=== PATIENT | female | born 1970 | race Caucasian/White ===

== ENCOUNTER 2016-04-07 03:07 | Inpatient (IN) | payer BC ==
[~2016-04-07] VITALS: Ht 167.6 cm; Wt 243.0 kg
[2016-04-07] VITALS (11 sets, daily range): BP systolic 93–113; BP diastolic 44–59; Ht 167.6 cm; Wt 243.0 kg
[~2016-04-07 03:07] MED LIST: ABILIFY10 MG PO; ACETAMINOPHEN325 MG PO; ACTOPLUS MET 151 TA2 PO; ACTOS15 MG PO; ADVAIR HFA [SP]12 GM INH; ASPIRIN81 MG PO; ATIVAN1 MG PO; BAYER CHEWABLE81 MG PO; BUMETANIDE0.5 MG PO; BUMEX 1 MG TAB1 MG PO; BUMEX 1 MG/1 MG/4 ML PO; CARDIZEM CD240 MG PO; CIPRO500 MG PO; CLEOCIN HCL150 MG PO; COLACE100 MG PO; CYCLOBENZAPRINE10 MG PO; DETROL2 MG PO; DILAUDID2 MG PO; DIOVAN320 MG PO; ELIQUIS2.5 MG PO; ESTER-C 500 MG1 TAB; FERROUS SULFAT325 MG PO; GLUCOPHAGE500 MG PO; HYDROCODONE-APA1 TAB PO; K-DUR20 MEQ PO; K-TAB10 MEQ PO; KLOR-CON M2020 MEQ PO; LANTUS INSULIN10 ML SC; LANTUS SOL100 UNIT/1 SC; LASIX40 MG PO; LEVAQUIN750 MG PO; LEVOTHYROXINE100 MCG PO; LEVOTHYROXINE75 MCG PO; LOMOTIL TABLET1 TAB PO; LOPRESSOR25 MG PO; LOZOL1.25 MG PO; MAG-OX 400 MG400 MG PO; MAGNESIUM OXID500 MG PO; MATZIM LA420 MG PO; METAMUCIL FIB1 WAFER PO; METOPROLOL TAR100 M1 PO; MS CONTIN30 MG PO; MUCINEX DM ER1 EAC1 PO; MULTIPLE VITAMI1 TA1 PO; NEURONTIN 300300 MG PO; PHENERGAN25 M1 PO; PREVACID30 MG PO; PROMOD LIQUID P30 M1 PO; PROTONIX20 MG PO; PROTONIX40 MG PO; PROVENTIL HFA6.7 GM INH; PROZAC40 MG PO; RELAFEN500 MG PO; RELAFEN750 MG PO; REVATIO20 MG PO; RIFADIN300 MG PO; SINGULAIR10 MG PO; SUPER B COMPLE150 MG PO; SYNTHROID50 MCG PO; TEKTURNA300 MG PO; TOLTERODINE PO; TOPAMAX100 MG PO; TOPAMAX50 MG PO; TOPROL XL200 MG PO; TUMS500 MG PO; VITAMIN D31000 UNIT PO; VYVANSE50 MG PO; VYVANSE70 MG PO; XOPENEX 1.1.25 MG/3 UPD; ZOFRAN4 MG PO
[2016-04-07 04:33] LABS: APPEARANCE CLOUDY (CLEAR); BILIRUBIN NEGATIVE (NEGATIVE); COLOR DK YELLOW (YELLOW); GLUCOSE NEGATIVE (NEGATIVE); KETONE NEGATIVE (NEGATIVE); LEUKOCYTE ESTERASE 2+ (NEGATIVE); NITRITE POSITIVE (NEGATIVE); PROTEIN TRACE mg/dL (NEGATIVE); SPECIFIC GRAVITY 1.015 (1.005-1.020); UROBILINOGEN NORMAL (NORMAL)
[2016-04-07 04:45] LABS: RED CELLS - URINE 25-50 /hpf (0-5); WHITE CELLS - URINE >50 /hpf (0-5)
[2016-04-07 04:46] LABS: BACTERIA MANY /hpf (NONE SEEN); CALCIUM OXALATE CRYSTALS 25-50 /hpf (NONE SEEN); EPITHELIAL CELLS 0-5 /hpf (0-5); GRANULAR CAST 0-5 /lpf (NONE SEEN); HYALINE CAST 0-5 /lpf (NONE SEEN); MUCUS >1+ /lpf (NONE SEEN)
--- NOTE | 2016-04-07 07:53 | NUR ---
* Is the patient Alert and Oriented? Yes 0 * PCP DR. BIRCH 0 * Pharmacy [facility] PROVIDES MEDICATION 0 * Preadmission Environment [facility] 0 * Facility Name [facility] 0 * ADLs Total Dependent 0 * Equipment None 0 * List name and contact numbers for known caregivers / representatives who currently or will assist patient after discharge: PARENTS: ARELY AND JOSE MARIA RUSSO 0 * Community resources currently utilized None 0 * Additional services required to return to the preadmission environment? No 0 * Can the patient safely return to the preadmission environment? Yes 0 * Has this patient been hospitalized within the prior 30 days at any hospital? 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 I SPOKE WITH HER PARENTS, ARELY AND JOSE MARIA RUSSO. THEY TELL ME THAT PATIENT HAS BEEN IN THE [facility] SINCE OCTOBER 2015. HER PCP IS DR. BIRCH. LUZ MARIA IS BEDFAST AND UNABLE TO CARE FOR HERSELF. THE PLAN IS FOR THE PATIENT TO RETURN TO THE [facility] AT DISCHARGE.
[2016-04-07 10:40] LABS: BASOPHILS 0.2 % (0.0-2.0); EOSINOPHILS 0.8 % (0-7); HEMATOCRIT 30.3 % (36.0-48.0); HEMOGLOBIN 9.6 g/dL (12-16); IMMATURE GRANULOCYTES 0.6 % (0-5); LYMPHOCYTES 5.5 % (15-50); MCH 29.3 pg (26.0-34.0); MCHC 31.7 g/dL (31.0-37.0); MCV 92.4 fL (80.0-100.0); MEAN PLATELET VOLUME 10.5 fL (7.4-10.4); MONOCYTES 5.5 % (2-11); NEUTROPHILS 87.4 % (40-80); PLATELET COUNT 274 10x3/uL (130-400); RBC 3.28 10x6/uL (4.00-5.40); WBC 17.8 10x3/uL (4.8-10.8)
[2016-04-07 10:53] LABS: ALBUMIN 1.8 g/dL (3.4-5.0); ANION GAP 14.2 mmol/L (8-16); BILIRUBIN - TOTAL 2.25 mg/dL (0.2-1.3); CALCIUM 9.2 mg/dL (8.5-10.1); CARBON DIOXIDE 24.8 mmol/L (21.0-32.0); CREATININE - SERUM 1.4 mg/dL (0.6-1.3); PROTEIN - SERUM 6.4 g/dL (6.4-8.2)
--- NOTE | 2016-04-07 11:08 | NUR ---
1100- BATH AND LINENS CHANGED, WEEPING FROM BLISTERS ON R SIDE OF ABD NOTED. CLEANED AND LINENS CHANGED.
--- NOTE | 2016-04-07 11:43 | NUR ---
1143-CRITICAL AMONIA REPORTED TO DR SALAS. REC'D ORDERS.
--- NOTE | 2016-04-07 14:48 | NUR ---
PT TRANSFERED TO [facility] BED. WEAPING EDEMA ON LINENS. PT CLEANED AND LINENS CHANGED.
--- NOTE | 2016-04-07 15:09 | NUR ---
1530- LEVOPHED TITRATED TO OFF, BP 98/60. RT GROIN DSNG CDI. NO HEMATOMA.
--- NOTE | 2016-04-07 19:30 | NUR ---
ASSESSMENT COMPLETE. S1S2. NSR SHOWING ON MONITOR. PT ON TURN BED. WEEPING EDEMA NOTED TO EXTREMITIES. 22GAUGE PIV IN RIGHT CHEST. PT HAS CHRONIC CATH IN PLACE. WEAKNESS AND SWELLING IN ALL EXTREMITIES; OBESE. DIFFICULTY MAKING POSITION CHANGES. PT CONFUSED ORIENTED TO SELF. REDDENED AREA BILATERAL LEGS; REDDENED AREA BUTTOCKS/COCCYX. VSS. SEE FLOW SHEET FOR DETAILS.
--- NOTE | 2016-04-07 21:45 | NUR ---
PT RESTING; EYES CLOSED. NO DISTRESS NOTED. VSS. WILL CONTINUE TO MONITOR.
--- NOTE | 2016-04-07 22:17 | NUR ---
PATIENT RECIEVED FROM ICU ON 2LPM O2 VIA NC. MILD CONFUSION NOTED WITH SOME SLOW TO RESPOND
[2016-04-08] VITALS: BP 121/76
--- NOTE | 2016-04-08 02:07 | NUR ---
PATIENT AWAKE AND ALERT, STATED HE HAD 10/10 PAIN TO THE ABDOMEN WITH NO NAUSEA. HE IS USING HIS DIRECTOR HRIS
[2016-04-08 04:00] VITALS: BP 136/69
[2016-04-08 05:39] LABS: BASOPHILS 0.2 % (0.0-2.0); EOSINOPHILS 2.5 % (0-7); HEMATOCRIT 29.6 % (36.0-48.0); HEMOGLOBIN 9.3 g/dL (12-16); IMMATURE GRANULOCYTES 0.7 % (0-5); MCHC 31.4 g/dL (31.0-37.0); MCV 92.2 fL (80.0-100.0); MEAN PLATELET VOLUME 10.6 fL (7.4-10.4); MONOCYTES 9.6 % (2-11); PLATELET COUNT 288 10x3/uL (130-400); RBC 3.21 10x6/uL (4.00-5.40); RDW 16.1 % (11.5-14.5)
[2016-04-08 05:45] LABS: ANION GAP 16.5 mmol/L (8-16); CALCIUM 9.4 mg/dL (8.5-10.1); CARBON DIOXIDE 22.3 mmol/L (21.0-32.0); CREATININE - SERUM 1.6 mg/dL (0.6-1.3); POTASSIUM - SERUM 4.8 mmol/L (3.5-5.1)
[2016-04-08 05:51] LABS: WBC 12.1 10x3/uL (4.8-10.8)
[2016-04-08 08:19] VITALS: BP 100/60
[2016-04-08 12:42] VITALS: BP 104/47
[2016-04-08 16:03] VITALS: BP 104/66
--- NOTE | 2016-04-08 17:39 | NUR ---
PT HAS HAD SEVERAL VERY LARGE LOOSE STOOLS TODAY. REFUSING CHRONULAC AT THIS TIME STILL. PADS UNDER LEGS AND TRUNK CHANGED SEVERAL TIMES TODAY DUE TO WEEPING. DRESSING CHANGED TO RIGHT HIP AREA TO INCLUDE 2 ABD PADS AND TAPE. NUMEROUSE BLISTERS NOTED TO BODY. WEIGHT AT 483 PER BEDSCALE.
[2016-04-09] VITALS: BP 82/40
[2016-04-09 04:00] VITALS: BP 98/58
--- NOTE | 2016-04-09 07:00 | NUR ---
PT REC'D FROM LAMIN MERCADO. PT RESTING IN BED WITH FAMILY IN ROOM. AAOX4. RATING CURRENT PAIN IN LEGS 09/03. WANTING TO KNOW WHY PAIN MEDICATION IS STILL ON HOLD. TOLD HER I WOULD SPEAK WITH THE DOCTOR. 3L OF O2 VIA NC ON. PT HAS DRY HACKING COUGH. SKIN TIGHT, WARM, AND MOIST. DRESSING TO RT SIDE CLEAN, DRY, AND INTACT. BED LOW, CALL LIGHT IN REACH, WILL CPOC.
[2016-04-09 08:03] LABS: BASOPHILS 0.4 % (0.0-2.0); EOSINOPHILS 2.9 % (0-7); HEMATOCRIT 29.2 % (36.0-48.0); HEMOGLOBIN 9.4 g/dL (12-16); IMMATURE GRANULOCYTES 1.7 % (0-5); LYMPHOCYTES 13.4 % (15-50); MCHC 32.2 g/dL (31.0-37.0); MCV 90.1 fL (80.0-100.0); MEAN PLATELET VOLUME 10.6 fL (7.4-10.4); MONOCYTES 10.5 % (2-11); NEUTROPHILS 71.1 % (40-80); PLATELET COUNT 282 10x3/uL (130-400); RBC 3.24 10x6/uL (4.00-5.40); RDW 15.9 % (11.5-14.5); WBC 13.8 10x3/uL (4.8-10.8)
[2016-04-09 08:20] LABS: ALBUMIN 1.5 g/dL (3.4-5.0); ANION GAP 15.2 mmol/L (8-16); BILIRUBIN - TOTAL 1.87 mg/dL (0.2-1.3); CARBON DIOXIDE 23.9 mmol/L (21.0-32.0); CREATININE - SERUM 1.8 mg/dL (0.6-1.3); POTASSIUM - SERUM 4.1 mmol/L (3.5-5.1)
[2016-04-09 09:06] VITALS: BP 97/52
--- NOTE | 2016-04-09 11:50 | NUR ---
MORNING MEDS PASSED. CH AMMONIA OF 58, DR'S AWARE AND ALREADY ON 45ML'S OF LACTULOSE. DR. BREAUX IN ROOM DISCUSSING POC. STATED HE WANTED TO WAIT TO RESTART PAIN MEDS DUE TO AMS ON ADMIT. DR. BREAUX STATES HE WANTS OF NEW FRANCIS AND NEW UA AND UC DONE. WILL PUT IN ORDERS STATED. BED LOW, CALL LIGHT IN REACH, WILL CPOC.
[2016-04-09 12:26] VITALS: BP 121/62
[2016-04-09 16:13] VITALS: BP 110/55
--- NOTE | 2016-04-09 16:55 | NUR ---
FSBS 236, 4 UNITS OF HUMALOG ADMINISTERED PER SS TO L ARM. BED LOW, CALL LIGHT IN REACH, WILL CPOC.
--- NOTE | 2016-04-09 18:00 | NUR ---
NEW FRANCIS CATHETER INSERTED USING STERILE TECHNIQUE. X4 ASSIST FROM STAFF TO POSITION PT. IMMEDIATE RETURN OF CLEAR YELLOW URINE WITH SOME BLOOD CLOTS IN IT. STAT LOCK APPLIED TO R LEG. BED LOW, CALL LIGHT IN REACH, WILL CPOC.
[2016-04-09 19:00] VITALS: BP 91/50
[2016-04-10] VITALS: BP 100/60
--- NOTE | 2016-04-10 01:10 | NUR ---
PT RESTING IN BED. NO SIGNS OF DISTRESS. NO COMPLAINTS OF PAIN. RECEIVING BREATHING TREATMENT. NO NEEDS AT THIS TIME.
[2016-04-10 04:00] VITALS: BP 95/52
--- NOTE | 2016-04-10 07:00 | NUR ---
PT REC'D FROM LAMIN MERCADO. RESTING IN BED WATCHING TV. AAOX4. NO COMPLAINTS AT THIS TIME. RESP EVEN AND UNLABORED. BED LOW, CALL LIGHT IN REACH, WILL CPOC.
[2016-04-10 07:32] LABS: BASOPHILS 0.4 % (0.0-2.0); EOSINOPHILS 4.4 % (0-7); HEMATOCRIT 29.6 % (36.0-48.0); HEMOGLOBIN 9.3 g/dL (12-16); IMMATURE GRANULOCYTES 4.8 % (0-5); LYMPHOCYTES 11.2 % (15-50); MCH 28.7 pg (26.0-34.0); MCHC 31.4 g/dL (31.0-37.0); MCV 91.4 fL (80.0-100.0); MONOCYTES 10.4 % (2-11); NEUTROPHILS 68.8 % (40-80); PLATELET COUNT 304 10x3/uL (130-400); RBC 3.24 10x6/uL (4.00-5.40); RDW 15.8 % (11.5-14.5)
[2016-04-10 07:48] LABS: ALBUMIN 1.4 g/dL (3.4-5.0); BILIRUBIN - TOTAL 1.7 mg/dL (0.2-1.3); CALCIUM 8.7 mg/dL (8.5-10.1); CARBON DIOXIDE 24.6 mmol/L (21.0-32.0); CREATININE - SERUM 1.7 mg/dL (0.6-1.3); POTASSIUM - SERUM 3.6 mmol/L (3.5-5.1); PROTEIN - SERUM 6.9 g/dL (6.4-8.2)
[2016-04-10 08:22] VITALS: BP 91/51
--- NOTE | 2016-04-10 11:00 | NUR ---
MORNING MEDS PASSED AT THIS TIME. DRESSING TO R ABD CHANGED DUE TO SEROUS, ODOROUS DRAINAGE. FRANCIS CATHETER CLAMPED TO COLLECT IN BLADDER AND OBTAIN URINE SAMPLE. ASSISTED PT ONTO BED WHITEHEAD. WILL CPOC.
--- NOTE | 2016-04-10 11:45 | NUR ---
PT HAD LARGE WATERY BM THAT WAS GREEN. NEW STAT LOCK PLACED ON RT LEG. URINE SAMPLE OBTAINED FROM PORT ON FRANCIS. WILL SEND TO LAB. PT REPOSITIONED IN BED. BED LOW, CALL LIGHT IN REACH, WILL CPOC.
--- NOTE | 2016-04-10 12:10 | NUR ---
CURRENT FSBS 167. PT REFUSING INSULIN AT THIS TIME. WILL CONTINUE TO MONITOR.
[2016-04-10 12:23] VITALS: BP 120/56
[2016-04-10 13:02] LABS: APPEARANCE SLT CLOUDY (CLEAR); BACTERIA MODERATE /hpf (NONE SEEN); BILIRUBIN NEGATIVE (NEGATIVE); CALCIUM OXALATE CRYSTALS RARE /hpf (NONE SEEN); COLOR YELLOW (YELLOW); GLUCOSE NEGATIVE (NEGATIVE); HYALINE CAST 0-5 /lpf (NONE SEEN); KETONE NEGATIVE (NEGATIVE); LEUKOCYTE ESTERASE 1+ (NEGATIVE); MUCUS <1+ /lpf (NONE SEEN); NITRITE NEGATIVE (NEGATIVE); PROTEIN NEGATIVE (NEGATIVE); UROBILINOGEN NORMAL (NORMAL)
[2016-04-10 16:38] VITALS: BP 110/58
--- NOTE | 2016-04-10 17:00 | NUR ---
CURRENT FSBS 221. 4 UNITS OF HUMALOG ADMINISTERED PER SS TO L ARM. BED LOW, CALL LIGHT IN REACH, WILL CPOC.
[2016-04-10 19:00] VITALS: BP 105/52
--- NOTE | 2016-04-10 19:47 | NUR ---
PT REPORT GIVEN TO LAMIN MERCADO.
--- NOTE | 2016-04-10 19:52 | NUR ---
REC;D. IN BED CONTACT ISOLATION REMAINS IN PROGRESS.4+ WEEPING EDEMA ALL EXT. WITH REDNESS.ALSO RT. SIDE AND LOWER ABD. PELVIC AREA. FRANCIS PATENT DRAINING DK. JOSÉ URINE.SPECIALITY BED. WILL CONTINUE TO MONITOR FOR ANY CHGES. AND FOLLOW CURRENT PLAN OF CARE.
--- NOTE | 2016-04-11 02:00 | NUR ---
RESTING WITH EYES CLOSED, RESP WITH EASE, NO DISTRESS NOTED, SAFETY PRECAUTIONS IN PLACE, CL IN REACH
[2016-04-11 04:38] LABS: BASOPHILS 0.5 % (0.0-2.0); EOSINOPHILS 4.4 % (0-7); HEMATOCRIT 29.6 % (36.0-48.0); HEMOGLOBIN 9.5 g/dL (12-16); IMMATURE GRANULOCYTES 7.1 % (0-5); LYMPHOCYTES 11.4 % (15-50); MCH 29.1 pg (26.0-34.0); MCHC 32.1 g/dL (31.0-37.0); MCV 90.8 fL (80.0-100.0); MEAN PLATELET VOLUME 10.5 fL (7.4-10.4); MONOCYTES 9.8 % (2-11); NEUTROPHILS 66.8 % (40-80); PLATELET COUNT 309 10x3/uL (130-400); RBC 3.26 10x6/uL (4.00-5.40); WBC 16.6 10x3/uL (4.8-10.8)
[2016-04-11 04:51] LABS: ANION GAP 15.6 mmol/L (8-16); CALCIUM 9.3 mg/dL (8.5-10.1); CARBON DIOXIDE 22.2 mmol/L (21.0-32.0); CREATININE - SERUM 1.7 mg/dL (0.6-1.3); POTASSIUM - SERUM 3.8 mmol/L (3.5-5.1)
--- NOTE | 2016-04-11 07:15 | NUR ---
SLEEPING QUIETLY AT PRESENT RESP EVEN AND UNLABORED AT PRESENT DSG TO RT ABD CLEAN DRY INTACT AT PRESENT ABD HARD AT PRESENT IV CONT AT 10CC/HR/IVAC.
--- NOTE | 2016-04-11 07:42 | HP ---
PATIENT: JANETTE RUSSO MEDICAL RECORD: [id number] ACCOUNT: [id number] LOCATION:D.[id number] : 70 ADMISSION DATE: 04/07/16 HISTORY AND PHYSICAL EXAMINATION CHIEF COMPLAINT: Altered mental status and confusion. HISTORY OF PRESENT ILLNESS: The patient is a 45-year-old female who is morbidly obese. She had recently been admitted to the [facility]. She has been unable to care for herself. She is morbidly obese and is bedbound. Apparently, over the last couple days, she has had more confusion. She has had a possibly urinary tract infection. This continued to worsen. She presented to the Emergency Room for evaluation. PAST MEDICAL HISTORY: Significant that the patient has had cough. She has had a history of morbid obesity. The patient has also had hypertension, gastroesophageal reflux, and diabetes mellitus. The patient has had pulmonary hypertension, congestive heart failure, history of asthma and hypothyroidism. PAST SURGICAL HISTORY: This patient has had a cholecystectomy and bilateral ankle fracture. She had a left hip replacement. She is a . SOCIAL HISTORY: The patient is single. She is a 4-year college graduate. Former smoker, quit in November 1999. No alcohol consumption. FAMILY HISTORY: History of depression as well as hypertension. Mother and father both are living. ALLERGIES: SHE IS ALLERGIC TO DYAZIDE, HYDROCHLOROTHIAZIDE, SULFA, TRIAMTERENE. MEDICATIONS: Include Valsartan 320 mg once daily, Actos plus metformin 15/500 1 p.o. b.i.d., Metoprolol ER 200 mg 1 p.o. every day, Bumex 0.5 mg once a day, KCl 20 mEq once a day, Detrol 2 mg once a day, nabumetone 750 once a day, Prozac 80 mg once a day, indapamide 1.25 p.r.n., levothyroxine 75 mcg once a day, diltiazem 420 mg once a day, ferrous sulfate 325 once a day, vitamin ____ 100 mg once a day, Flexeril 10 mg p.o. q.8 hours p.r.n., Advair 115/21 one puff b.i.d., Singulair 10 mg once a day, Ativan 1 mg p.r.n., aspirin 81 mg once a day, and [place] 10/325 p.r.n. REVIEW OF SYSTEMS: CONSTITUTIONAL: She denies any headaches, seizures, or syncope. She denies change in visual or auditory acuity. PULMONARY: She has had a cough. She denied congestion. CARDIOVASCULAR: No chest pain, palpitations, PND or orthopnea. GASTROINTESTINAL: No chronic nausea, vomiting, melena or hematochezia. GENITOURINARY: No urgency, frequency, or dysuria. PHYSICAL EXAMINATION: GENERAL: She is a morbidly obese female who is lying supine in the bed. Her weight is over 480 pounds, BMI of 77.5. VITAL SIGNS: Temperature 99, her pulse 76, respirations 20, blood pressure 124/68, O2 sat is 98% on room air. HEENT: Head is normocephalic. No lesions. Ears: TMs clear. Eyes: Pupils equal, round and reactive to light. Extraocular movements intact. Nasal cavity, oral cavity and oropharynx clear. HISTORY AND PHYSICAL [id number] JANETTE RUSSO NECK: Supple. There is no adenopathy. HEART: Has regular rhythm. No murmurs, gallops or rubs. LUNGS: Clear. ABDOMEN: Soft, bowel sounds positive and some suprapubic tenderness is noted. EXTREMITIES: The patient has 2+ dependent edema. She has a moderate amount of erythema. LABORATORY DATA: White count was elevated at 13.9, hemoglobin 9.2, hematocrit was 28.8 and her platelets were 275. She had a good blood sugar of 185, BUN is 42, creatinine 1.5. Sodium was 136, potassium 5, chloride is 103, CO2 is 24. Her urine shows 2+ blood. She has greater than 50 wbc's per high power field between 25 and 50 rbc's per high power field, many bacteria were seen. She had ABGs 7.48 pH, pCO2 was 28.9, her O2 was 109, bicarbonate was 21.5, and O2 sat 98. ASSESSMENT: 1. Pyelonephritis early sepsis. 2. Morbid obesity. 3. Diabetes. 4. Hypothyroidism. 5. History of congestive heart failure. 6. History of chronic renal insufficiency. 7. Diabetes. PLAN: The patient was admitted, placed on Levaquin as well as Zosyn and will obtain blood cultures as well as urine cultures and also start the patient on Humalog sliding scale q.a.c. and q.h.s. and continue to evaluate. TRANSINT:[id number] Voice Confirmation ID: [id number] DOCUMENT ID: [id number] YENNIFER BIRCH MD at 0742 CC: [id number] DICTATION DATE: 04/07/16711 GROUND SYSTEMS ENGINEER: 04/07/16 0837 ADM IN [facility] [address] [id number]
--- NOTE | 2016-04-11 09:00 | NUR ---
MOM AND DAD AT BEDSIDE MEDS GIVEN ALISSA WELL AT PRESENT N/C.
[2016-04-11 10:20] VITALS: BP 103/39
--- NOTE | 2016-04-11 11:00 | NUR ---
DOZING AT SHORT INTERVALS AT PRESENT DENIES ANY OTHER NEEDS AT PRESENT.
--- NOTE | 2016-04-11 13:00 | NUR ---
WATCHING TV QUIETLY AT PRESENT PARENTS AT BEDSIDE.
--- NOTE | 2016-04-11 13:08 | NUR ---
SLEEPING QUIETLY AT PRESENT RESP EVEN AND UNLABORED AT PRESENT DENIES ANY NEEDS AT PRESENT FRANCIS CATH IN PLACE AND DRAINING YELLOW URINE RAMON LOWER EXTERMETIES AT PRESENT.
[2016-04-11 13:50] VITALS: BP 83/44
--- NOTE | 2016-04-11 13:54 | NUR ---
NUTRITION MONITORING & EVAL TOLERATING AHA DIET. 50% INTAKE LUNCH. RD FOLLOWING
--- NOTE | 2016-04-11 15:00 | NUR ---
QUIET IN ROOM N/C VOICED AT PRESENT.
[2016-04-11 16:58] VITALS: BP 115/51
--- NOTE | 2016-04-11 17:00 | NUR ---
AWAKE ALERT AT PRESENT N/C WATCHING YV QUIETLY.
--- NOTE | 2016-04-11 19:30 | NUR ---
PATIENT HAVING PAIN IN HER LEFT LEG AND HIP. PAGED DR. GO WHO SAID IT WAS OK TO GIVE PATIENT TYLENOL FOR PAIN.
[2016-04-11 21:00] VITALS: BP 114/53
[2016-04-12 01:00] VITALS: BP 122/51
--- NOTE | 2016-04-12 03:10 | NUR ---
CHANGED BANDAGE ON PATIENT'S RIGHT SIDE.
[2016-04-12 05:00] VITALS: BP 102/53
[2016-04-12 07:11] LABS: ANION GAP 16.1 mmol/L (8-16); CARBON DIOXIDE 21.6 mmol/L (21.0-32.0); CREATININE - SERUM 1.6 mg/dL (0.6-1.3); PHOSPHOROUS 3.6 mg/dL (2.5-4.9); POTASSIUM - SERUM 3.7 mmol/L (3.5-5.1)
[2016-04-12 07:38] LABS: BASOPHILS 0.6 % (0.0-2.0); HEMATOCRIT 28.4 % (36.0-48.0); HEMOGLOBIN 9.1 g/dL (12-16); IMMATURE GRANULOCYTES 9.7 % (0-5); LYMPHOCYTES 10.9 % (15-50); MCH 29.3 pg (26.0-34.0); MCV 91.3 fL (80.0-100.0); MEAN PLATELET VOLUME 10.5 fL (7.4-10.4); MONOCYTES 7.7 % (2-11); NEUTROPHILS 67.1 % (40-80); PLATELET COUNT 333 10x3/uL (130-400); RBC 3.11 10x6/uL (4.00-5.40); RDW 16.2 % (11.5-14.5)
--- NOTE | 2016-04-12 08:00 | NUR ---
PT ASSESSMENT COMPLETE NO DISTRESS NTOED VOICES ALL NEEDS TO STAFF COMLAINS OF PAIN TO RIGHT HIP SPOKE WITH DR BIRCH NEW ORDER FOR NORCO FOR PAIN WILL GIVE PER ORDER FOR PAIN CONTROL. FRANCIS PATENT TO CLEAR YELLOW URINE CATH CARE PER ORDER. WILL MONITOR.,
[2016-04-12 08:29] VITALS: BP 114/42
--- NOTE | 2016-04-12 10:44 | NUR ---
RESTING QUIETLY IN BED. DENIES NEEDS. NO PAIN AT THIS TIME. ON BIG BOY BED. REPORTS USE OF PO PAIN MEDS EFFECTIVE.
--- NOTE | 2016-04-12 13:17 | NUR ---
SITTING UP IN BED EATING LUNCH MEAL. NO DISTRESS NOTED FAMILY AT SIDE WANTS TO DISCHARGE BACK TO SKILLED NURSING.
[2016-04-12 13:36] VITALS: BP 120/42
[2016-04-12 15:59] VITALS: BP 110/53
[2016-04-12 19:00] VITALS: BP 100/47
[2016-04-13 04:00] VITALS: BP 103/45
[2016-04-13 07:38] LABS: HEMOGLOBIN 9.1 g/dL (12-16); MCH 28.8 pg (26.0-34.0); MCHC 31.4 g/dL (31.0-37.0); MCV 91.8 fL (80.0-100.0); MEAN PLATELET VOLUME 9.9 fL (7.4-10.4); PLATELET COUNT 345 10x3/uL (130-400); RBC 3.16 10x6/uL (4.00-5.40); RDW 16.1 % (11.5-14.5); WBC 20.8 10x3/uL (4.8-10.8)
[2016-04-13 07:40] LABS: ANION GAP 12.3 mmol/L (8-16); CALCIUM 8.8 mg/dL (8.5-10.1); CARBON DIOXIDE 25.1 mmol/L (21.0-32.0); CREATININE - SERUM 1.7 mg/dL (0.6-1.3); POTASSIUM - SERUM 3.4 mmol/L (3.5-5.1)
[2016-04-13 08:15] LABS: EOSINOPHILS 5 % (0-7); LYMPHOCYTES 10 % (15-50); MONOCYTES 4 % (2-11); NEUTROPHILS 73 % (40-80)
[2016-04-13 08:16] LABS: PLATELET ESTIMATE NORMAL
[2016-04-13 08:24] VITALS: BP 104/47
--- NOTE | 2016-04-13 13:00 | NUR ---
PATIENT CHANGED AND BATHED AT THIS TIME. DRESSING TO RIGHT SIDE CHANGED DUE TO DRAINAGE. BOUDREUXS PLACED TO SKIN FOLDS AND GROIN AND BUTTOCKS FOR RASH AND EXCORIATION. CATHETER CARE COMPLETE. IV INTACT. NO COMPLAINTS. CALL LIGHT WITHIN REACH.
[2016-04-13 13:07] VITALS: BP 106/45
[2016-04-13 15:50] VITALS: BP 129/48
--- NOTE | 2016-04-13 18:49 | NUR ---
PATIENT IN BED WITH EYES CLOSED RESTING QUIETLY AT THIS TIME. NO SIGNS OF DISTRESS OR COMPLAINTS. IV INTACT. CALL LIGHT WITHIN REACH.
[2016-04-13 19:00] VITALS: BP 95/42
--- NOTE | 2016-04-13 20:45 | NUR ---
AWAKE,ALERT,ORIENTED X 3. SKIN WARM DRY RESP EVEN AND UNALBOERED. SITTING UP IN BED WATCHING TV. DRSG TO RIGHT ABD.INTACT. NO DRAINAGE NOTED. IV TO RIGHT SHOULDER INTACT WITH NO REDNESS OR EDEMA NOTED. NS INFUSING AT KVO RATE. FRANCIS PATENT AND DRAINING CL YELLOW URINE. CL IN REACH.
[2016-04-14] VITALS: BP 94/38
--- NOTE | 2016-04-14 02:51 | NUR ---
EYES CLOSED RESP EVEN AND UNALBORED.NO DISTRESS NOTED. CL IN REACH.
[2016-04-14 04:00] VITALS: BP 99/39
--- NOTE | 2016-04-14 05:44 | NUR ---
EYES CLOSED RESPIRATIONS WITH EASE AND UNLABORED.
[2016-04-14 06:00] LABS: ANION GAP 15.5 mmol/L (8-16); CARBON DIOXIDE 21.7 mmol/L (21.0-32.0); CREATININE - SERUM 2.1 mg/dL (0.6-1.3)
[2016-04-14 06:03] LABS: POTASSIUM - SERUM 4.2 mmol/L (3.5-5.1)
--- NOTE | 2016-04-14 06:34 | NUR ---
NO CHANGE IN ASSESSMENT. CL IN REACH.
[2016-04-14 06:42] LABS: BASOPHILS 0.6 % (0.0-2.0); EOSINOPHILS 3.7 % (0-7); HEMATOCRIT 29.6 % (36.0-48.0); HEMOGLOBIN 9.4 g/dL (12-16); IMMATURE GRANULOCYTES 11.4 % (0-5); LYMPHOCYTES 8.4 % (15-50); MCH 29.2 pg (26.0-34.0); MCHC 31.8 g/dL (31.0-37.0); MCV 91.9 fL (80.0-100.0); MEAN PLATELET VOLUME 10.5 fL (7.4-10.4); MONOCYTES 6.3 % (2-11); NEUTROPHILS 69.6 % (40-80); PLATELET COUNT 375 10x3/uL (130-400); RBC 3.22 10x6/uL (4.00-5.40); RDW 16.3 % (11.5-14.5); WBC 22.3 10x3/uL (4.8-10.8)
--- NOTE | 2016-04-14 07:00 | NUR ---
REPORT RECIEVED ASSUMED CARE. PATIENT IN BED WITH IV INTACT. NO COMPLAINTS. CALL LIGHT WITHIN REACH.
--- NOTE | 2016-04-14 08:00 | NUR ---
ASSESSMENT COMPLETE, VS STABLE. NO COMPLAINTS AT THIS TIME. IV INTACT. FAMILY AT BEDSIDE. CALL LIGHT WITHIN REACH. DRESSING TO ABDOMEN DRY AND INTACT.
[2016-04-14 08:08] VITALS: BP 99/43
--- NOTE | 2016-04-14 10:00 | NUR ---
URINE AND STOOL SPECIMAN SENT TO LAB ORDERED.
[2016-04-14 12:31] VITALS: BP 109/40
--- NOTE | 2016-04-14 13:00 | NUR ---
PATIENT IN BED WITH EYES CLOSED RESTING QUIETLY. CALL LIGHT WITHIN REACH.
[2016-04-14 16:00] VITALS: BP 93/46
--- NOTE | 2016-04-14 17:00 | NUR ---
PATIENT IV IN RIGHT SHOULDER REMOVED. LEFT ARM WITH NEW IV BY VASCULAR NURSE. PATIENT HAS NO COMPLAINTS AT THIS TIME. SCHEDULED MEDS GIVEN. CALL LIGHT WITHIN REACH.
--- NOTE | 2016-04-14 18:22 | NUR ---
PATIENT REPOSITIONED AT THIS TIME. IV INTACT. NO COMPLAINTS. FRANCIS INTACT. CALL LIGHT WITHIN REACH.
--- NOTE | 2016-04-14 19:48 | NUR ---
PATIENT SLEEPING IN SEMI-FOWLERS POSITION. NO VISIBLE SIGNS OF DISTRESS.
--- NOTE | 2016-04-14 20:00 | NUR ---
AWAKE ,ALERT,NO COMPLAINTS VOICED.IV TO LEFT UPPER ARM INTACT WITH NO REDNESS OR EDEMA NOTED.CL IN REACH
[2016-04-14 22:41] VITALS: BP 115/48
--- NOTE | 2016-04-15 02:27 | NUR ---
WACHING TV.NO COMPLAINTS.CL IN REACH
--- NOTE | 2016-04-15 03:30 | NUR ---
PT RESTING QUIETLY, EYES CLOSED. RESP UNLABORED. NO DISTRESS NOTED. WILL CONTINUE TO MONITOR.
[2016-04-15 05:00] VITALS: BP 93/45
[2016-04-15 05:16] LABS: BASOPHILS 0.5 % (0.0-2.0); EOSINOPHILS 3.1 % (0-7); HEMATOCRIT 30.4 % (36.0-48.0); HEMOGLOBIN 9.5 g/dL (12-16); IMMATURE GRANULOCYTES 7.7 % (0-5); LYMPHOCYTES 9.4 % (15-50); MCH 29.1 pg (26.0-34.0); MCHC 31.3 g/dL (31.0-37.0); MEAN PLATELET VOLUME 10.5 fL (7.4-10.4); NEUTROPHILS 73.3 % (40-80); PLATELET COUNT 366 10x3/uL (130-400); RBC 3.27 10x6/uL (4.00-5.40); RDW 16.7 % (11.5-14.5)
[2016-04-15 05:37] LABS: ANION GAP 18.4 mmol/L (8-16); CALCIUM 9.3 mg/dL (8.5-10.1); CARBON DIOXIDE 20.5 mmol/L (21.0-32.0); MAGNESIUM - SERUM 2.1 mg/dL (1.8-2.4); PHOSPHOROUS 5.5 mg/dL (2.5-4.9)
[2016-04-15 05:45] LABS: CREATININE - SERUM 2.9 mg/dL (0.6-1.3); POTASSIUM - SERUM 4.9 mmol/L (3.5-5.1)
--- NOTE | 2016-04-15 05:51 | NUR ---
NO CHANGE IN ASSESSMENT. CL IN REACH
--- NOTE | 2016-04-15 07:50 | NUR ---
REPORT RECIEVED ASSUMED CARE. PATIENT IN BED WITH IV INTACT. NO COMOPLAINTS. CALL LIGHT WITHIN REACH.
[2016-04-15 08:04] VITALS: BP 102/42
--- NOTE | 2016-04-15 09:20 | NUR ---
PATIENT RECIEVED BED BATH. CHANGED AND CREAM PLACED ALL OVER RASHES AND REDDENED AREA AT THIS TIME. PATIENT HAS NO COMPLAINTS. IV INTACT. FRANCIS INTACT. CALL LIGHT WITHIN REACH.
--- NOTE | 2016-04-15 12:30 | NUR ---
PATIENT IN BED EATING AT THIS TIME WITH NO COMPLAINTS. IV INTACT. CALL LIGHT WITHIN REACH.
[2016-04-15 12:35] VITALS: BP 101/36
[2016-04-15 15:53] VITALS: BP 173/879
--- NOTE | 2016-04-15 16:45 | NUR ---
SPOKE WITH DR. GO'S NURSE ABOUT PATIENT DECREASED URINE. NEW ORDERS RECIEVED AND CARRIED OUT.
--- NOTE | 2016-04-15 18:50 | NUR ---
DR. CHILEL IN VISITING WITH PATIENT AND FAMILY. NO PROBLEMS AT THIS TIME.
[2016-04-15 20:20] VITALS: BP 115/44
[2016-04-16 00:36] VITALS: BP 99/48
[2016-04-16 04:34] VITALS: BP 114/40
[2016-04-16 05:50] LABS: BASOPHILS 0.6 % (0.0-2.0); EOSINOPHILS 2.2 % (0-7); HEMATOCRIT 29.8 % (36.0-48.0); HEMOGLOBIN 9.7 g/dL (12-16); IMMATURE GRANULOCYTES 6.8 % (0-5); LYMPHOCYTES 8.2 % (15-50); MCH 29.8 pg (26.0-34.0); MCHC 32.6 g/dL (31.0-37.0); MCV 91.7 fL (80.0-100.0); MEAN PLATELET VOLUME 10.2 fL (7.4-10.4); MONOCYTES 5.2 % (2-11); PLATELET COUNT 359 10x3/uL (130-400); RBC 3.25 10x6/uL (4.00-5.40); WBC 19.1 10x3/uL (4.8-10.8)
[2016-04-16 06:14] LABS: ANION GAP 17.1 mmol/L (8-16); CALCIUM 8.9 mg/dL (8.5-10.1); CARBON DIOXIDE 20.2 mmol/L (21.0-32.0); CREATININE - SERUM 3.6 mg/dL (0.6-1.3); PHOSPHOROUS 5.6 mg/dL (2.5-4.9); POTASSIUM - SERUM 5.3 mmol/L (3.5-5.1)
--- NOTE | 2016-04-16 08:00 | NUR ---
PT ASSESSMENT COMPLETE PT AWAKE AND ALERT ORINETED X 3 LUNGS CLEAR WITH DIMINISHED SOUNDS TO BILATERAL BASES HAS ABDOMINAL EDEMA WELL EDEMA NOTED TO BILATERAL LEGS AND FEET HAS 4+ EDEMA NOTED TO BILATERAL FEET REDNESS NTOED TO BILAT LOWER EXTREMTIES WEEPING EDEMA NOTED TO ABDOMEN AT RIGHT FLANK. FRANCIS PATENT TO DARK TEA COLORED URINE TO DRAIN BAG HAS ELEVATED CREATNINE AND BUN TODAY WELL INCREASED K+ MD ON UNIT WILL AWAIT ORDERS.
[2016-04-16 09:30] VITALS: BP 124/53
--- NOTE | 2016-04-16 11:47 | NUR ---
PT AWAKE AND ALERT ORIENTED X 3 NO ACUTE DISTRESS NOTED.
--- NOTE | 2016-04-16 12:12 | NUR ---
PT PENICILLIN DOSE THIS AM WAS UNABLE TO BE VERIFIED CORRECTLY POER THIS NURSE CALLED PHARMACY AND SPOKE WITH [facility] TO MIX PENICILLIN DOSE FOR CORRECT DOSING.
--- NOTE | 2016-04-16 12:29 | NUR ---
FAMILY AT BEDSIDE.PT WITHOUT DISTRESS.
[2016-04-16 12:42] VITALS: BP 103/36
[2016-04-16 17:03] VITALS: BP 119/69
--- NOTE | 2016-04-16 18:42 | NUR ---
HAS IV HANGING PER ORDER WITH 1 AMP NAHCO3 TOLERATING WELL WILL CONTINUE TO MONITOR NEW ORDERS FOR MORE URINE COLLECTION WILL CLAMP FRANCIS TO OBTAIN. URINE TO COLLECTION BAG DARK TEA COLORED.
[2016-04-16 20:00] VITALS: BP 115/50
[2016-04-17] VITALS (7 sets, daily range): BP systolic 91–105; BP diastolic 37–62
--- NOTE | 2016-04-17 00:30 | NUR ---
RESTING WITH EYES CLOSED, RESP WITH EASE, NO DISTRESS NOTED, CL IN REACH
[2016-04-17 01:47] LABS: CREATININE - URINE 148.8 mg/dL (30-125); POTASSIUM - URINE 53.7 MMOL/L (12.0-62.0); PRO/CRE RATIO URINE 0.8 mg/g; PROTEIN - URINE 114.4 mg/dL (0.0-11.9)
[2016-04-17 01:48] LABS: APPEARANCE TURBID (CLEAR); BILIRUBIN 1+ (NEGATIVE); COLOR AMBER (YELLOW); GLUCOSE NEGATIVE (NEGATIVE); KETONE NEGATIVE (NEGATIVE); LEUKOCYTE ESTERASE TRACE (NEGATIVE); NITRITE NEGATIVE (NEGATIVE); PROTEIN 1+ mg/dL (NEGATIVE); UROBILINOGEN NORMAL (NORMAL)
[2016-04-17 01:49] LABS: BACTERIA NONE SEEN /hpf (NONE SEEN); EPITHELIAL CELLS NSEEN /hpf (0-5); RED CELLS - URINE >50 /hpf (0-5); WHITE CELLS - URINE 0-5 /hpf (0-5); YEAST <1+ /hpf (NONE SEEN)
[2016-04-17 05:40] LABS: BASOPHILS 0.6 % (0.0-2.0); EOSINOPHILS 2.2 % (0-7); HEMATOCRIT 29.1 % (36.0-48.0); HEMOGLOBIN 9.4 g/dL (12-16); IMMATURE GRANULOCYTES 3.8 % (0-5); LYMPHOCYTES 8.6 % (15-50); MCH 29.3 pg (26.0-34.0); MCHC 32.3 g/dL (31.0-37.0); MCV 90.7 fL (80.0-100.0); MEAN PLATELET VOLUME 10.2 fL (7.4-10.4); MONOCYTES 5.8 % (2-11); PLATELET COUNT 362 10x3/uL (130-400); RBC 3.21 10x6/uL (4.00-5.40); RDW 16.7 % (11.5-14.5); WBC 19.8 10x3/uL (4.8-10.8)
[2016-04-17 06:03] LABS: ANION GAP 15.9 mmol/L (8-16); CALCIUM 8.2 mg/dL (8.5-10.1); CARBON DIOXIDE 20.2 mmol/L (21.0-32.0); CREATININE - SERUM 3.6 mg/dL (0.6-1.3); POTASSIUM - SERUM 5.1 mmol/L (3.5-5.1)
--- NOTE | 2016-04-17 20:00 | NUR ---
PATIENT SLEEPING IN SEMI-FOWLERS POSITION. NO VISIBLE SIGNS OF DISTRESS.
[2016-04-18 04:00] VITALS: BP 117/51
[2016-04-18 05:42] LABS: BASOPHILS 0.5 % (0.0-2.0); EOSINOPHILS 2.3 % (0-7); HEMATOCRIT 28.2 % (36.0-48.0); HEMOGLOBIN 9.1 g/dL (12-16); LYMPHOCYTES 7.4 % (15-50); MCH 29.3 pg (26.0-34.0); MCHC 32.3 g/dL (31.0-37.0); MCV 90.7 fL (80.0-100.0); MONOCYTES 7.3 % (2-11); NEUTROPHILS 78.5 % (40-80); PLATELET COUNT 383 10x3/uL (130-400); RBC 3.11 10x6/uL (4.00-5.40); WBC 19.5 10x3/uL (4.8-10.8)
[2016-04-18 06:25] LABS: ANION GAP 15.8 mmol/L (8-16); CALCIUM 7.9 mg/dL (8.5-10.1); CARBON DIOXIDE 20.1 mmol/L (21.0-32.0); CREATININE - SERUM 3.7 mg/dL (0.6-1.3); POTASSIUM - SERUM 4.9 mmol/L (3.5-5.1)
--- NOTE | 2016-04-18 07:30 | NUR ---
REPORT RCEIVED FROM GAME MASTER NURSE. CALL LIGHT IN REACH.
--- NOTE | 2016-04-18 07:45 | NUR ---
LYING IN BED,WITHOUT DISTRESS.RESP TX IN PROGRESS.FAMILY AT SIDE.CALL LIGHT IN REACH
[2016-04-18 08:47] VITALS: BP 90/40
--- NOTE | 2016-04-18 09:15 | NUR ---
ASSESSMENT COMPLETED. CALL LIGHT IN REACH. WILL CONTINUE WITH PLAN OF CARE.
--- NOTE | 2016-04-18 10:20 | NUR ---
TITO KEEPS COMING APART. WILL HAVE TO CHANGE
[2016-04-18 12:38] VITALS: BP 100/72
--- NOTE | 2016-04-18 12:56 | NUR ---
NYSTATIN POWDER AND S&S PO. FSBS 186. HUMALOG 2 UNITS SUBQ TO RIGHT ARM.
--- NOTE | 2016-04-18 14:10 | NUR ---
NORCO AND OTHER NOON MEDS ADMINISTERED. FRANCIS CATH REMOVED WITH TIP INTACT. NEW 18 FR CATH INSERTED.
[2016-04-18 15:25] LABS: CREATININE - URINE 89.8 mg/dL (30-125); POTASSIUM - URINE 31.7 MMOL/L (12.0-62.0); PRO/CRE RATIO URINE 2.2 mg/g; PROTEIN - URINE 201.5 mg/dL (0.0-11.9)
[2016-04-18 15:29] LABS: APPEARANCE HAZY (CLEAR); BILIRUBIN NEGATIVE (NEGATIVE); COLOR BROWN (YELLOW); GLUCOSE NEGATIVE (NEGATIVE); KETONE NEGATIVE (NEGATIVE); LEUKOCYTE ESTERASE 1+ (NEGATIVE); NITRITE NEGATIVE (NEGATIVE); PROTEIN 1+ mg/dL (NEGATIVE); UROBILINOGEN NORMAL (NORMAL)
[2016-04-18 15:30] LABS: BACTERIA MANY /hpf (NONE SEEN); EPITHELIAL CELLS 0-5 /hpf (0-5); RED CELLS - URINE >50 /hpf (0-5)
--- NOTE | 2016-04-18 16:30 | NUR ---
RESTING WITH EYES CLOSED. RESP EVEN AND UNLABORED. CALL LIGHT IN REACH.
[2016-04-18 16:48] VITALS: BP 116/90
--- NOTE | 2016-04-18 17:57 | NUR ---
FSBS 195. 2 UNITS INSULIN SUBQ TO RIGHT ARM. PROTONIX PO.
--- NOTE | 2016-04-18 17:58 | NUR ---
NORCO AND OTHER NOON MEDS ADMINISTERED. FRANCIS CATH REMOVED WITH TIP INTACT. NEW 18 FR CATH INSERTED.
--- NOTE | 2016-04-18 18:10 | NUR ---
NO CHANGES IN INITIAL ASSESSMENT. CALL LIGHT IN REACH. WILL CONTINUE WITH PLAN OF CARE.
[2016-04-18 19:00] VITALS: BP 103/36
--- NOTE | 2016-04-18 22:06 | NUR ---
PATIENT RESTING IN BED WATCHING TV. NO SIGNS OF DISTRESS NOTED. ALERT AND ORIENTED. DENIES ANY NEEDS AT THIS TIME. IV TO LEFT UPPER ARM NOTED WITHOUT REDNESS OR SWELLING. BED LOW. CALL LIGHT IN REACH.
[2016-04-19] VITALS: BP 113/39
--- NOTE | 2016-04-19 03:30 | NUR ---
PT IN BED GETTING CLEANED UP PER STAFF AT THIS TIME. SIDE RAILS ARE UP X 2. BED IS LOW. CALL LIGHT IS IN REACH.
[2016-04-19 04:00] VITALS: BP 105/43
[2016-04-19 05:51] LABS: BASOPHILS 0.7 % (0.0-2.0); EOSINOPHILS 2.4 % (0-7); HEMATOCRIT 28.2 % (36.0-48.0); HEMOGLOBIN 9.1 g/dL (12-16); IMMATURE GRANULOCYTES 2.7 % (0-5); LYMPHOCYTES 6.8 % (15-50); MCH 29.5 pg (26.0-34.0); MCHC 32.3 g/dL (31.0-37.0); MCV 91.6 fL (80.0-100.0); MEAN PLATELET VOLUME 10.1 fL (7.4-10.4); MONOCYTES 7.6 % (2-11); NEUTROPHILS 79.8 % (40-80); PLATELET COUNT 364 10x3/uL (130-400); RBC 3.08 10x6/uL (4.00-5.40); RDW 17.2 % (11.5-14.5); WBC 17.7 10x3/uL (4.8-10.8)
[2016-04-19 06:06] LABS: ANION GAP 17.7 mmol/L (8-16); CALCIUM 8.6 mg/dL (8.5-10.1); CARBON DIOXIDE 20.5 mmol/L (21.0-32.0); CREATININE - SERUM 3.9 mg/dL (0.6-1.3); POTASSIUM - SERUM 5.2 mmol/L (3.5-5.1)
--- NOTE | 2016-04-19 07:15 | NUR ---
REPORT RECEIVED FROM SURVIVAL SPECIALIST NURSE. CALL LIGHT IN REACH.
--- NOTE | 2016-04-19 08:03 | NUR ---
ASSESSMENT COMPLETED. NORCO PO WITH AM MEDS ADMINISTERED. FATHER IN ROOM. CALL LIGHT IN REACH. WILL CONTINUE WITH PLAN OF CARE.
[2016-04-19 08:08] VITALS: BP 105/26
--- NOTE | 2016-04-19 10:50 | NUR ---
NO NEEDS VOICED AT THIS TIME. FATHER AT BEDSIDE. CALL LIGHT IN REACH.
--- NOTE | 2016-04-19 11:05 | NUR ---
PATIENT RESTING QUIETLY WITH EYES CLOSED. NO SIGNS OF DISTRESS NOTED. FAMILY AT BEDSIDE. BED IN LOWEST POSITION, CALL LIGHT IN REACH. BED RAILS UP X'S 2.
[2016-04-19 11:52] VITALS: BP 110/42
--- NOTE | 2016-04-19 12:55 | NUR ---
NOON MEDS ADMINISTERED. FSBS 215. HUMALOG 2 UNITS SUBQ TO LEFT ARM. CALL LIGHT IN REACH.
--- NOTE | 2016-04-19 13:36 | NUR ---
PCN IVPB PER ORDER. CALL LIGHT IN REACH.
--- NOTE | 2016-04-19 13:46 | NUR ---
NUTRITION MONITORING & EVAL CHART REVIEWED. TOLERATING RENAL ADA DIET. GOOD PO INTAKE. WILL CONTINUE TO PROVIDE CURRENT DIET, MONITOR PT PROGRESS. RD FOLLOWING
--- NOTE | 2016-04-19 15:20 | NUR ---
RESTING WITH EYES CLOSED. RESP EVEN AND UNLABORED. CALL LIGHT IN REACH.
[2016-04-19 15:40] VITALS: BP 99/46
--- NOTE | 2016-04-19 17:37 | NUR ---
4 UNITS INSULIN SUBQ TO RIGHT ARM FOR BS OF 223. NORCO PO WITH MEDS.
--- NOTE | 2016-04-19 18:19 | NUR ---
NO CHANGES IN INITIAL ASSESSMENT. CALL LIGHT IN REACH. WILL CONTINUE WITH PLAN OF CARE.
[2016-04-19 20:00] VITALS: BP 101/47
--- NOTE | 2016-04-19 23:06 | NUR ---
PATIENT RESTING IN BED. BED BATH PROVIDED. NO NEEDS VOICED AT THIS TIME. BED LOW. CALL LIGHT IN REACH.
[2016-04-20] VITALS: BP 105/43
[2016-04-20 04:00] VITALS: BP 103/34
[2016-04-20 06:48] LABS: BASOPHILS 0.6 % (0.0-2.0); EOSINOPHILS 2.7 % (0-7); HEMATOCRIT 28.4 % (36.0-48.0); HEMOGLOBIN 9.1 g/dL (12-16); IMMATURE GRANULOCYTES 2.2 % (0-5); LYMPHOCYTES 8.7 % (15-50); MCH 29.2 pg (26.0-34.0); MEAN PLATELET VOLUME 10.1 fL (7.4-10.4); MONOCYTES 6.6 % (2-11); NEUTROPHILS 79.2 % (40-80); PLATELET COUNT 388 10x3/uL (130-400); RBC 3.12 10x6/uL (4.00-5.40); RDW 17.5 % (11.5-14.5); WBC 15.7 10x3/uL (4.8-10.8)
[2016-04-20 06:59] LABS: ANION GAP 14.9 mmol/L (8-16); CALCIUM 8.7 mg/dL (8.5-10.1); CARBON DIOXIDE 21.9 mmol/L (21.0-32.0); CREATININE - SERUM 3.8 mg/dL (0.6-1.3); POTASSIUM - SERUM 4.8 mmol/L (3.5-5.1)
--- NOTE | 2016-04-20 08:03 | NUR ---
AWAKE ALERT COLOR ADQ SKIN WARM AND DRY RESP EVEN AND UNLABORED AT PRESENT FATHER AT BEDSIDE CONT RAMON EDEMA TO EXTREMETIES NOTED AT PRESENT.
[2016-04-20 08:14] VITALS: BP 102/45
--- NOTE | 2016-04-20 09:13 | CN ---
PATIENT NAME:JANETTE ESCOBAR MEDICAL RECORD: [id number] : 70 LOCATION:D.MS [facility]26 ADMIT DATE: 04/07/16 ACCOUNT: [id number] CONSULTING PHYSICIAN: REMINGTON SALAS MD REFERRING PHYSICIAN: YENNIFER BIRCH MD DATE OF CONSULTATION: 04/07/2016 Pulmonary Consultation CONSULT REQUESTING PHYSICIAN: Yennifer Birch MD REASON FOR CONSULTATION: Sepsis, UTI and acute mental status changes. HISTORY OF PRESENT ILLNESS: Ms. Escobar is a 45-year-old female, very well known to me. She has a history of severe pulmonary hypertension, asthma, morbid obesity, now the patient is a long term resident. She is mainly bedbound. The patient was brought into the ER for evaluation of her mental status changes. She was very lethargic and sleepy. The UA showed possible she has a UTI. The patient does have a chest x-ray yesterday in the long term and it did not show any pneumonia and it showed prominent pulmonary vessels. There are no CBC was done in the hospital. No chemistry was done. REVIEW OF SYSTEMS: Mainly in the history of present illness. PAST MEDICAL HISTORY: 1. Pulmonary hypertension of severe degree, PA pressure of 92/68 with significant response to vasodilator trial and it dropped from 78 to 41. 2. History of asthma. 3. Morbid obesity more than 500 pounds. 4. Restrictive lung disease. 5. Allergic rhinitis. 6. Depression. PAST SURGICAL HISTORY: 1. She has left hip repaired in the past. 2. Ovarian cyst removed. ALLERGIES: SHE IS ALLERGIC TO SULFA AND DYAZIDE. PRESENT MEDICATIONS: The patient could not afford the pulmonary hypertension medication. The insurance is not paying for it. Her other medication on [employer] was reviewed. PERSONAL HISTORY AND SOCIAL HISTORY: The patient is a nonsmoker, nondrinker. FAMILY HISTORY: Noncontributory. PHYSICAL EXAMINATION: GENERAL: The patient is markedly obese. She open eyes by calling. VITAL SIGNS: The blood pressure is 107/55, pulse is 68, respiration is 20, temperature 99, and SPO2 of 93% on 2 liters nasal cannula. HEENT: Conjunctivae are pink. Sclerae are not icteric. NECK: Supple, no JVD. CHEST: The chest excursion is minimal on both sides. There is wheeze on forceful expiration. No crackles. CONSULT REPORT [id number] JANETTE ESCOBAR HEART: Rate and rhythm regular. The heart sounds are distant. ABDOMEN: Soft, bowel sounds present. No hepatosplenomegaly. RECTAL: Deferred. EXTREMITIES: No cyanosis, no clubbing. There are 2+ pedal edema. SKIN: Warm, normal turgor. CENTRAL NERVOUS SYSTEM: There is no obvious cranial nerve abnormality. The patient is responding, but she is confused. LABORATORY DATA: ABG: The pH is 7.48, pCO2 was 28.9, the bicarbonate was 21.5, the saturation 98.7%. This was done on 6 liters on CPAP. The lactic acid level was 1.5. IMPRESSION: 1. Leskp-xg-huuxtrp hypoxic respiratory failure, which is multifactorial. 2. Acute mental status changes, possible metabolic encephalopathy with sepsis. 3. Urinary tract infection. 4. Severe pulmonary hypertension. The patient cannot afford the pulmonary hypertension medications. 5. Morbid obesity. 6. Chronic kidney disease. 7. Diabetes mellitus type 2. 8. Hypothyroidism. 9. Obstructive sleep apnea. The patient is noncompliant, not using the CPAP machine. 10. Asthma without exacerbation. RECOMMENDATION: 1. I will check the blood culture, urine culture. Check the CMP and CBC. Check the chest radiograph, check the ammonia level. Continue Xopenex. Start ipratropium, budesonide and Brovana nebulizer. 2. Continue the Zosyn and Levaquin. Check the blood cultures, urine cultures, and sputum cultures. Discussed in length with the family and the RN. The critical care time is [address] Birch, once again thanks for involving me in the care of Ms. Escobar. TRANSINT:[id number] Voice Confirmation ID: [id number] DOCUMENT ID: [id number] REMINGTON SALAS MD at 0913 CC: YENNIFER BIRCH MD [id number] DICTATION DATE: 04/07/16 1038 ADMINISTRATIVE ASSISTANT DATA ENTRY: 04/07/16 1121 ADM IN [facility] [address] [place] [address]
--- NOTE | 2016-04-20 10:00 | NUR ---
REPOSITIONED FOR COMFORT AT PRESENT DENIES ANY NEEDS AT THIS TIME.FATHER AT BEDSIDE.
[2016-04-20 11:45] VITALS: BP 102/40
--- NOTE | 2016-04-20 12:00 | NUR ---
LUNCH TAKEN 100% AT PRESENT QUIET IN ROOM.
--- NOTE | 2016-04-20 13:22 | NUR ---
QUIET IN ROOM AT PRESENT N/C VOICED,
--- NOTE | 2016-04-20 14:26 | NUR ---
FATHER CONCERNED ABOUT FRANCIS CATH NOT DRAINING IN TUBE AT PRESENT .FRANCIS CHECKED SOME DRAINHAGE NOTED IN TUBING.
--- NOTE | 2016-04-20 15:00 | NUR ---
SLEEPING QUIETLY AT PRESENT DENIES ANY NEEDS AT PRESENT.
[2016-04-20 16:23] VITALS: BP 99/41
--- NOTE | 2016-04-20 17:21 | NUR ---
STATUS REMAINS UNCHG AT PRESENT.
--- NOTE | 2016-04-20 19:20 | NUR ---
PATIENT RESTING IN BED WITH EYES CLOSED. NO SIGNS OF DISTRESS NOTED. RESPIRATIONS EVEN UNLABORED. SCHEDULED MEDICATIONS GIVEN. MIDLINE IV DRESSING CHANGED. NO NEED VOICED AT THIS TIME. BED LOW. CALL LIGHT IN REACH.
[2016-04-20 20:00] VITALS: BP 116/57
[2016-04-21] VITALS: BP 118/47
[2016-04-21 04:00] VITALS: BP 122/53
--- NOTE | 2016-04-21 04:21 | NUR ---
PT IS ASLEEP ON AN AIR MATTRESS WITH EASY RESPIRATIONS AND NO DISTRESS NOTED. O2 IN PLACE AND TV ON. THE BED IS LOW, RAILS UP X'S 2 WITH THE CALL LIGHT AT HAND.
[2016-04-21 05:20] LABS: BASOPHILS 0.7 % (0.0-2.0); EOSINOPHILS 2.4 % (0-7); HEMATOCRIT 27.6 % (36.0-48.0); HEMOGLOBIN 8.8 g/dL (12-16); IMMATURE GRANULOCYTES 2.4 % (0-5); LYMPHOCYTES 8.3 % (15-50); MCH 28.9 pg (26.0-34.0); MCHC 31.9 g/dL (31.0-37.0); MCV 90.5 fL (80.0-100.0); MEAN PLATELET VOLUME 10.1 fL (7.4-10.4); MONOCYTES 8.2 % (2-11); PLATELET COUNT 394 10x3/uL (130-400); RBC 3.05 10x6/uL (4.00-5.40); RDW 17.6 % (11.5-14.5); WBC 14.3 10x3/uL (4.8-10.8)
[2016-04-21 05:36] LABS: ANION GAP 16.4 mmol/L (8-16); CALCIUM 8.9 mg/dL (8.5-10.1); CARBON DIOXIDE 21.5 mmol/L (21.0-32.0); CREATININE - SERUM 3.8 mg/dL (0.6-1.3); POTASSIUM - SERUM 4.9 mmol/L (3.5-5.1)
[2016-04-21 08:20] VITALS: BP 112/37
--- NOTE | 2016-04-21 08:37 | NUR ---
AWAKE AND ALERT. ORIENTED X3. C/O ITCHING AND PAIN TO YEASTY AREAS. LUNGS ARE CLEAR BILATERALLY, NO COUGH NOTED. SKIN IS INTACT WITH YEASTY PATCHES AND EDEMA NOTED. LEGS ARE 2-3 PLUS AND SOME WEEPING NOTED. MIDLINE TO LEFT UPPER ARM IS PATENT WITHOUT REDNESS AT INSERTION SITE. SITTING UP IN BED EATING BREAKFAST. FRANCIS PATENT WTIH CLEAR YELLOW URINE. DENIES NEEDS FOR NOW.
--- NOTE | 2016-04-21 09:30 | NUR ---
TOOK AM MEDS WITHOUT DIFFICULTY. DENIES NEEDS.
[2016-04-21 11:51] VITALS: BP 97/46
--- NOTE | 2016-04-21 14:30 | NUR ---
HAD LARGE SOFT SEMI FORMED DARK BROWN STOOL. SKIN CARE PER STAFF. REPOSITIONED IN BED FOR COMFORT.
[2016-04-21 16:26] VITALS: BP 112/41
--- NOTE | 2016-04-21 17:00 | NUR ---
FSBS 229. GIVEN 4 UNITS SUBQ PER SS. SUPPER SERVED IN ROOM. FEEDS SELF WITH SET UP.
[2016-04-21 20:00] VITALS: BP 104/46
[2016-04-22 01:02] LABS: APPEARANCE HAZY (CLEAR); BILIRUBIN NEGATIVE (NEGATIVE); COLOR YELLOW (YELLOW); GLUCOSE NEGATIVE (NEGATIVE); KETONE NEGATIVE (NEGATIVE); LEUKOCYTE ESTERASE TRACE (NEGATIVE); NITRITE NEGATIVE (NEGATIVE); PROTEIN TRACE mg/dL (NEGATIVE); UROBILINOGEN NORMAL (NORMAL)
[2016-04-22 01:06] LABS: CREATININE - URINE 144.4 mg/dL (30-125); PRO/CRE RATIO URINE 0.3 mg/g; PROTEIN - URINE 47.8 mg/dL (0.0-11.9)
[2016-04-22 01:11] LABS: BACTERIA MODERATE /hpf (NONE SEEN); EPITHELIAL CELLS 0-5 /hpf (0-5); HYALINE CAST OCC /lpf (NONE SEEN); YEAST >1+ WITH HYPHAE /hpf (NONE SEEN)
[2016-04-22 02:00] VITALS: BP 106/46
--- NOTE | 2016-04-22 03:44 | NUR ---
BARIATRIC PT SOILED. PT CLEANED AND CHANGED WITH 4 PERSON ASSIST. NO OTHER NEEDS. WILL CONTINUE TO MONITOR.
[2016-04-22 04:00] VITALS: BP 114/51
[2016-04-22 06:05] LABS: BASOPHILS 0.9 % (0.0-2.0); EOSINOPHILS 2.4 % (0-7); HEMATOCRIT 28.3 % (36.0-48.0); HEMOGLOBIN 9.2 g/dL (12-16); LYMPHOCYTES 9.1 % (15-50); MCH 29.3 pg (26.0-34.0); MCHC 32.5 g/dL (31.0-37.0); MCV 90.1 fL (80.0-100.0); MEAN PLATELET VOLUME 10.3 fL (7.4-10.4); MONOCYTES 7.7 % (2-11); NEUTROPHILS 76.9 % (40-80); PLATELET COUNT 429 10x3/uL (130-400); RBC 3.14 10x6/uL (4.00-5.40); RDW 17.7 % (11.5-14.5); WBC 16.1 10x3/uL (4.8-10.8)
[2016-04-22 06:06] LABS: CARBON DIOXIDE 19.8 mmol/L (21.0-32.0); CREATININE - SERUM 3.8 mg/dL (0.6-1.3); POTASSIUM - SERUM 4.8 mmol/L (3.5-5.1)
[2016-04-22 07:50] VITALS: BP 113/49
--- NOTE | 2016-04-22 11:26 | NUR ---
BEDPAN PLACED PER STAFF. HAD LARGE SEMIFORMED STOOL. SKIN CARE PER STAFF. REPOSITIONED FOR COMFORT.
--- NOTE | 2016-04-22 12:11 | NUR ---
FSBS 262. GIVEN 6 UNITS HUMULOG SUB Q PER SS. ALSO REQUESTED AND GIVEN ONE HYDROCODONE PO FOR C/O HEADACHE AND HIP PAIN LEVEL 5. WILL MONITOR.
[2016-04-22 12:38] VITALS: BP 110/48
--- NOTE | 2016-04-22 12:54 | NUR ---
Nutrition Follow Up: Chart reviewed. Pt eating 100% x 9 meals on Renal ADA diet. Noted diet has a 1500 kcal restriction which is inadequate to meet pt's est nutritional needs. +BM 04/20/16. No new wt. I>O. Labs noted. Meds: Lactulose, Bumex, Humalog. Will change diet to Renal ADA (remove kcal restriction). RD following.
[2016-04-22 15:59] VITALS: BP 103/48
--- NOTE | 2016-04-22 16:00 | NUR ---
GIVEN BED BATH PER STAFF.
--- NOTE | 2016-04-22 18:32 | NUR ---
FSBS 219. GIVEN 4 UNITS HUMALOG SUBQ PER SS. SUPPER SERVED IN ROOM DENIES NEEDS. NO CHANGES NOTED.
--- NOTE | 2016-04-22 19:30 | NUR ---
PT IS RESTING IN BED WITH EYES CLOSED. AWOKE EASILY TO VERBAL STIMULI. PT IS ALERT AND ORIENTED X 3. PT STATES SHE IS DEPRESSED THAT SHE DID NOT GET TO GO HOME TODAY DUE TO A ELEVATED WHITE BLOOD COUNT. LEFT ARM MIDLINE IV NOTED. FRANCIS CATH PATENT AND DRAINING TO A GRAVITY BAG. DRESSING TO RIGHT HIP CHANGED DUE TO DRAINAGE. NYSTATIN POWDER APPLIED TO ABD FOLDS. SR'S ARE UP X 3 IN BED. CALL LIGHT AND BEDSIDE TABLE ARE WITHIN EASY REACH.
[2016-04-22 20:00] VITALS: BP 103/47
--- NOTE | 2016-04-22 21:23 | NUR ---
PT IS RESTING QUIETLY IN BED WITH EYES CLOSED. RESPS ARE EVEN AND UNLABORED. NO ACUTE DISTRESS NOTED.
[2016-04-23] VITALS: BP 96/52
--- NOTE | 2016-04-23 00:03 | NUR ---
PT IS RESTING IN BED WITH EYES CLOSED. NO ACUTE DISTRESS NOTED.
--- NOTE | 2016-04-23 03:46 | NUR ---
RESTING IN BED WITH EYES CLOSED.
[2016-04-23 04:00] VITALS: BP 96/42
--- NOTE | 2016-04-23 05:49 | NUR ---
EYES CLOSED RESPIRATIONS WITH EASE AND UNLABORED.
[2016-04-23 06:44] LABS: BASOPHILS 0.9 % (0.0-2.0); EOSINOPHILS 3.1 % (0-7); HEMATOCRIT 28.2 % (36.0-48.0); HEMOGLOBIN 9.2 g/dL (12-16); LYMPHOCYTES 8.1 % (15-50); MCH 29.6 pg (26.0-34.0); MCHC 32.6 g/dL (31.0-37.0); MCV 90.7 fL (80.0-100.0); MEAN PLATELET VOLUME 9.8 fL (7.4-10.4); MONOCYTES 7.8 % (2-11); NEUTROPHILS 77.1 % (40-80); PLATELET COUNT 446 10x3/uL (130-400); RBC 3.11 10x6/uL (4.00-5.40); RDW 18.2 % (11.5-14.5); WBC 16.9 10x3/uL (4.8-10.8)
[2016-04-23 06:58] LABS: ANION GAP 16.6 mmol/L (8-16); CALCIUM 8.7 mg/dL (8.5-10.1); CARBON DIOXIDE 19.3 mmol/L (21.0-32.0); CREATININE - SERUM 3.5 mg/dL (0.6-1.3); POTASSIUM - SERUM 4.9 mmol/L (3.5-5.1)
--- NOTE | 2016-04-23 07:15 | NUR ---
REPORT RCEIVED FROM STRAIGHTENER NURSE. CALL LIGHT IN REACH.
[2016-04-23 08:33] VITALS: BP 116/47
--- NOTE | 2016-04-23 09:59 | NUR ---
ASSESSMENT COMPLETED. NORCO PO WITH AM MEDS ADMINISTERED. FATHER AT BEDSIDE. CALL LIGHT IN REACH.
--- NOTE | 2016-04-23 10:35 | NUR ---
FATHER STATES THAT PATIENT IS DISORIENTED BUT SHE IS ALERT AND ORIENTED. SHE TOOK 20-30 SECONDS TO RESPOND TO HIS QUESTION SO IT CONCERNED HIM.
--- NOTE | 2016-04-23 12:53 | NUR ---
NOON MEDS ADMINISTERED. FSBS 194 SO HUMALOG 2 UNITS SUBQ TO LEFT ARM. SALINE NASAL SPRAY PER ORDER. FATHER INSIST ON PATIENT BEING DISORIENTED BUT SHE IS NOT AT THIS TIME.
[2016-04-23 13:05] VITALS: BP 114/46
--- NOTE | 2016-04-23 14:20 | NUR ---
RESTING WITH EYES CLOSED. RESP EVEN AND UNLABORED. CALL LIGHT IN REACH.
[2016-04-23 15:47] VITALS: BP 119/40
--- NOTE | 2016-04-23 16:16 | NUR ---
EVENING MEDS ADMINISTERED. FSBS 200. HUMALOG 2 UNITS SUBQ TO RIGHT ARM. NORCO PO. WINDOW UNIT AIR CONDITIONING MECHANIC IN ROOM GIVING BED BATH.
--- NOTE | 2016-04-23 16:20 | NUR ---
FATHER AT DESK TALKING TO NURSE STATES PT SEEMS MORE CONFUSED THIS EVEING STATES SHE,S REPEATING SELF LIKE WHEN SHE WAS ADMITTED.
--- NOTE | 2016-04-23 16:36 | NUR ---
SPOKE WITH DR. GO ABOUT PATIENT'S CONFUSION. NEW ORDERS RECEIVED FRO A CT OF THE CHEST AND AN AMMONIA LEVEL.
--- NOTE | 2016-04-23 17:35 | NUR ---
TO CT VIA BED.
--- NOTE | 2016-04-23 18:19 | NUR ---
BACK IN THE ROOM. EXPLAINED TO FATHER AND PATIENT THAT SHE NEEDS TO START BACK TAKING HER LACTULOSE BECAUSE OF HER HIGH AMMONIA. NO OTHER CHANGES IN INITIAL ASSESSMENT. CALL LIGHT IN REACH. WILL CONTINUE WITH PLAN OF CARE.
--- NOTE | 2016-04-23 20:34 | NUR ---
PT RESTING IN BED WATCHING TV. HS MEDS TAKEN. PRN NORCO REQ AND REC'D FOR HEADACHE 09/03. PT DENIES FURTHUR NEEDS AT THIS TIME. BED LOW. CL IN REACH.
--- NOTE | 2016-04-23 21:00 | NUR ---
PT BEGAN VOMITTING RIGHT AFTER TAKING MEDS. PT STATED AFTER THAT SHE FELT BETTER AND DENIED NEEDS. WCTM. BED LOW. CL INR EACH.
[2016-04-23 22:11] VITALS: BP 119/44
--- NOTE | 2016-04-23 23:40 | NUR ---
PT HAD INCONTINENT BM. PT BED LINENS CHANGED AND BUTT PASTE APPLIED AFTER CLEANSING. NYSTATIN ALSO APPLIED AT THIS TIME. PT DENIES NEEDS. WCTM. BED LOW. CL INR EACH.
--- NOTE | 2016-04-24 01:58 | NUR ---
PT FINISHED RESP TX. PT DENIES NEEDS AT THIS TIME. BED LOW. C ADA REACH
--- NOTE | 2016-04-24 04:28 | NUR ---
PT REFUSED CHRONULAC. REMINDED PT THAT HER DOCTOR INSISTED THAT SHE TAKE THIS MEDICATION. PT STATED "I JUST CAN'T DO IT. I'M NOT GOING TO DRINK IT."
[2016-04-24 06:15] LABS: BASOPHILS 0.8 % (0.0-2.0); EOSINOPHILS 1.4 % (0-7); HEMATOCRIT 29.7 % (36.0-48.0); HEMOGLOBIN 9.5 g/dL (12-16); IMMATURE GRANULOCYTES 2.9 % (0-5); LYMPHOCYTES 6.6 % (15-50); MCH 29.5 pg (26.0-34.0); MCV 92.2 fL (80.0-100.0); MEAN PLATELET VOLUME 10.4 fL (7.4-10.4); NEUTROPHILS 81.3 % (40-80); PLATELET COUNT 440 10x3/uL (130-400); RBC 3.22 10x6/uL (4.00-5.40); RDW 18.9 % (11.5-14.5); WBC 19.8 10x3/uL (4.8-10.8)
--- NOTE | 2016-04-24 06:45 | NUR ---
PT TOOK AM MEDS WITH EXCEPTION OF NYSTATIN ORAL WHICH SHE REFUSED. PT FAMILY AT BEDSIDE, DENIES NEEDS AT THIS TIME.
[2016-04-24 06:48] LABS: CARBON DIOXIDE 17.8 mmol/L (21.0-32.0); CREATININE - SERUM 3.5 mg/dL (0.6-1.3); POTASSIUM - SERUM 4.8 mmol/L (3.5-5.1)
[2016-04-24 06:49] LABS: ALBUMIN 1.7 g/dL (3.4-5.0); BILIRUBIN - TOTAL 0.9 mg/dL (0.2-1.3); CALCIUM 8.8 mg/dL (8.5-10.1)
--- NOTE | 2016-04-24 07:40 | NUR ---
REPORT RECEIVED. CALL LIGHT IN REACH.
--- NOTE | 2016-04-24 07:53 | NUR ---
PATIENT IN BED WITH NO COMPLAINTS AT THIS TIME. IV INTACT. FAMILY AT BEDSIDE. CALL LIGHT WITHIN REACH.
[2016-04-24 08:42] VITALS: BP 105/45
--- NOTE | 2016-04-24 09:33 | NUR ---
ASSESSMENT COMPLETED. FATHER IN ROOM. CALL LIGHT IN REACH. WILL CONTINUE WITH PLAN OF CARE. EYAD ACOSTA
--- NOTE | 2016-04-24 09:50 | NUR ---
ASSESSMENT COMPLETED. FATHER IN ROOM. CALL LIGHT IN REACH. WILL CONTINUE WITH PLAN OF CARE.
--- NOTE | 2016-04-24 11:48 | NUR ---
AM MEDS ADMINISTERED PER SHAKA MONACO. CALL LIGHT IN REACH.
[2016-04-24 11:58] VITALS: BP 131/69
--- NOTE | 2016-04-24 13:38 | NUR ---
URINE SAMPLE COLLECTED FROM FRANCIS CATH USING ASEPTIC TECHNIQUE. SENT TO LAB.
[2016-04-24 15:11] VITALS: BP 89/38
--- NOTE | 2016-04-24 15:59 | NUR ---
FSBS 295. HUMALOG 6 IUNITS SUBQ TO LEFT ARM. NORCO PO WITH OTHER AFTERNOON AND EVENING MEDS. CALL LIGHT IN REACH.
--- NOTE | 2016-04-24 17:20 | NUR ---
EATING SUPPER AT THIS TIME. NO NEEDS VOICED AT THIS TIME. CALL LIGHT IN REACH.
--- NOTE | 2016-04-24 18:22 | NUR ---
NO CHANGES IN INITIAL ASSESSMENT. CALL LIGHT IN REACH. WILL CONTINUE WITH PLAN OF CARE.
[2016-04-24 19:00] VITALS: BP 107/47
--- NOTE | 2016-04-24 19:45 | NUR ---
PT. IN BED WITH HOB UP FOR COMFORT WITH EYES CLOSED AND RESP. EVEN. PT. EASILY AWAKENS WHEN I GO TO WAKE HER UP. ASSESSMENT COMPLETED. PT. REPEATS MOST ANSWERS 3 AND 4 TIMES WITHOUT BEING ASKED TO REPEAT THE ANSWERS. PT. IS ALERT BUT THERE IS A COGNITIVE DEFICITE OF SOME TYPE. PT. THOUGHT IT WAS 2006, BUT KNEW WHO THE SENIOR HEALTH PHYSICS TECHNICIAN WAS. PT. THOUGHT SHE WAS AT THE SENIOR LIVING WHERE SHE RESIDES AND I REORIENTED HER TO [facility]. PT. COULDN'T ANSWER QUESTION TO WHY SHE WAS IN THE HOSPITAL AND DIDN'T EVEN TRY TO ANSWER. WILL CONTINUE TO MONITOR. CALL LIGHT WITHIN REACH.
--- NOTE | 2016-04-24 23:28 | NUR ---
PT. IN BED WITH HOB UP FOR COMFORT WITH EYES CLOSED AND RESP. EVEN. CALL LIGHT WITHIN REACH. TITO TO BSD WITHOUT ANY PROBLEMS.
[2016-04-25 04:00] VITALS: BP 102/39
[2016-04-25 04:57] LABS: HEMATOCRIT 28.2 % (36.0-48.0); HEMOGLOBIN 9.4 g/dL (12-16); LYMPHOCYTES 7.6 % (15-50); MCH 30.9 pg (26.0-34.0); MCHC 33.3 g/dL (31.0-37.0); MCV 92.8 fL (80.0-100.0); MEAN PLATELET VOLUME 9.6 fL (7.4-10.4); NEUTROPHILS 80.4 % (40-80); PLATELET COUNT 459 10x3/uL (130-400); RBC 3.04 10x6/uL (4.00-5.40); RDW 20.4 % (11.5-14.5); WBC 19.3 10x3/uL (4.8-10.8)
[2016-04-25 05:24] LABS: ALBUMIN 1.7 g/dL (3.4-5.0); ANION GAP 16.2 mmol/L (8-16); BILIRUBIN - TOTAL 0.73 mg/dL (0.2-1.3); CALCIUM 8.4 mg/dL (8.5-10.1); CARBON DIOXIDE 20.7 mmol/L (21.0-32.0); CREATININE - SERUM 3.5 mg/dL (0.6-1.3); MAGNESIUM - SERUM 2.4 mg/dL (1.8-2.4); PHOSPHOROUS 5.8 mg/dL (2.5-4.9); POTASSIUM - SERUM 4.9 mmol/L (3.5-5.1)
--- NOTE | 2016-04-25 07:30 | NUR ---
AWAKE AND ALERT. ORIENTED X3. NO C/O AT THIS TIME. LUNGS ARE CLEAR BILATERALLY, OCCASSIONAL DRY COUGH NOTED. SKIN HAS MULTIPLE AREAS OF REDNESS WEEPING AND OPEN WOUNDS. PATIENT IS ON BIG BOY BED. LEFT UPPER ARM MIDLINE IS PATENT WITHOUT REDNESS AT INSERTION SITE. FRANCIS IS PATENT WITH CLEAR YELLOW URINE. FATHER AT BEDSIDE. DENIES NEEDS.
[2016-04-25 07:31] LABS: T4 THYROXIN - FREE 1.06 ng/dL (0.76-1.46); THYROID STIMULATING HORMONE 12.25 uIU/mL (0.36-3.74)
[2016-04-25 08:16] VITALS: BP 108/46
--- NOTE | 2016-04-25 09:00 | NUR ---
ATE ALL OF BREAKFAST. HAS SLIGHT NOSE BLEED AT THIS TIME. WILL MONITOR.
[2016-04-25 12:09] VITALS: BP 96/42
--- NOTE | 2016-04-25 14:45 | NUR ---
GIVEN BED BATH AND LINENS CHANGED. DRESSING TO RIGHT THIGH CHANGED WELL. TOLERATED WITHOUT C/O PAIN OR DISCOMFORT.
[2016-04-25 15:37] VITALS: BP 102/44
--- NOTE | 2016-04-25 17:00 | NUR ---
FSBS 333. GIVEN 8 UNITS HUMALOG SUBQ PER SS. SUPPER TRAY SERVED IN ROOM.
--- NOTE | 2016-04-25 18:36 | NUR ---
ATE MOST OF SUPPER. NO C/O AT THIS TIME. DENIES NEEDS.NO CHANGES NOTED.
[2016-04-25 19:35] LABS: CREATININE - URINE 162.7 mg/dL (30-125); PROTEIN - URINE 60.4 mg/dL (0.0-11.9)
[2016-04-25 20:14] LABS: APPEARANCE CLOUDY (CLEAR); COLOR YELLOW (YELLOW); SPECIFIC GRAVITY 1.015 (1.005-1.020)
[2016-04-25 20:15] LABS: BILIRUBIN NEGATIVE (NEGATIVE); GLUCOSE NEGATIVE (NEGATIVE); KETONE NEGATIVE (NEGATIVE); LEUKOCYTE ESTERASE 1+ (NEGATIVE); NITRITE NEGATIVE (NEGATIVE); PROTEIN NEGATIVE (NEGATIVE); UROBILINOGEN NORMAL (NORMAL)
[2016-04-25 20:16] LABS: BACTERIA MANY /hpf (NONE SEEN); WHITE CELLS - URINE >50 /hpf (0-5); YEAST >1+ WITH HYPHAE /hpf (NONE SEEN)
[2016-04-25 23:50] VITALS: BP 149/56
[2016-04-26 00:23] VITALS: BP 94/38
[2016-04-26 05:12] LABS: BASOPHILS 0.7 % (0.0-2.0); EOSINOPHILS 4.3 % (0-7); HEMATOCRIT 29.9 % (36.0-48.0); HEMOGLOBIN 9.5 g/dL (12-16); IMMATURE GRANULOCYTES 3.2 % (0-5); LYMPHOCYTES 9.2 % (15-50); MCHC 31.8 g/dL (31.0-37.0); MCV 91.2 fL (80.0-100.0); MEAN PLATELET VOLUME 10.1 fL (7.4-10.4); MONOCYTES 8.8 % (2-11); NEUTROPHILS 73.8 % (40-80); PLATELET COUNT 428 10x3/uL (130-400); RBC 3.28 10x6/uL (4.00-5.40); RDW 18.6 % (11.5-14.5); WBC 18.9 10x3/uL (4.8-10.8)
[2016-04-26 05:41] LABS: ALBUMIN 1.6 g/dL (3.4-5.0); ANION GAP 16.7 mmol/L (8-16); BILIRUBIN - TOTAL 0.8 mg/dL (0.2-1.3); CALCIUM 8.5 mg/dL (8.5-10.1); CARBON DIOXIDE 20.1 mmol/L (21.0-32.0); CREATININE - SERUM 3.6 mg/dL (0.6-1.3); MAGNESIUM - SERUM 2.6 mg/dL (1.8-2.4); POTASSIUM - SERUM 4.8 mmol/L (3.5-5.1); PROTEIN - SERUM 6.8 g/dL (6.4-8.2)
--- NOTE | 2016-04-26 07:30 | NUR ---
AWAKE AND ALERT. ORIENTED X3. NO C/O AT THIS TIME. LUNGS ARE CLEAR BILATERALLLY, OCCASSIONAL DRY COUGH NOTED. SKIN HAS MULTIPLE AREAS OF CONCERN, SOME OPEN STAGE 2 TO BUTTOCKS AND BEHIND KNEES, WHICH ARE ALL SUPERFICIAL. WHAT APPEARS TO BE YEAST IN DEBRA AREA AND ON BUTTOCKS. FRANCIS PATENT WITH CLEAR YELLOW URINE. MIDLINE TO LEFT UPPER ARM PATENT WITHOUT REDNESS AT INSERTION SITE. DENIES NEEDS. FAMILY AT BEDSIDE.
[2016-04-26 08:09] VITALS: BP 102/59
--- NOTE | 2016-04-26 10:00 | NUR ---
TOOK ALL OF AM MEDS WITHOUT DIFFICULTY. DENIES NEEDS.
[2016-04-26 11:44] VITALS: BP 93/40
--- NOTE | 2016-04-26 12:00 | NUR ---
FSBS 286. GIVEN 8 UNITS HUMALOG SUB Q PER SS.
--- NOTE | 2016-04-26 12:00 | NUR ---
FSBS 286. GIVEN 8 UNITS HUMALOG SUBQ PER SS.
--- NOTE | 2016-04-26 13:50 | NUR ---
NUTRITION MONITORING & EVAL CHART REVIEWED. PT TOLERATING RENAL ADA DIET. GOOD PO INTAKE MOST MEALS. RD FOLLOWING
[2016-04-26 15:55] VITALS: BP 101/58
--- NOTE | 2016-04-26 19:50 | NUR ---
PATIENT RESTING IN SEMI-FOWLERS POSITION. PATIENT REQUESTED A PAIN PILL. PATIENT'S BED IN LOWEST POSITION AND CALL LIGHT WITHIN REACH.
[2016-04-26 21:14] VITALS: BP 110/43
[2016-04-27 05:26] LABS: BASOPHILS 0.4 % (0.0-2.0); EOSINOPHILS 0.6 % (0-7); HEMATOCRIT 28.7 % (36.0-48.0); HEMOGLOBIN 9.4 g/dL (12-16); IMMATURE GRANULOCYTES 2.9 % (0-5); LYMPHOCYTES 5.8 % (15-50); MCH 29.8 pg (26.0-34.0); MCHC 32.8 g/dL (31.0-37.0); MCV 91.1 fL (80.0-100.0); MEAN PLATELET VOLUME 9.6 fL (7.4-10.4); MONOCYTES 3.5 % (2-11); NEUTROPHILS 86.8 % (40-80); PLATELET COUNT 370 10x3/uL (130-400); RBC 3.15 10x6/uL (4.00-5.40); WBC 16.1 10x3/uL (4.8-10.8)
[2016-04-27 05:38] LABS: ANION GAP 15.6 mmol/L (8-16); CALCIUM 8.3 mg/dL (8.5-10.1); CARBON DIOXIDE 20.7 mmol/L (21.0-32.0); CREATININE - SERUM 3.6 mg/dL (0.6-1.3); POTASSIUM - SERUM 5.3 mmol/L (3.5-5.1)
--- NOTE | 2016-04-27 07:00 | NUR ---
REPORT RECIEVED ASSUMED CARE. PATIENT IN BED WITH IV INTACT. NO OCMPLAINTS AT THIS TIME. CALL LIGHT WITHIN REACH.
[2016-04-27 07:33] LABS: INR 1.36 (0.85-1.17); PROTIME 16.7 SECONDS (11.6-15.0)
[2016-04-27 07:34] LABS: APTT 38.8 SECONDS (22.8-39.4)
[2016-04-27 08:36] VITALS: BP 108/47
--- NOTE | 2016-04-27 10:45 | NUR ---
PATIENT CHANGED AND CLEANED AT THIS TIME. DRESSING TO ABDOMEN CHANGED. BOUDREUXS PLACED ON SORES AND SKIN TEARS WELL GROIN AND BUTTOCKS. IV INTACT. NO COMPLAINTS. FRANCIS INTACT. CALL LIGHT WITHIN REACH.
--- NOTE | 2016-04-27 12:30 | NUR ---
PATIENT SITTING UP IN BED EATING AT THIS TIME. NO COMPLAINTS AT THIS TIME. CALL LIGHT WITHIN REACH.
[2016-04-27 13:48] VITALS: BP 110/50
[2016-04-27 16:01] VITALS: BP 92/42
--- NOTE | 2016-04-27 18:43 | NUR ---
PATIENT IN BED WITH NO COMPLAINTS AT THIS TIME. IV INTACT. CHANGED AND CLEANED AT THIS TIME. BOUDREUXS PLACED TO BUTTOCKS AND BACK OF LEGS. FAMILY AT BEDSIDE. 24 HOUR URINE COMPLETE. CALL LIGHT WITHIN REACH.
[2016-04-27 19:43] LABS: CREATININE - URINE 110.4 mg/dL (30-125)
[2016-04-27 19:44] LABS: CREATININE - URINE 109.2 mg/dL (30-125)
[2016-04-27 19:50] LABS: CREATININE - SERUM 3.6 mg/dL (0.6-1.3)
[2016-04-27 20:00] VITALS: BP 113/50
--- NOTE | 2016-04-27 21:50 | NUR ---
PT REQUESTED PAIN MED AND WHEN WENT TO ADMIN PAIN MED ORDERED PT SLEEPING AND NORCO WASTED IN SHARPS CONTANIER NO PAIN MEDS ADMIN
[2016-04-28] VITALS: BP 116/51
--- NOTE | 2016-04-28 00:48 | NUR ---
PT FIRST PRESS OPERATOR LIGHT AND REQUESTING PAIN MEDS PULLED PAIN MED AND ADMIN ORDERED CALL LIGHT IN REACH SRX2 BED LOW AND LOCKED RESPERATIONS EVEN AND UNLABORED
[2016-04-28 04:00] VITALS: BP 113/49
--- NOTE | 2016-04-28 05:17 | NUR ---
PT LAYING IN BED NO DISTRESS OBSERVED CALL LIGHT INR EACHS RX2 BED LOW AN DLOCKED IVP INFUSING FLUIDS ORDERED AND PT AAOX4 ICE CHIPS PROVIDED TO PT PER PT REQUEST. RESPERATIONS EVEN AND UNLABORED ON ROOM AIR NO NEEDS VOICED OR OBSERVED BY PT AT THIS TIME WILL MONITOR
[2016-04-28 05:34] LABS: BASOPHILS 0.1 % (0.0-2.0); EOSINOPHILS 0.3 % (0-7); HEMATOCRIT 29.1 % (36.0-48.0); HEMOGLOBIN 9.3 g/dL (12-16); IMMATURE GRANULOCYTES 2.2 % (0-5); LYMPHOCYTES 7.4 % (15-50); MCH 28.9 pg (26.0-34.0); MCV 90.4 fL (80.0-100.0); MEAN PLATELET VOLUME 9.8 fL (7.4-10.4); MONOCYTES 5.3 % (2-11); NEUTROPHILS 84.7 % (40-80); PLATELET COUNT 362 10x3/uL (130-400); RBC 3.22 10x6/uL (4.00-5.40); RDW 19.2 % (11.5-14.5); WBC 13.8 10x3/uL (4.8-10.8)
[2016-04-28 05:52] LABS: INR 1.35 (0.85-1.17); PROTIME 16.6 SECONDS (11.6-15.0)
[2016-04-28 06:14] LABS: ANION GAP 17.2 mmol/L (8-16); CALCIUM 8.5 mg/dL (8.5-10.1); CARBON DIOXIDE 21.9 mmol/L (21.0-32.0); CREATININE - SERUM 3.5 mg/dL (0.6-1.3); POTASSIUM - SERUM 5.1 mmol/L (3.5-5.1)
--- NOTE | 2016-04-28 07:00 | NUR ---
REPORT RECIEVED ASSUMED CARE. PATIENT IN BED WITH IV INTACT. NO COMPLAINTS. CALL LIGHT WITHIN REACH.
[2016-04-28 07:51] VITALS: BP 115/42
[2016-04-28 12:19] VITALS: BP 121/52
--- NOTE | 2016-04-28 12:40 | NUR ---
PATIENT TRANSFERRED TO NEW BED AND CLEANED UP AT THIS TIME. DRESSING TO ABDOMEN CHANGED. BOUDREUXS PUT ON REDDEND AREAS AND SORES. NYSTATIN POWDER AND CREAM APPLIED TO GROIN AND BUTTOCKS. NO COMPLAINTS. FRANCIS INTACT. CALL LIGHT WITHIN REACH.
--- NOTE | 2016-04-28 13:21 | NUR ---
CM REASSESSMENT NOTE: CM SPOKE WITH FAMILY AND PATIENT REGARDING A REFERRAL TO [facility] AND THEY AGREED FOR REFERRAL. [place] WITH [facility] CAME TO HOSPITAL AND SPOKE WITH FAMILY REGARDING [facility] PLACEMENT. [facility] HAS PAPERWORK AND WILL LET CM KNOW BARRY IF PATIENT WILL BE ACCEPTED. DR. TORRE HAD TALKED WITH PATIENT YESTERDAY REGARDING DIALYSIS AND SHE HAS DECIDED TO HAVE DIALYSIS. DR. TORRE IS TALKING WITH PATIENT LATER TODAY REGARDING DIALYSIS. FAMILY WAS WORRIED ABOUT INSURANCE AND A CALL WAS PLACED TO [employer] [employer]) AND SHE STATED DIALYSIS IS COVERED AND NOT TO WORRY ABOUT MEDICAID OR MEDICARE AT THIS TIME. [facility] STATED SHE OR [facility] WOULD BE IN TOUCH WITH FAMILY. CM SPOKE WITH FAMILY AND FATHER STATED HE HAD THERE NUMBERS AND WOULD CALL THEM IF NEEDED. CM WILL CONTINUE TO FOLLOW PATIENT WITH D/C NEEDS AND PLANS
[2016-04-28 15:44] VITALS: BP 120/60
--- NOTE | 2016-04-28 19:30 | NUR ---
PT SITTING UP IN BED WATCHING TV, BREATHING EVEN AND UNLABORED ON 2L NC. AAOX4, BED IN LOWEST POSITION, CALL LIGHT IN REACH, DENIES ANY NEEDS, ASSESSMENT PER FLOWSHEET.
[2016-04-28 21:00] VITALS: BP 123/46
[2016-04-29 00:30] VITALS: BP 130/52
--- NOTE | 2016-04-29 00:55 | NUR ---
PT IS ASLEEP WITH THE TV ON AND THE LIGHTS DIM. NO DISTRESS NOTED, RESPIRATIONS EVEN AND UNLABORED WITH O2 IN PLACE. THE BED IS LOW, RAILS UP X'S 2 WITH THE CALL LIGHT AT HAND.
--- NOTE | 2016-04-29 04:03 | NUR ---
TURNING PT TO CLEAN AFTER BM. PT CRYING AND C/O PAIN. REPOSITIONED PT FOR COMFORT, BUT PT DENIES RELIEF. OFFERED PT PAIN MEDS, BUT PT REFUSED.
[2016-04-29 05:00] VITALS: BP 125/67
[2016-04-29 05:17] LABS: BASOPHILS 0.1 % (0.0-2.0); EOSINOPHILS 0.4 % (0-7); HEMATOCRIT 31.3 % (36.0-48.0); HEMOGLOBIN 10.1 g/dL (12-16); IMMATURE GRANULOCYTES 1.8 % (0-5); LYMPHOCYTES 8.9 % (15-50); MCH 29.4 pg (26.0-34.0); MCHC 32.3 g/dL (31.0-37.0); MCV 91.3 fL (80.0-100.0); MONOCYTES 7.1 % (2-11); NEUTROPHILS 81.7 % (40-80); PLATELET COUNT 357 10x3/uL (130-400); RBC 3.43 10x6/uL (4.00-5.40); WBC 14.3 10x3/uL (4.8-10.8)
[2016-04-29 05:44] LABS: ANION GAP 18.1 mmol/L (8-16); CALCIUM 8.2 mg/dL (8.5-10.1); CARBON DIOXIDE 23.1 mmol/L (21.0-32.0); CREATININE - SERUM 3.3 mg/dL (0.6-1.3); POTASSIUM - SERUM 5.2 mmol/L (3.5-5.1)
--- NOTE | 2016-04-29 07:00 | NUR ---
REPORT RECIEVED ASSUMED CARE. PATIENT IN BED WITH IV INTACT. NO COMPLAINTS OR SIGNS OF DISTRESS. CALL LIGHT WITHIN REACH.
[2016-04-29 07:51] VITALS: BP 135/52
--- NOTE | 2016-04-29 09:50 | NUR ---
PATIENT CHANGED AND CLEANED AT THIS TIME. DRESSING TO ABDOMEN CHANGED. BOUDREUXS, NYSTATIN CREAM, AND POWDER APPLIED ORDERED TO OPEN AREAS AND WOUNDS. BOUDREUXS AND CREAM APPLIED TO SKIN FOLDS WELL. PATIENT HAS NO COMPLAINTS. CALL LIGHT WITHIN REACH.
--- NOTE | 2016-04-29 12:28 | NUR ---
NUTRITION MONITORING & EVAL CHART REVIEWED. FAMILY AT BEDSIDE. PT TOLERATING RENAL DIET. 100% INTAKE MOST MEALS. RD FOLLOWING
[2016-04-29 12:29] VITALS: BP 136/62
--- NOTE | 2016-04-29 13:45 | NUR ---
PATIENT IN BED EYES CLOSED WITH NO COMPLAINTS OR SIGNS OF DISTRESS. CALL LIGHT WITHIN REACH.
[2016-04-29 16:37] VITALS: BP 121/55
--- NOTE | 2016-04-29 18:45 | NUR ---
PATIENT IN BED WITH EYES CLOSED RESTING QUIETLY AT THIS TIME. IV INTACT. NO COMPLAINTS. CALL LIGHT WITHIN REACH.
[2016-04-29 19:00] VITALS: BP 115/52
--- NOTE | 2016-04-30 03:51 | NUR ---
ASSESSED AT THE BEGINNING OF THE SHIFT. PT IS ALERT AND ORIENTED, ABLE TO VERBALIZE NEEDS. SHE IS ON A SPECIAL BED AND HAS A FRANCIS CATH IN PLACE FOR KEEPING HER DRYER. THERE IS WEEPING EDEMA ALL OVER AND SHE NEEDS FREQUENT CLEANING UP. SHE IS WEARING O2 AT 2 LITERS AND IS GETTING HER BLOOD SUGARS CHECKED AC AND HS. THE BED IS LOW, RAILS UP X'S 2 WITH THE CALL LIGHT AT AHND.
[2016-04-30 04:00] VITALS: BP 102/52
--- NOTE | 2016-04-30 07:00 | NUR ---
PT REC'D FROM SHAKA DAVISON. RESTING IN BED WITH FAMILY IN ROOM. AAOX4. NO CURRENT COMPLAINTS OF PAIN. DRESSING TO R SIDE SATURATED WITH SEROUS FLUID. FRANCIS CATHETER DRAINING CLEAR YELLOW URINE TO GRAVITY. DISCUSSED WITH PT POSSIBLE CHANGE OF FRANCIS TODAY. PT STATES SHE IS FINE WITH THAT LONG I AM THE ONE WHO DOES IT. REDDNESS AND SWELLING NOTED TO MARQUISE LE. NON PITTING. BED LOW, CALL LIGHT IN REACH, DENIES NEEDS.
[2016-04-30 08:54] LABS: BASOPHILS 0.1 % (0.0-2.0); EOSINOPHILS 0.3 % (0-7); HEMATOCRIT 32.8 % (36.0-48.0); HEMOGLOBIN 10.5 g/dL (12-16); IMMATURE GRANULOCYTES 2.1 % (0-5); LYMPHOCYTES 11.1 % (15-50); MCH 28.8 pg (26.0-34.0); MCV 90.1 fL (80.0-100.0); MEAN PLATELET VOLUME 10.4 fL (7.4-10.4); MONOCYTES 8.6 % (2-11); NEUTROPHILS 77.8 % (40-80); PLATELET COUNT 338 10x3/uL (130-400); RBC 3.64 10x6/uL (4.00-5.40); RDW 18.8 % (11.5-14.5)
[2016-04-30 08:55] VITALS: BP 108/63
[2016-04-30 09:11] LABS: ANION GAP 19.3 mmol/L (8-16); BILIRUBIN - TOTAL 0.65 mg/dL (0.2-1.3); CALCIUM 8.3 mg/dL (8.5-10.1); CARBON DIOXIDE 22.8 mmol/L (21.0-32.0); POTASSIUM - SERUM 5.1 mmol/L (3.5-5.1); PROTEIN - SERUM 6.8 g/dL (6.4-8.2)
--- NOTE | 2016-04-30 11:01 | NUR ---
ASSISTED PT OFF OF BED WHITEHEAD. WHEN TURNED PT HAD CUTS AROUND WHERE BED WHITEHEAD HAD BEEN. PT HAS STAGE 2 TO R HIP, COCCYX, AND TO L HIP. CUTS WERE UNDER BUTTOCK NEAR DEBRA AREA. DEBRA AND FRANCIS CARE PROVIDED. PT HAD LARGE WATERY BM. REPOSITIONED TO BACK. BED LOW, CALL LIGHT IN REACH, WILL CPOC.
[2016-04-30 13:04] VITALS: BP 123/56
--- NOTE | 2016-04-30 15:16 | NUR ---
FAMILY AT BEDSIDE.PT WITHOUT DISTRESS.CALL LIGHT IN REACH
[2016-04-30 16:03] VITALS: BP 119/61
--- NOTE | 2016-04-30 16:56 | NUR ---
FRANCIS CATHETER CHANGED PER DR. STONE REQUEST. 18 FR FRANCIS CATHETER REMOVED WITH TIP INTACT. 10CC OF FLUID DRAINED FROM BULB. DEBRA CARE PROVIDED. 16 FR FRANCIS INSERTED USING STERILE TECHNIQUE. IMMEDIATE RETURN OF YELLOW URINE WITH SOME BLOOD CLOTS NOTED. PT TOLERATED WELL. X4 ASSIST FROM STAFF. PT REPOSITIONED TO SITTING UP IN BED. BED LOW, CALL LIGHT IN REACH, WILL CPOC.
--- NOTE | 2016-04-30 18:29 | NUR ---
DR. PATEL PAGED REGARDING FSBS OF 498. 20 UNITS OF HUMALOG GIVEN PER SS.
--- NOTE | 2016-04-30 18:49 | NUR ---
DR. PATEL CALLED BACK AND STATED, "CHANGE TO HIGH RESISTANCE SLIDING SCALE AND RECHECK HER AT 2100."
[2016-04-30 20:38] VITALS: BP 130/55
[2016-05-01] VITALS: BP 117/44
[2016-05-01 04:00] VITALS: BP 100/49
[2016-05-01 06:09] LABS: ALBUMIN 1.9 g/dL (3.4-5.0); BILIRUBIN - TOTAL 0.7 mg/dL (0.2-1.3); CALCIUM 8.5 mg/dL (8.5-10.1); CREATININE - SERUM 2.6 mg/dL (0.6-1.3); PROTEIN - SERUM 7.3 g/dL (6.4-8.2)
[2016-05-01 06:10] LABS: BASOPHILS 0.1 % (0.0-2.0); EOSINOPHILS 0.4 % (0-7); HEMATOCRIT 31.6 % (36.0-48.0); HEMOGLOBIN 10.1 g/dL (12-16); IMMATURE GRANULOCYTES 1.9 % (0-5); LYMPHOCYTES 10.8 % (15-50); MCH 29.2 pg (26.0-34.0); MCV 91.3 fL (80.0-100.0); MONOCYTES 10.1 % (2-11); NEUTROPHILS 76.7 % (40-80); PLATELET COUNT 293 10x3/uL (130-400); RBC 3.46 10x6/uL (4.00-5.40); RDW 18.8 % (11.5-14.5); WBC 13.9 10x3/uL (4.8-10.8)
[2016-05-01 06:33] LABS: APPEARANCE CLOUDY (CLEAR); BILIRUBIN NEGATIVE (NEGATIVE); COLOR YELLOW (YELLOW); GLUCOSE NEGATIVE (NEGATIVE); KETONE NEGATIVE (NEGATIVE); LEUKOCYTE ESTERASE 1+ (NEGATIVE); NITRITE NEGATIVE (NEGATIVE); PROTEIN TRACE mg/dL (NEGATIVE); SPECIFIC GRAVITY 1.015 (1.005-1.020); UROBILINOGEN NORMAL (NORMAL)
[2016-05-01 06:34] LABS: BACTERIA MODERATE /hpf (NONE SEEN); EPITHELIAL CELLS 0-5 /hpf (0-5); MUCUS >1+ /lpf (NONE SEEN); RED CELLS - URINE 0-5 /hpf (0-5)
--- NOTE | 2016-05-01 07:00 | NUR ---
PT REC'D FROM SHAKA DAVISON. RESTING IN BED WITH EYES CLOSED. AAOX4. RATING CURRENT PAIN IN LEGS 09/03. DRESSING TO L UPPER ARM MIDLINE CDI. PARTIAL BED BATH AND LINEN CHANGED DONE DUE TO WEEPING FROM WOUNDS TO R ABD AND BUTTOCK. BARRIER CREAM APPLIED BETWEEN LEGS AND TO BUTTOCK. BED LOW, CALL LIGHT IN REACH, WILL CPOC.
--- NOTE | 2016-05-01 07:44 | NUR ---
PATIENT IN HIGH MOREJON POSITION RESTING WITH EYES CLOSED. RESPIRATIONS EVEN AND UNLABORED. SIDE RAILS UP X3. BED IN LOW POSITION. CALL LIGHT IN REACH.
[2016-05-01 09:00] VITALS: BP 117/52
--- NOTE | 2016-05-01 10:00 | NUR ---
MORNING MEDS PASSED AT THIS TIME. PT WAS ASLEEP AND WHEN WOKEN UP BECAME VERY ANXIOUS. PT BECAME INCREASINGLY SOB AND TACHYPNIC. RT PAGED. SPO2 100%ON 4L. DR. PATEL PAGED AT THIS TIME.
--- NOTE | 2016-05-01 11:20 | NUR ---
ORDER OBTAINED FOR ONE TIME DOSE OF HYDROXYZINE. PT IS NOW BREATHING WITHOUT DIFFICULTY. WILL REASSESS ANXIETY.
--- NOTE | 2016-05-01 11:30 | NUR ---
FSBS 282. 16 UNITS OF INSULIN ADMINISTERED TO R SIDE OF ABD PER SS.
--- NOTE | 2016-05-01 12:30 | NUR ---
PT HAD LARGE WATERY BM. PARTIAL BED BATH AND LINEN CHANGE DONE. BARRIER CREAM APPLIED TO BUTTOCK AND ABD FOLDS. BED LOW, CALL LIGHT IN REACH, WILL CPOC.
[2016-05-01 12:45] VITALS: BP 120/55
--- NOTE | 2016-05-01 13:00 | NUR ---
PT STATED THAT MEDICATION DID HELP AND SHE "FEELS BETTER."
--- NOTE | 2016-05-01 15:45 | NUR ---
PRN NORCO ADMINISTERED PER PT COMPLAINTS OF 6/10 LEG PAIN. WILL REASSESS.
[2016-05-01 16:28] VITALS: BP 113/50
--- NOTE | 2016-05-01 16:30 | NUR ---
FSBS 262. 16 UNITS OF INSULIN ADMINISTERED PER SS TO L SIDE OF ABD.
--- NOTE | 2016-05-01 18:00 | NUR ---
PT SITTING UP IN BED WITH DINNER TRAY IN ROOM.
[2016-05-01 19:00] VITALS: BP 117/58
--- NOTE | 2016-05-01 19:20 | NUR ---
PT. ON BARRIACTRIC MATTRESS AND ALSO HAS A TRAPEZ ON THE BEDFRAME. HOB UP FOR COMFORT AND PATIENT WATCHING TV. FRANCIS TO BSD WITHOUT ANY PROBLEMS. PT. ON CONTACT ISOLATION FOR GRAM + URINE AND PT. UNDERSTANDS THIS. ASSESSMENT COMPLETED. NO VOICED NEEDS AT THIS TIME AND HER CALL LIGHT IS WITHIN REACH.
--- NOTE | 2016-05-01 22:20 | NUR ---
PT. HAD BEEN PLACED ON BEDPAN EARLIER AND NOW HER LEGS ARE HURTING. NORCO GIVEN FOR PAIN CONTROL.
--- NOTE | 2016-05-01 23:00 | NUR ---
BLOOD SUGAR RECHECK WAS 372 FROM EARLIER BLOOD SUGAR OF 420. REPORTED THIS TO CHARGE NURSE SAHKA SANCHEZ AND NO FURTHER ACTION NEEDED AT THIS TIME SINCE BLOOD SUGAR LEVEL IS COMING DOWN.
--- NOTE | 2016-05-01 23:40 | NUR ---
PT. IN BED WITH HOB UP FOR COMFORT AND IS WATCHING TV. NO VOICED NEEDS AT THIS TIME AND HER CALL LIGHT IS WITHIN REACH. FRANCIS TO BSD WITHOUT PROBLEMS.
[2016-05-02] VITALS: BP 108/48
[2016-05-02 04:00] VITALS: BP 99/50
--- NOTE | 2016-05-02 05:30 | NUR ---
PT. IN BED WITH HOB UP FOR COMFORT WITH EYES CLOSED AND RESP. EVEN. FRANCIS TO BSD WITHOUT PROBLEMS. CALL LIGHT WITHIN REACH.
[2016-05-02 05:52] LABS: BASOPHILS 0.1 % (0.0-2.0); EOSINOPHILS 0.3 % (0-7); HEMATOCRIT 31.3 % (36.0-48.0); HEMOGLOBIN 10.2 g/dL (12-16); IMMATURE GRANULOCYTES 1.8 % (0-5); LYMPHOCYTES 9.4 % (15-50); MCH 29.4 pg (26.0-34.0); MCHC 32.6 g/dL (31.0-37.0); MCV 90.2 fL (80.0-100.0); MEAN PLATELET VOLUME 10.1 fL (7.4-10.4); MONOCYTES 8.5 % (2-11); NEUTROPHILS 79.9 % (40-80); PLATELET COUNT 292 10x3/uL (130-400); RBC 3.47 10x6/uL (4.00-5.40); RDW 18.7 % (11.5-14.5); WBC 13.5 10x3/uL (4.8-10.8)
[2016-05-02 06:22] LABS: ALBUMIN 1.9 g/dL (3.4-5.0); ANION GAP 16.3 mmol/L (8-16); BILIRUBIN - TOTAL 0.7 mg/dL (0.2-1.3); CALCIUM 8.4 mg/dL (8.5-10.1); CARBON DIOXIDE 22.4 mmol/L (21.0-32.0); CREATININE - SERUM 2.6 mg/dL (0.6-1.3); POTASSIUM - SERUM 3.7 mmol/L (3.5-5.1); PROTEIN - SERUM 7.2 g/dL (6.4-8.2)
[2016-05-02 08:59] VITALS: BP 133/55
--- NOTE | 2016-05-02 09:00 | NUR ---
PATIENT IN BED WITH NO COMPLAINTS AT THIS TIME. IV INTACT. FAMILY AT BEDSIDE. CALL LIGHT WITHIN REACH. REPORT RECIEVED FROM SHUBHAM MATT.
[2016-05-02 12:32] VITALS: BP 127/84
--- NOTE | 2016-05-02 12:45 | NUR ---
PATIENT IN BED WITH IV INTACT. CHANGED AND CLEANED UP BY ZINC PLATER'S AND NURSE WIRE COINER. DRESSING TO RIGHT SIDE CHANGED WELL. NO COMPLAINTS AT THIS TIME. IV INTACT. FAMILY AT BEDSIDE. CALL LIGHT WITHIN REACH.
[2016-05-02 16:08] VITALS: BP 113/57
--- NOTE | 2016-05-02 16:30 | NUR ---
PATIENT IN BED WITH IV NTACT. NO COMPLAINTS AT THIS TIME. IV INTACT. FAMILY AT BEDSIDE. CALL LIGHT WITHIN REACH.
--- NOTE | 2016-05-02 18:45 | NUR ---
PATIENT IN BED WITH IV INTACT. NO COMPLAINTS AT THIS TIME. CALL LIGHT WITHIN REACH.
[2016-05-02 19:00] VITALS: BP 103/49
--- NOTE | 2016-05-03 03:46 | NUR ---
PT IN BED WITH NO DISTRESS NOTED. SIDE RAILS ARE UP X 2. BED IS IN LOWEST POSITION. CALL LIGHT IS WITHIN REACH.
[2016-05-03 04:00] VITALS: BP 95/49
[2016-05-03 06:02] LABS: BASOPHILS 0 % (0.0-2.0); EOSINOPHILS 0.3 % (0-7); HEMATOCRIT 30.5 % (36.0-48.0); HEMOGLOBIN 9.9 g/dL (12-16); IMMATURE GRANULOCYTES 1.5 % (0-5); MCH 29.3 pg (26.0-34.0); MCHC 32.5 g/dL (31.0-37.0); MCV 90.2 fL (80.0-100.0); MEAN PLATELET VOLUME 9.8 fL (7.4-10.4); NEUTROPHILS 81.2 % (40-80); PLATELET COUNT 282 10x3/uL (130-400); RBC 3.38 10x6/uL (4.00-5.40); RDW 18.6 % (11.5-14.5)
[2016-05-03 06:12] LABS: ANION GAP 13.6 mmol/L (8-16); CALCIUM 8.6 mg/dL (8.5-10.1); CREATININE - SERUM 2.1 mg/dL (0.6-1.3); MAGNESIUM - SERUM 2.4 mg/dL (1.8-2.4); POTASSIUM - SERUM 3.6 mmol/L (3.5-5.1)
--- NOTE | 2016-05-03 07:00 | NUR ---
REPORT RECIEVED ASSUMED CARE. PATIENT IN BED WITH IV INTACT. NO COMPLAINTS AT THIS TIME. CALL LIGHT WITHIN REACH.
[2016-05-03 09:23] VITALS: BP 129/46
--- NOTE | 2016-05-03 11:20 | NUR ---
PATIENT IN BED WITH IV INTACT. NO COMPLAINTS. CALL LIGHT WITHIN REACH.
[2016-05-03 11:47] VITALS: BP 112/49
--- NOTE | 2016-05-03 14:45 | NUR ---
PATIENT ON BEDPAN AT THIS TIME. CALL LIGHT WITHIN REACH.
--- NOTE | 2016-05-03 15:00 | NUR ---
PATIENT REPOSITIONED AND CLEANED AT THIS TIME. DRESSING TO ABDOMEN CHANGED. SKIN IMPROVING. BOUDREUXS, NYSTATIN AND POWDER APPLIED TO SKIN. IV INTACT. FAMILY AT BEDSIDE. CALL LIGHT WITHIN REACH.
[2016-05-03 16:05] VITALS: BP 107/44
--- NOTE | 2016-05-03 18:45 | NUR ---
PATIENT IN BED WITH IV INTACT. NO COMPLAINTS AT THIS TIME. CALL LIGHT WITHIN REACH.
[2016-05-03 19:00] VITALS: BP 119/50
--- NOTE | 2016-05-03 20:35 | NUR ---
PATIENT RESTING IN BED WATCHING TV. NO SIGNS OF DISTRESS NOTED. SCHEDULED MEDICATIONS GIVEN ORDERED. SHIFT ASSESSMENT COMPLETED. DENIES ANY NEEDS AT THIS TIME. BED LOW. CALL LIGHT IN REACH.
[2016-05-03 23:59] VITALS: BP 108/51
[2016-05-04 05:03] VITALS: BP 116/59
[2016-05-04 05:09] LABS: BASOPHILS 0.1 % (0.0-2.0); EOSINOPHILS 0.1 % (0-7); HEMATOCRIT 31.9 % (36.0-48.0); HEMOGLOBIN 10.2 g/dL (12-16); IMMATURE GRANULOCYTES 1.7 % (0-5); LYMPHOCYTES 10.2 % (15-50); MCH 29.1 pg (26.0-34.0); MCV 90.9 fL (80.0-100.0); MEAN PLATELET VOLUME 10.2 fL (7.4-10.4); MONOCYTES 7.3 % (2-11); NEUTROPHILS 80.6 % (40-80); PLATELET COUNT 295 10x3/uL (130-400); RBC 3.51 10x6/uL (4.00-5.40); RDW 19.2 % (11.5-14.5); WBC 14.6 10x3/uL (4.8-10.8)
[2016-05-04 05:34] LABS: ANION GAP 13.4 mmol/L (8-16); CALCIUM 8.8 mg/dL (8.5-10.1); MAGNESIUM - SERUM 2.3 mg/dL (1.8-2.4); POTASSIUM - SERUM 3.4 mmol/L (3.5-5.1)
--- NOTE | 2016-05-04 07:30 | NUR ---
AWAKE AND ALERT. ORIENTED X3. NO C/O AT THIS TIME. LUNGS ARE CLEAR BILATERALLY, NO COUGH NOTED. SKIN IS INTACT BUT MULTIPLE AREAS OF WEEPING NOTED. REDNESS IS IMPROVED OVER THE LAST FEW DAYS. FRANCIS PATENT WITH CLEAR YELLOW URINE. LEFT UPPER ARM MIDLINE PATENT WITHOUT REDNESS AT INSERTION SITE. DENIES NEEDS. FAMILY AT BEDSIDE.
[2016-05-04 08:32] VITALS: BP 116/52
[2016-05-04 11:30] VITALS: BP 106/52
--- NOTE | 2016-05-04 12:00 | NUR ---
FSBS 228. GIVEN 12 UNITS HUMALOG SUBQ PER SS. LUNCH TRAY SERVED IN ROOM.
--- NOTE | 2016-05-04 13:16 | EC ---
PATIENT:JANETTE RUSSO DATE OF SERVICE: 04/07/16 SEX: F MEDICAL RECORD: [id number] DATE OF : 70 LOCATION:[id number] AGE OF PATIENT: 45 ADMISSION DATE: 04/07/16 REFERRING PHYSICIAN: INTERPRETING PHYSICIAN: HARI GANDARA M.D. ECHOCARDIOGRAM REPORT ECHO CHARGES 4 ECHO COMPLETE CLINICAL DIAGNOSIS: CHF ECHOCARDIOGRAPHIC MEASUREMENTS (adult normal given) AC root (d.<3.7cm) 2.9 LV Septum d (<1.2 cm> 1.4 Valve Excursion 1.5 LV Septum (systole) 2.1 Left Atria (s.<4.0cm> 3.7 LVPW d(<1.2cm) 1.3 RV (d.<2.3cm) 2.7 LVPW (sytole) 2.0 LV diastole(<5.6CM) 4.8 MV E-F(>70mm/sec) LV systole 3.0 LVOT Diameter 1.8 MV exc.(>10mm) Est.ejection fraction (50-75%) Pericardial Effusion N DOPPLER: LVIT A 104 E 178 LA RVSP 25.0 LVOT 133 AOP1/2T Asc. Ao 219 RVOT 80.0 RA PA 123 AV Gradient Peak 19.2 AV Mean 9.3 AV Area 1.5 MV Gradient Peak 15.0 MV Mean 4.1 MV Area COMMENTS: Lamp Shade Sewer: Kiersten VALLESOE Cotton Grader:Ashok Gandara TAPE# PACS DATE OF SERVICE: 04/27/2016 INDICATION: Congestive heart failure. REFERRING PHYSICIAN: Pj Delgado MD. DESCRIPTION: Left ventricle demonstrates left ventricular hypertrophy. No wall motion abnormalities are noted. Estimated ejection fraction is 55%. Mitral valve is structurally normal. There is no regurgitation or prolapse seen. Diastolic filling appears normal. The aortic valve is trileaflet. I do not see ECHOCARDIOGRAM REPORT [id number] JANETTE RUSSO any stenosis or regurgitation. Right ventricle is mildly dilated. Tricuspid valve is structurally normal. There is no regurgitation noted. Right atrium is mildly dilated. There is no pericardial effusion seen. IMPRESSION: 1. Left ventricular hypertrophy with preserved ejection fraction of 55%. 2. No valvular abnormalities are noted. TRANSINT:[id number] Voice Confirmation ID: [id number] DOCUMENT ID: [id number] HARI GANDARA M.D. at 1316 CC: [id number] DICTATION DATE: 04/27/16 1518 LEARNING STRATEGIST: 04/27/16 1653 ADM IN [facility] [address] [id number]
--- NOTE | 2016-05-04 13:40 | NUR ---
Nutrition follow-up: Diet: Renal consistent CHO PO intake 100% of most meals labs reviewed Glucose high due to continued steroid use. +BM No weight to assess. RDN following.
--- NOTE | 2016-05-04 15:00 | NUR ---
RESTING QUIETLY IN BED WITH EYES CLOSED. DENIES NEEDS.
[2016-05-04 16:45] VITALS: BP 125/48
--- NOTE | 2016-05-04 17:00 | NUR ---
FSBS 122. NO COVERAGE REQUIRED. SUPPER SERVED IN ROOM. NO CHANGES NOTED. DENIES NEEDS.
[2016-05-04 20:50] VITALS: BP 115/46
[2016-05-04 23:00] VITALS: BP 109/55
--- NOTE | 2016-05-04 23:39 | NUR ---
RN NOTE: PT LYING IN SEMI MOREJON'S POSITION WATCHING TV. HAVING SLIGHT NOSEBLEED AT THIS TIME AFTER BLOWING NOSE. CONTACT ISOLATION IN PLACE. WILL CONTINUE TO MONITOR FOR NEEDS.
[2016-05-05 05:00] VITALS: BP 115/58
[2016-05-05 05:32] LABS: BASOPHILS 0.1 % (0.0-2.0); EOSINOPHILS 0.3 % (0-7); HEMATOCRIT 31.2 % (36.0-48.0); HEMOGLOBIN 9.9 g/dL (12-16); IMMATURE GRANULOCYTES 1.4 % (0-5); LYMPHOCYTES 9.4 % (15-50); MCH 29.3 pg (26.0-34.0); MCHC 31.7 g/dL (31.0-37.0); MCV 92.3 fL (80.0-100.0); MEAN PLATELET VOLUME 10.1 fL (7.4-10.4); MONOCYTES 9.3 % (2-11); NEUTROPHILS 79.5 % (40-80); PLATELET COUNT 288 10x3/uL (130-400); RBC 3.38 10x6/uL (4.00-5.40); RDW 19.1 % (11.5-14.5); WBC 13.7 10x3/uL (4.8-10.8)
[2016-05-05 05:49] LABS: CALCIUM 8.7 mg/dL (8.5-10.1); CARBON DIOXIDE 27.5 mmol/L (21.0-32.0); POTASSIUM - SERUM 3.5 mmol/L (3.5-5.1)
--- NOTE | 2016-05-05 08:00 | NUR ---
REQUESTED AND GIVEN ONE HYDROCODONE PO FOR C/O GENERALIZED PAIN LEVEL 5. WILL MONITOR. LUNGS ARE CLEAR BILATERALLY, NO COUGH NOTED. SKIN HAS MULTIPLE AREAS OF CONCERN.THERE IS 2 PLUS EDEMA GENERALIZED. SOME WEEPING NOTED TO AREAS. LEFT UPPER ARM MIDLINE IS PATENT WITHOUT REDNESS AT INSERTION SITE. FRANCIS PATENT WITH CLEAR YELLOW URINE. SITTING UP IN BED EATING BREAKFAST. FAMILY AT BEDSIDE.
[2016-05-05 08:38] VITALS: BP 121/62
--- NOTE | 2016-05-05 11:00 | NUR ---
GIVEN COMPLETE BED BATH AND LINENS CHANGED PER STAFF. DRESSING TO RIGHT HIP CHANGED WELL.
[2016-05-05] MEDS ORDERED: PREDNISONE20 MG PO (11:55)
[2016-05-05] MEDS ORDERED: LANTUS SOL100 UNIT/1 SC (11:56)
[2016-05-05] MEDS ORDERED: HUMALOG 30100 UNITS/ SC (11:56)
--- NOTE | 2016-05-05 12:00 | NUR ---
FSBS 193. GIVEN 8 UNITS HUMALOG SUBQ PER SS.
[2016-05-05] MEDS ORDERED: CHRONULAC30 ML PO (12:03)
--- NOTE | 2016-05-05 13:09 | NUR ---
SPOKE WITH PATIENT'S PARENTS THEY SAID THE PATIENT HAS TO HAVE A LARGER AMBULANCE UNIT COME GET HER. CALLED [facility], TOLD THEM THE PATIENT'S WEIGHT, THE [place] I SPOKE WITH SAID "OKAY SO WE WILL NEED TO SEND THE BARIATRIC UNIT. DUE TO EMERGENCIES IT WILL PROBABLY BE AN HOUR OR LONGER UNTIL WE CAN GET THAT SPECIFIC UNIT OUT THERE."
--- NOTE | 2016-05-05 13:38 | NUR ---
CM REASSESSMENT NOTE: PATIENT IS DISCHARGING TO THE [facility] FOR PERMANENT RESIDENCE BY AMBULANCE. FAMILY AT BEDSIDE. [facility] CALLED FOR THE SPECIAL AMBULANCE FOR TRANSPORT.
--- NOTE | 2016-05-05 13:49 | NUR ---
MIDLINE D/C WITH TIP INTACT WITHOUT DIFFICULTY. APPROXIMATLY 17CM IN LENGTH. PATIENT TOLERATED WITHOUT DIFFICULTY.
--- NOTE | 2016-05-05 15:00 | NUR ---
REPORT CALLED TO RANDALL VARGHESE LPN AT THE [facility] ALL QUESTIONS ANSWERED. PATIENT DISCHARGED VIA AMBULANCE TO [facility]. FAMILY HERE WITH PATIENT.
--- NOTE | 2016-06-14 07:06 | DS ---
PATIENT:JANETTE RUSSO :70 MEDICAL RECORD: [id number] DISCHARGE SUMMARY ADMISSION DATE: 04/07/16 DISCHARGE DATE: 05/05/16 DATE OF ADMISSION: 04/07/2016. DATE OF DISCHARGE: 05/05/2016. CONDITION ON DISCHARGE: Improved. ADMITTING DIAGNOSES: Pyelonephritis, early sepsis, morbid obesity, pulmonary hypertension, hypothyroidism, congestive heart failure, chronic renal insufficiency, and diabetes mellitus. DISCHARGE DIAGNOSES: Sepsis, oaull-ma-umtdlel respiratory failure, pneumonia, metabolic encephalopathy, acute tubular necrosis causing acute kidney failure, morbid obesity, urinary tract infection, anemia, metabolic acidosis ____ diabetes mellitus, candidiasis, hepatomegaly. HOSPITAL COURSE: This patient is a 45-year-old female with longstanding history of morbid obesity. She had recently been admitted to the [facility]. Unable to care for her health. She had been residing with her mother and father for several months. The patient is morbidly obese and bedbound. Over the last couple of days, she become more confused, possibly urinary tract infection. PHYSICAL EXAMINATION: GENERAL: The patient was morbidly obese female, weight is over 480 pounds. VITAL SIGNS: Temperature was 99, her pulse 76, respirations 20, her blood pressure was 124/68, and O2 sat was 98%. HEENT: Unremarkable. NECK: Supple. There is no adenopathy. HEART: Had a regular rhythm. No murmurs, gallops or rubs. LUNGS: Clear. ABDOMEN: Soft, bowel sounds are positive. The patient had a very large pannus. She had 2+ pretibial edema. LABORATORY DATA: She had a white count elevated at 13.9, hemoglobin 9.2, hematocrit was 28.8 and her platelets were 275. Sodium 136, potassium 5, chloride was 103 and CO2 was 24. Her BUN was 42, creatinine 1.5. She had 2+ blood in her urine, rbc's was seen, many bacteria. The patient was admitted. Blood cultures were obtained. She was started on Levaquin as well as Zosyn. Over the coming days, the patient had consultation from Dr. King, a safety and occupational health manager as well as Dr. Berman, the infectious disease physician, also, cardiology consultation was obtained. Nephrology consultation was also obtained. The patient had acute mental status changes secondary to elevated ammonia level. She was started on lactulose. She continued to have leukocytosis. She was given O2 supplementation along with updraft therapy. She was also on CPAP. The patient's acute tubular necrosis was secondary to her morbid obesity ____ as well as her sepsis. She had a generalized anasarca. She was given IV fluids, attempt to bring her blood pressure up: The patient progressed very slowly. She developed candidiasis in the groin area as well as suprapubic region. She also developed hyponatremia during her hospitalization. She was given 3% saline in an attempt to correct. On the May 05, the patient's pulse was 100, respirations 20, her blood pressure 115/58, her O2 sat was 97% on room air. She was resting comfortably. Family was at bedside. DISCHARGE SUMMARY REPORT [id number] KARANJANETTE MCGEE Family was made aware of the patient's poor prognosis, but felt that she had reached her maximum benefit from being hospitalized. Her IV medications were switched to p.o. medications. She was discharged back to the intermediate. DISCHARGE INSTRUCTIONS: She was to be on Protonix 40 mg once a day, Ativan 0.5 q.12 hours p.r.n. anxiety, Singulair 10 mg once a day, Advair HFA 115 mcg/21 two puffs b.i.d., Topamax 100 mg b.i.d., nabumetone 750 mg p.o. b.i.d., Prozac 40 mg once a day, iron sulfate 325 mg p.o. b.i.d., [place] 10/325 one every 4 hours p.r.n. severe pain, vitamin A 70 mg once a day, Flexeril 10 mg p.o. q.8 hours p.r.n. muscle spasm, vitamin D3 of 2000 international units once a day, aspirin 81 mg once a day, Mucinex 600 mg 2 tabs p.o. b.i.d., vitamin B, vitamin C complex, Xopenex 1.25 q.4 hours p.r.n. shortness of breath, metoprolol tartrate 12.5 b.i.d., sildenafil 20 mg p.o. t.i.d., Glucophage 500 mg p.o. b.i.d., Lasix 40 mg once a day, levothyroxine 100 mcg once a day, magnesium oxide 400 mg b.i.d., Neurontin 300 b.i.d., Tums 500 mg p.o. p.r.n. heartburn and indigestion, Bumex 2 mg p.o. q.8 hours, prednisone 20 mg daily, Lantus 40 mg p.o. q.h.s. Also, the patient was on Humalog sliding scale, lactulose 45 mg t.i.d. The patient was to follow up with the nephrology in 1 week. She would also follow up with me. DIET: 2200-calorie ADA diet. ACTIVITIES: Ad albino. TRANSINT:[id number] Voice Confirmation ID: [id number] DOCUMENT ID: [id number] YENNIFER BIRCH MD at 0706 CC: [id number] DICTATION DATE: 06/12/16 1323 INSPECTOR MECHANICAL: 06/13/16 0939 DIS IN 05/05/16 [address] [id number] [place] [address]
== END 2016-05-05 15:00 | DRG 871 ==
LOC: D.ER 03:07 → D.ICU 05:51 → D.MS 05:51
PROVIDERS: Emergency Medicine; Family Medicine; General Practice; Internal Medicine; Internal Medicine Nephrology; Internal Medicine Pulmonary Disease; Student in an Organized Health Care Education/Training Program; ADMIT Family Medicine
PROC: 05HC33Z Insertion of Infusion Device into Left Basilic Vein, Percutaneous Approach (ICD-10-PCS; principal; 2016-04-14)
PROC: B54NZZA Ultrasonography of Left Upper Extremity Veins, Guidance (ICD-10-PCS; 2016-04-14)
DX: A41.9 Sepsis, unspecified organism (principal); J96.21 Acute and chronic respiratory failure with hypoxia; J18.9 Pneumonia, unspecified organism; G93.41 Metabolic encephalopathy; N17.0 Acute kidney failure with tubular necrosis; N12 Tubulo-interstitial nephritis, not specified as acute or chronic; E66.2 Morbid (severe) obesity with alveolar hypoventilation; Z68.45 Body mass index [BMI] 70 or greater, adult; N39.0 Urinary tract infection, site not specified; D62 Acute posthemorrhagic anemia; E87.1 Hypo-osmolality and hyponatremia; E87.2 Acidosis; R65.20 Severe sepsis without septic shock; I27.2 Other secondary pulmonary hypertension; Z91.120 Patient's intentional underdosing of medication regimen due to financial hardship; J45.909 Unspecified asthma, uncomplicated; I95.9 Hypotension, unspecified; B95.1 Streptococcus, group B, as the cause of diseases classified elsewhere; E11.9 Type 2 diabetes mellitus without complications; B95.7 Other staphylococcus as the cause of diseases classified elsewhere; I83.10 Varicose veins of unspecified lower extremity with inflammation; B37.2 Candidiasis of skin and nail; B37.3 Candidiasis of vulva and vagina; G89.29 Other chronic pain; R34 Anuria and oliguria; Z91.19 Patient's noncompliance with other medical treatment and regimen; N32.89 Other specified disorders of bladder; E87.6 Hypokalemia; R16.0 Hepatomegaly, not elsewhere classified

== ENCOUNTER 2016-08-20 22:37 | Emergency (ER) | payer MEDICAID ==
[2016-04-07 12:37] VITALS: BMI 77.8
[~2016-08-20 22:37] MED LIST changes: +CHRONULAC30 ML PO; +HUMALOG 30100 UNITS/ SC; +PREDNISONE20 MG PO
[2016-08-20 23:34] LABS: BASOPHILS 0.6 % (0-2); EOSINOPHILS 5.4 % (0-7); HEMATOCRIT 27.4 % (36.0-48.0); HEMOGLOBIN 8.6 g/dL (12-16); IMMATURE GRANULOCYTES 1.8 % (0-5); LYMPHOCYTES 10.7 % (15-50); MCH 28.9 pg (26.0-34.0); MCHC 31.4 g/dL (31.0-37.0); MCV 91.9 fL (80.0-100.0); MEAN PLATELET VOLUME 9.8 fL (7.4-10.4); MONOCYTES 12.4 % (2-11); NEUTROPHILS 69.1 % (40-80); PLATELET COUNT 395 10x3/uL (130-400); RBC 2.98 10x6/uL (4.00-5.40); WBC 14.2 10x3/uL (4.8-10.8)
[2016-08-20 23:47] LABS: ALBUMIN 1.6 g/dL (3.4-5.0); ANION GAP 12.8 mmol/L (8-16); BILIRUBIN - TOTAL 1.15 mg/dL (0.2-1.3); CALCIUM 8.8 mg/dL (8.5-10.1); CARBON DIOXIDE 24.8 mmol/L (21.0-32.0); CREATININE - SERUM 2.1 mg/dL (0.6-1.3); POTASSIUM - SERUM 5.6 mmol/L (3.5-5.1); PROTEIN - SERUM 7.6 g/dL (6.4-8.2)
== END 2016-08-21 00:22 | disposition home or self-care (01) ==
LOC: D.ER 22:37
PROVIDERS: Family Medicine
DX: E11.9 Type 2 diabetes mellitus without complications (principal); E87.5 Hyperkalemia; N28.9 Disorder of kidney and ureter, unspecified; I50.9 Heart failure, unspecified; K21.9 Gastro-esophageal reflux disease without esophagitis; I27.2 Other secondary pulmonary hypertension

== ENCOUNTER 2016-09-04 16:05 | Inpatient (IN) | payer MEDICARE ==
[~2016-09-04] VITALS: Ht 167.6 cm; Wt 193.2 kg
[2016-09-04 17:45] LABS: APPEARANCE CLOUDY (CLEAR); BILIRUBIN NEGATIVE (NEGATIVE); COLOR YELLOW (YELLOW); GLUCOSE NEGATIVE (NEGATIVE); KETONE NEGATIVE (NEGATIVE); LEUKOCYTE ESTERASE 2+ (NEGATIVE); NITRITE NEGATIVE (NEGATIVE); PROTEIN 1+ mg/dL (NEGATIVE); SPECIFIC GRAVITY 1.015 (1.005-1.020); UROBILINOGEN NORMAL (NORMAL)
[2016-09-04 17:47] LABS: BACTERIA MANY /hpf (NONE SEEN); EPITHELIAL CELLS 0-5 /hpf (0-5)
[2016-09-04 17:54] LABS: BASOPHILS 0.9 % (0-2); EOSINOPHILS 3.6 % (0-7); HEMATOCRIT 27.5 % (36.0-48.0); HEMOGLOBIN 8.8 g/dL (12-16); IMMATURE GRANULOCYTES 1.5 % (0-5); LYMPHOCYTES 9.7 % (15-50); MCH 28.8 pg (26.0-34.0); MCV 89.9 fL (80.0-100.0); MEAN PLATELET VOLUME 9.2 fL (7.4-10.4); MONOCYTES 9.6 % (2-11); NEUTROPHILS 74.7 % (40-80); RBC 3.06 10x6/uL (4.00-5.40); RDW 18.3 % (11.5-14.5); WBC 19.5 10x3/uL (4.8-10.8)
[2016-09-04 17:55] LABS: PLATELET COUNT 476 10x3/uL (130-400)
[2016-09-04 18:01] LABS: INR 1.42 (0.85-1.17); PROTIME 17.2 SECONDS (11.6-15.0)
[2016-09-04 18:02] LABS: APTT 44.9 SECONDS (22.8-39.4)
[2016-09-04 18:06] LABS: ALBUMIN 1.1 g/dL (3.4-5.0); ANION GAP 14.9 mmol/L (8-16); BILIRUBIN - TOTAL 1.4 mg/dL (0.2-1.3); CALCIUM 8.4 mg/dL (8.5-10.1); CARBON DIOXIDE 21.7 mmol/L (21.0-32.0); CREATININE - SERUM 2.1 mg/dL (0.6-1.3); MAGNESIUM - SERUM 2.5 mg/dL (1.8-2.4); POTASSIUM - SERUM 5.6 mmol/L (3.5-5.1)
--- NOTE | 2016-09-04 20:20 | NUR ---
RECEIVED PT TO ROOM 2130 ALERT O X3. FAMILY WITH PT. TRANSFERRED TO [facility] BED WITH TOTAL ASSIST.
[2016-09-04 22:04] VITALS: BMI 87.0
--- NOTE | 2016-09-05 03:42 | NUR ---
SUPERVISOR SOAKERS AT BEDSIDE FOR VS. NEEDS ADDRESSED AT THIS TIME. CALL LIGHT IN REACH. WILL CONT TO MONITOR.
[2016-09-05 04:00] VITALS: BP 125/54
[2016-09-05 05:03] LABS: BASOPHILS 0.5 % (0-2); HEMATOCRIT 27.4 % (36.0-48.0); HEMOGLOBIN 8.7 g/dL (12-16); IMMATURE GRANULOCYTES 1.6 % (0-5); LYMPHOCYTES 8.7 % (15-50); MCH 28.6 pg (26.0-34.0); MCHC 31.8 g/dL (31.0-37.0); MCV 90.1 fL (80.0-100.0); MEAN PLATELET VOLUME 9.3 fL (7.4-10.4); MONOCYTES 11.2 % (2-11); PLATELET COUNT 464 10x3/uL (130-400); RBC 3.04 10x6/uL (4.00-5.40); RDW 18.1 % (11.5-14.5); WBC 19.5 10x3/uL (4.8-10.8)
[2016-09-05 05:28] LABS: ALBUMIN 1.1 g/dL (3.4-5.0); ANION GAP 16.2 mmol/L (8-16); BILIRUBIN - TOTAL 1.26 mg/dL (0.2-1.3); CALCIUM 8.4 mg/dL (8.5-10.1); CARBON DIOXIDE 21.7 mmol/L (21.0-32.0); CREATININE - SERUM 2.1 mg/dL (0.6-1.3); POTASSIUM - SERUM 5.9 mmol/L (3.5-5.1); PROTEIN - SERUM 6.3 g/dL (6.4-8.2)
--- NOTE | 2016-09-05 07:44 | NUR ---
0705-AM ROUNDING DONE WITH PATIENT'S FATHER AT BEDSIDE. LEFT THIGH IS SEEN WRAPPED IN JUAN. ON ROOM AIR. LEFT HAND WITH NS INFUSING AT 125 CC/HR WITHOUT PROBLEMS. PATIENT HAS A CHRONIC FRANCIS CATH, LYMPHADEMA SEEN ON TRRUNK AND LEGS. THERE IS A FOUL ODOR IN ROOM IF A WOUND IS DRAINING.
[2016-09-05 07:52] VITALS: BP 121/51
[2016-09-05 11:56] VITALS: BP 124/59
[2016-09-05 12:29] VITALS: Ht 167.6 cm; Wt 193.2 kg
--- NOTE | 2016-09-05 14:14 | NUR ---
PT FROM ME - NOTED A VERY FOUL ODOR WHEN ENTERING ROOM. NOTED THE ODOR TO BE FROM A WOUND ON LEFT INNER THIGH. THE OUTSIDE OF WOUND IS BLACK WITH A OPEN SPOT APPROX SIZE OF PENCIL ERASER. BLACK COFFEE GROUND LOOKING DRAINAGE SEEPS OUT WHEN THE LEG IS MOVED OR TOUCHED. MEASUREMENTS ARE APPROX 3CM X 5CM X 3CM X 5CM FROM 12 TO 12 OCLOCK. CLEANSED WOUND WITH NORMAL SALINE AND LOOSELY PACKED WITH 4X4 SATURATED WITH NS. RECOMMEND CULTURES BE OBTAINED AND TO DO WET TO DRY DRESSINGS WITH DAKINS SOLUTION. MAY EVEN NEED SURGICAL CONSULT? ABDOMEN, HIPS UPPER THIGHS HAVE ROUGH SKIN WITH LARGE BUMPS. WOUND CARE WILL MONITOR.
--- NOTE | 2016-09-05 15:37 | NUR ---
CALLED DR MCFALRAND OFFICE REGARDING CORE MEASURES ON DVT. NEW ORDERS RECEIVED.
[2016-09-05 16:14] VITALS: BP 107/52
--- NOTE | 2016-09-05 17:40 | NUR ---
NO CHANGES IN INTIAL ASSESSMENT EXCEPT NEW FRANCIS CATH THAT WAS RE-PLACED TODAY. LEFT THIGH DRESSING SEEN, INTACT AT PRESENT TIME. WILL CONTINUE TO MONITOR.
--- NOTE | 2016-09-05 19:59 | NUR ---
FAN TAKEN TO ROOM AT PTS REQUEST.
[2016-09-05 20:00] VITALS: BP 125/54
--- NOTE | 2016-09-05 23:00 | NUR ---
ADMIN SCHED MEDS, NORCO 10 PO AND FLEXERIL PO PER REQUEST FOR C/O ABD PAIN FROM SORES. DESCRIBED BURNING AND STINGING, PAIN LEVEL 6 ON 0-10 NUMBER SCALE. REQUESTED A DIET SODA AND BROTH.
--- NOTE | 2016-09-06 01:07 | NUR ---
ASSIST PT WITH USE OF BED WHITEHEAD.
--- NOTE | 2016-09-06 01:14 | NUR ---
ANSWERED CL, REMOVED BED WHITEHEAD OUT FROM UNDER PT, PT HAD VERY LARGE LOOSE BM. BATH AND LINEN CHANGE DONE.
[2016-09-06 04:00] VITALS: BP 87/47
--- NOTE | 2016-09-06 04:50 | NUR ---
PT INCONTINENT OF BOWEL, ASSISTED VALVE INSERTER AT BED SIDE WITH CLEANING PT AND LINEN CHANGE.
[2016-09-06 05:33] LABS: HEMATOCRIT 26.1 % (36.0-48.0); HEMOGLOBIN 8.1 g/dL (12-16); MCV 90.3 fL (80.0-100.0); MEAN PLATELET VOLUME 9.4 fL (7.4-10.4); PLATELET COUNT 412 10x3/uL (130-400); RBC 2.89 10x6/uL (4.00-5.40); RDW 18.3 % (11.5-14.5); WBC 20.1 10x3/uL (4.8-10.8)
[2016-09-06 06:21] LABS: ALBUMIN 1.3 g/dL (3.4-5.0); ANION GAP 17.2 mmol/L (8-16); BILIRUBIN - TOTAL 1.6 mg/dL (0.2-1.3); CALCIUM 8.3 mg/dL (8.5-10.1); CARBON DIOXIDE 18.6 mmol/L (21.0-32.0); CREATININE - SERUM 1.8 mg/dL (0.6-1.3); MAGNESIUM - SERUM 2.3 mg/dL (1.8-2.4); PROTEIN - SERUM 6.7 g/dL (6.4-8.2)
[2016-09-06 06:22] LABS: POTASSIUM - SERUM 4.8 mmol/L (3.5-5.1)
--- NOTE | 2016-09-06 06:27 | NUR ---
ASSIST PT WITH USE OF BED WHITEHEAD
[2016-09-06 06:35] LABS: EOSINOPHILS 1 % (0-7); LYMPHOCYTES 9 % (15-50); MONOCYTES 5 % (2-11); NEUTROPHILS 81 % (40-80); PLATELET ESTIMATE INCREASED
--- NOTE | 2016-09-06 06:58 | HP ---
PATIENT: JANETTE RUSSO MEDICAL RECORD: [id number] ACCOUNT: [id number] LOCATION:[address] : 70 ADMISSION DATE: 09/04/16 HISTORY AND PHYSICAL EXAMINATION DATE OF ADMISSION: 09/04/2016 CHIEF COMPLAINT: Altered mental status. HISTORY OF PRESENT ILLNESS: The patient is a 46-year-old morbidly obese white female who resides at a local halfway. Apparently, the patient had been in the Emergency Room approximately 2 weeks ago and was sent back to the halfway. Apparently, the patient was found to have elevated ammonia level as well as elevated potassium in her halfway, presented for further evaluation. In the Emergency Room, the patient was found to have elevated white blood cell count and also acute renal failure. It is felt the patient should be admitted. PAST MEDICAL HISTORY: Significant that she has had a cholecystectomy, bilateral ankle fracture. She has had left hip replaced. She suffered from depression, diabetes, morbid obesity, ____, pulmonary hypertension, hyperlipidemia, hypertension, hypothyroidism. FAMILY HISTORY: Apparently history of cancer, type unknown. Also, high blood pressure, obesity. SOCIAL HISTORY: The patient is single, 4-year graduate of [employer]. 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 Stopped smoking in 1999. She denies any ethanol use. The patient is totally bedbound. ALLERGIES: THE PATIENT IS ALLERGIC TO DYAZIDE, HYDROCHLOROTHIAZIDE, SULFA, TRIAMTERENE. MEDICATIONS: According to exam in the Emergency Room, which is not well documented by the staff in the Emergency Room: Claritin 10 mg 1 p.o. q. day, Protonix 40 mg 1 p.o. q. day, calcium carbonate 500 mg 1 tablet p.r.n., Xopenex 1.25 q.4 hours p.r.n. shortness of breath, vitamin C 500 mg 2 tablets once a day, vitamin D 1000 international units once a day, nabumetone 750 mg p.o. b.i.d., metoprolol tartrate 25 mg half tablet b.i.d., mag oxide 400 mg b.i.d., [place] 10/325 one in 4 hours p.r.n. severe pain, gabapentin 300 mg 1 p.o. q. day, Prozac of 80 mg once a day, Tylenol 325 mg p.r.n. pain or elevated temperature over 100.5, ferrous sulfate 325 p.o. b.i.d., Tylenol 325, Flexeril 10 mg q.8 hours p.r.n. muscle spasm, aspirin 81 mg once a day, levothyroxine 0.1. mg q. day, Humalog sliding scale, Lasix 40 mg daily, Lantus 40 units subcutaneous at bedtime, Advair 115/21 two puffs daily. REVIEW OF SYSTEMS: CONSTITUTIONAL: She denies any headaches, seizure or syncope. She denies change in visual or auditory acuity. PULMONARY: She has reported shortness of breath, no cough, no congestion. CARDIOVASCULAR: No chest pain, palpitations, PND or current orthopnea. GASTROINTESTINAL: No chronic nausea, vomiting, melena or hematochezia. GENITOURINARY: No urgency, frequency, or dysuria. PHYSICAL EXAMINATION: GENERAL: She is a morbidly obese white female whose weight is approximately at HISTORY AND PHYSICAL [id number] DERMOTT,JANETTE 538 pounds, BMI is 86.6. VITAL SIGNS: Temperature is 96.9, pulse 70, respirations 18, blood pressure 120/68, O2 sat is 96% on room air. She is alert. She is oriented times 3. HEENT: Head is normocephalic. No lesions. Ears: TMs clear. Eyes: Pupils equal, round and reactive to light. Extraocular movements intact. Nasal cavity, oral cavity and oropharynx clear. NECK: Supple. There is no adenopathy. HEART: Slight tachycardic. LUNGS: Clear. ABDOMEN: Soft, bowel sounds are positive. She has edema in the abdominal wall with serosanguineous fluid oozing. EXTREMITIES: Lower extremities, the patient has 3+ pretibial edema. LABORATORY DATA: The patient had a urinalysis. The urinalysis showed 10-25 wbc's per high power field, many bacteria were noted. She had a white count of 19.5, hemoglobin 8.8, hematocrit 27.5, platelets 476. Sodium was 134, potassium was 5.9, chloride was 21, creatinine was 2.1, BUN is 47, glucose 145. Magnesium was not done. Alkaline phosphatase was elevated. Ammonia was initially 86, on the morning of the 12th it was down and 62. Albumin is 1.1. ASSESSMENT: 1. Morbid obesity. 2. Leukocytosis. 3. Anasarca. 4. Hypothyroidism. 5. Hypertension. 6. Pulmonary hypertension. 7. Urinary tract infection. 8. Peripheral neuropathy. 9. Chronic pain. 10. Asthma. PLAN: The patient is admitted, placed on Rocephin as well as Levaquin. Urine culture will be obtained. We will change the Small catheter and hydrate the patient. Place her on Kayexalate as well as lactulose. Continue to evaluate. TRANSINT:[id number] Voice Confirmation ID: [id number] DOCUMENT ID: [id number] YENNIFER BIRCH MD at 0658 CC: [id number] DICTATION DATE: 09/05/16711 WIRE FRAME DIPPER: 09/05/16 1308 ADM IN [place] [id number] [place] [id number]
--- NOTE | 2016-09-06 07:32 | NUR ---
0705-AM ROUNDING DONE WITH DR MCFARLAND IN ROOM WITH PATIENT AND PATIENT'S FATHER. NS SEEN INFUSING TO LEFT HAND AT 125 CC/HR WITHOUT PROBLEMS. ON ROOM AIR. ON BIG BOY BED ([facility]). PATIENT REPORTS TO DR MCFARLAND THAT HER PAIN MEDICATION IS NOT HOLDING HER, I INFORMED HIM THAT SHE RECEIVED HER LAST PAIN PILL AT 2203. WILL MEDICATE THIS AM. FRANCIS CATH SEEN WITH CLEAR YELLOW URINE. SLIGHT ODOR TO ROOM FROM LEFT THIGH SEEN WITH DRY INTACT DRESSING. BILATERAL LEGS SEEN WITH LYMPHADEMA ALONG WITH MORBID OBESE ABDOMEN WITH LYMPHADEMA. BILATERAL FEET ARE 3-4+ EDEMA. WILL MONITOR.
--- NOTE | 2016-09-06 07:48 | NUR ---
COMPLAINTS OF LEG PAIN 09/03, NORCO GIVEN ORDERED.
[2016-09-06 08:00] VITALS: BP 87/39
--- NOTE | 2016-09-06 10:38 | NUR ---
WOUND CARE: RE: OPEN WOUND LEFT THIGH REMOVED DRESSING. NOTED FOUL ODOR AND BLACKISH COFFEE GROUND DRAINAGE. CLEANSED WELL AND DRIED. WOUND CULTURES OBTAINED. PACKED WOUND WITH ONE 4X4 SATURATED IN NORMAL SALINE. COVERED WITH DRY 4X4S AND SECURED WTIH WHITE BORDERED GAUZE. CULTURES SENT TO LAB. WOUND CARE WILL MONITOR.
[2016-09-06 12:00] VITALS: BP 110/46
[2016-09-06 16:00] VITALS: BP 104/57
--- NOTE | 2016-09-06 16:02 | NUR ---
Patient Name: JANETTE RUSSO Admission Status: ER Accout number: [id number] Admission Date: 09-04-2016 : 1970 Admission Diagnosis: Attending: KIM Current LOS: 2 Anticipated DC Date: Planned Disposition: Nursing Facility [facility] Primary Insurance: [place]ICAID [place] Discharge Planning Comments: CM MET WITH PATIENT TO DISCUSS DISCHARGE PLANNING/NEEDS. PATIENT STATED THAT SHE HAS BEEEN A RESIDENT AT THE [facility] SINCE OCTOBER OF 2015 AND PLANS TO RETURN TO THE FACILITY. SHE STATED SHE IS HAPPY WITH THE CARE SHE RECEIVES THERE AND FEELS VERY SAFE. SHE SAID THE FACILITY MAY COME AND GET HER AT DISCHARGE, BUT SHE MADE NEED THE AMBULANCE TO TAKE HER HOME. MEDICATION AND DME NEEDS CURRENTLY BEING SUPPLIED BY THE FACILITY. CM WILL CONTINUE TO FOLLOW AND ASSIST NEEDED. Robotics Technician: Alayna Hewitt Is the patient Alert and Oriented? Yes * How many steps to enter\exit or inside your home? 0 * PCP DR. YENNIFER CARY * Pharmacy [facility] * [facility] * Facility Name [facility] * ADLs Total Dependent * Equipment Bedside Commode CPAP Hospital Bed Kathia Lift Nebulizer Oxygen Shower Chair Wheelchair Wound Supplies * List name and contact numbers for known caregivers / representatives who currently or will assist patient after discharge: JOSE MARIA RUSSO, FATHER, * Community resources currently utilized None * Additional services required to return to the preadmission environment? No * Can the patient safely return to the preadmission environment? Yes * Has this patient been hospitalized within the prior 30 days at any hospital? No
--- NOTE | 2016-09-06 16:21 | NUR ---
IV TO LEFT HAND SEEN OUT OF SITE, LEAKING ON PATIENT. CATH TIP INTACT. MAC BANKS RN TO RE-SITE IV WITH 22 G TO LEFT HAND X 1 STICK.
[2016-09-06 19:00] VITALS: BP 109/51
--- NOTE | 2016-09-06 20:58 | NUR ---
PT AWAKE, ALERT, TALKING ON TELEPHONE. CONTINUE TO MONITOR.
[2016-09-07] VITALS: BP 130/61
--- NOTE | 2016-09-07 01:34 | NUR ---
PT HAS REDNESS UNDER SKIN FOLDS AND BREASTS. WILL ASK FOR NYSTATIN POWDER.
--- NOTE | 2016-09-07 02:25 | NUR ---
WOUND CARE COMPLETE ON LT ANTERIOR THIGH, BED BATH COMPLETE, LINEN AND GOWN CHANGED, PT RESTING COMFORTABLY, CONTINUE TO MONITOR CLOSELY.
[2016-09-07 04:00] VITALS: BP 109/53
[2016-09-07 05:42] LABS: BASOPHILS 0.6 % (0-2); EOSINOPHILS 4.7 % (0-7); HEMATOCRIT 26.8 % (36.0-48.0); HEMOGLOBIN 8.4 g/dL (12-16); IMMATURE GRANULOCYTES 2.5 % (0-5); LYMPHOCYTES 9.1 % (15-50); MCH 28.9 pg (26.0-34.0); MCHC 31.3 g/dL (31.0-37.0); MCV 92.1 fL (80.0-100.0); MEAN PLATELET VOLUME 9.7 fL (7.4-10.4); MONOCYTES 9.1 % (2-11); PLATELET COUNT 409 10x3/uL (130-400); RBC 2.91 10x6/uL (4.00-5.40); WBC 21.9 10x3/uL (4.8-10.8)
[2016-09-07 05:48] LABS: ANION GAP 15.5 mmol/L (8-16); CALCIUM 8.6 mg/dL (8.5-10.1); CARBON DIOXIDE 20.5 mmol/L (21.0-32.0)
[2016-09-07 07:00] VITALS: BP 118/59
[2016-09-07 12:00] VITALS: BP 100/48
--- NOTE | 2016-09-07 13:10 | NUR ---
Nutrition follow-up: Diet: ADA consistent CHO PO intake 100% of meals at this time labs reviewed Wt: 506# RDN following.
--- NOTE | 2016-09-07 14:03 | NUR ---
BARB LANG, COORDINATOR FOR [facility] CALLED REQUESTING A FAXED UPDATE ON THE PATIENT. UPDATE FAXED TO [phone].
[2016-09-07 16:00] VITALS: BP 107/45
[2016-09-07 19:00] VITALS: BP 121/56
--- NOTE | 2016-09-07 21:10 | NUR ---
PT AWAKE, ALERT, ORIENTED, DENIES ANY CURRENT NEEDS. CONTINUE TO MONITOR CLOSELY.
--- NOTE | 2016-09-07 21:25 | NUR ---
PT STATES SHE TAKES MUCINEX BID REGULARLY AND WOULD LIKE TO BE RESTARTED ON IT TO KEEP HER FROM GETTING CONGESTED R/T HER IMMOBILITY. WILL DISCUSS WITH PHYSICIAN ABOUT REQUEST. CONTINUE TO MONITOR.
[2016-09-08] VITALS: BP 111/49
--- NOTE | 2016-09-08 02:42 | NUR ---
PT RECEIVED BED BATH, LINEN CHANGE, GOWN CHANGE, DRESSING CHANGE TO LT ANTERIOR THIGH, DID NOT TOLERATE WELL. PT C/O GREAT PAIN WHEN BEING TURNED. WEEPING EDEMA CAUSES CONSTANT MOISTURE UNDER AND AROUND PT CONSTANTLY. CONTINUE TO MONITOR CLOSELY.
[2016-09-08 04:00] VITALS: BP 109/58
[2016-09-08 05:15] LABS: BASOPHILS 0.8 % (0-2); EOSINOPHILS 5.4 % (0-7); HEMATOCRIT 27.5 % (36.0-48.0); HEMOGLOBIN 8.7 g/dL (12-16); IMMATURE GRANULOCYTES 3.9 % (0-5); LYMPHOCYTES 9.2 % (15-50); MCH 29.1 pg (26.0-34.0); MCHC 31.6 g/dL (31.0-37.0); MEAN PLATELET VOLUME 9.7 fL (7.4-10.4); NEUTROPHILS 72.7 % (40-80); PLATELET COUNT 434 10x3/uL (130-400); RBC 2.99 10x6/uL (4.00-5.40); RDW 19.2 % (11.5-14.5); WBC 23.8 10x3/uL (4.8-10.8)
[2016-09-08 05:18] LABS: ANION GAP 15.5 mmol/L (8-16); CALCIUM 8.6 mg/dL (8.5-10.1); CARBON DIOXIDE 19.1 mmol/L (21.0-32.0); CREATININE - SERUM 2.3 mg/dL (0.6-1.3); POTASSIUM - SERUM 4.6 mmol/L (3.5-5.1)
--- NOTE | 2016-09-08 08:00 | NUR ---
PT SITTING UP IN BED DENIES ANY NEEDS WILL CONT TO MONITOR.
[2016-09-08 08:57] VITALS: BP 134/46
[2016-09-08 12:13] VITALS: BP 120/49
--- NOTE | 2016-09-08 13:29 | NUR ---
PT SITTING UP IN BED FATHER AT BEDSIDE. DENIES ANY NEEDS WILL CONT TO MONITOR
[2016-09-08 15:59] VITALS: BP 108/52
--- NOTE | 2016-09-08 18:45 | NUR ---
FRANCIS CATH HAS BEEN LEAKING. REMOVED WITH 10 CC FLUID INTACT. AND RESINSERTED. 6 PEOPLE AND 3 TRIES. FRANCIS CATH IS IN URETHRA WITH NO URINE RETURN. STERILE TECHNIQUE TO BEST OF OUR ABILITY. 10 CC OF STERILE FLUID INSERTED.
[2016-09-08 19:00] VITALS: BP 101/51
--- NOTE | 2016-09-08 21:04 | NUR ---
PT AWAKE, ALERT, ORIENTED, LYING IN BED, HOB 45 DEGREES. PT IS TEARFUL, STATES SHE HAS HAD A DIFFICULT DAY TODAY R/T HER CHRONIC INDWELLING FRANCIS CATHETER. DAY SHIFT RN, CURT[facility], STATED THEY HAD A DIFFICULT TIME REPLACING CATH TODAY PT'S OUTPUT WAS GREATLY DECREASED AND FELT THE CATHETER WAS NOT PLACED CORRECTLY. UPON VISUALIZATION TONIGHT, THE FRANCIS CATHETER HAS URINE SITTING IN THE DRAIN TUBE, NONE IN THE COLLECTION BAG. MYSELF, THREE OTHER NURSES AND A SUPPORT REPRESENTATIVE WENT IN TO REPOSITION PATIENT TO ASSIST WITH THE GRAVITATIONAL PULL. THERE IS A LARGE AMOUNT OF SEDIMENT IN THE FRANCIS TUBE, SO I FLUSHED IT, RELEASING A MINIMAL AMOUNT OF URINE. FRANCIS IS CURRENTLY DRAINING VERY SMALL AMOUNTS OF URINE AT THIS TIME. WILL CONTINUE TO MONITOR CLOSELY.
--- NOTE | 2016-09-09 01:28 | NUR ---
PT IS DEMONSTRATING INCREASED SOB, USE OF ACCESSORY MUSCLES, LABORED BREATHING, AND GREAT GENERALIZED DISCOMFORT. I HAVE IRRIGATED PT'S FRANCIS WITH 100ML OF STERILE H2O TO AID IN DRAINAGE, HOWEVER, PT'S OUTPUT IS STILL MINIMAL AT 200CC AT THIS TIME. URINE IS CONCENTRATED WITH LARGE AMOUNTS OF SEDIMENT. WILL CONTINUE TO MONITOR CLOSELY AND FREQUENTLY.
--- NOTE | 2016-09-09 03:31 | NUR ---
BED BATH GIVEN, GOWN CHANGE, LINEN CHANGE, DRESSING TO LT THIGH CHANGED.
[2016-09-09 04:00] VITALS: BP 150/84
[2016-09-09 05:11] LABS: BASOPHILS 0.8 % (0-2); HEMATOCRIT 27.9 % (36.0-48.0); HEMOGLOBIN 8.5 g/dL (12-16); IMMATURE GRANULOCYTES 4.9 % (0-5); LYMPHOCYTES 9.7 % (15-50); MCH 28.3 pg (26.0-34.0); MCHC 30.5 g/dL (31.0-37.0); MEAN PLATELET VOLUME 9.7 fL (7.4-10.4); NEUTROPHILS 71.6 % (40-80); PLATELET COUNT 416 10x3/uL (130-400); RDW 19.3 % (11.5-14.5); WBC 22.8 10x3/uL (4.8-10.8)
[2016-09-09 05:23] LABS: ANION GAP 17.6 mmol/L (8-16); CALCIUM 8.8 mg/dL (8.5-10.1); CARBON DIOXIDE 18.7 mmol/L (21.0-32.0); POTASSIUM - SERUM 4.3 mmol/L (3.5-5.1)
[2016-09-09 05:24] LABS: CREATININE - SERUM 3.1 mg/dL (0.6-1.3)
--- NOTE | 2016-09-09 07:27 | NUR ---
PT SITTING UP IN BED DENIES ANY NEEDS. FATHER IS AT BEDSIDE. DEMANDING RENAL OR UROLOGIST CONSULT. WILL ASK DR MCFARLAND WHEN HE ROUNDS. PT STILL WITH NO URINE OUTPUT.
--- NOTE | 2016-09-09 08:15 | NUR ---
UPON ENTERING THE ROOM TO DO AM MED PASS, PT FATHER IS SETTING UP HER BREAKFAST TRAY FOR HER. PT IS POINTING TO HER BISCUIT AND SAYING "NO, MORE BUTTER OVER THERE ON THAT SIDE". HER FATHER CONTINUES TO PUT MORE BUTTER AND JELLY ON BISCUIT. GIVEN PT BREAKFAST TRAY TO EAT. THEN PT REPLIES WITH "DADDY MOVE MY LEG TO THE LEFT ABOUT AN INCH!" FATHER DID SO.
--- NOTE | 2016-09-09 08:43 | NUR ---
PT PIV HAS INFILTRATED. DC WITH CATH TIP INTACT. I HAVE CALLED [facility] ACCESS NURSE 3 TIMES WITH NO ANSWER. WILL KEEP TRYING
[2016-09-09 08:58] VITALS: BP 109/71
--- NOTE | 2016-09-09 10:30 | NUR ---
CALLED TO PT ROOM CLAIMS NEED TO GET ON BEDPAN. TOOK COVERS OFF OF PT AND SHE HAS BLEED NOTED TO R ABDOMINAL FOLD FROM EDEMA. BLEEDING SCANT AMOUNT SLOWLY BLEEDING. CLEANED PT UP AND PLACED PT ON THE BED WHITEHEAD. TALKED WITH [facility] NURSE. SHE WILL BE BY TO START IV SOON
--- NOTE | 2016-09-09 11:00 | NUR ---
PT BLEEDING ON R ABDOMINAL FOLD HAS STOPPED COMPLETELY. IN TOTAL ABOUT 10 CC BLOOD LOST.
[2016-09-09 12:00] VITALS: BP 91/38
--- NOTE | 2016-09-09 12:15 | NUR ---
PT BP IS SLIGHTLY LOW. 91/58, PT HAS BEEN LAYING FLAT TO HELP URINE DRAIN TO FRANCIS BAG, AND PT IS UNSYMPTOMATIC AT THIS TIME WILL CONT TO MONITOR
--- NOTE | 2016-09-09 13:56 | NUR ---
HAVE TRIED TO CALL [facility] RN SEVERAL TIMES WITH NO ANSWER.
--- NOTE | 2016-09-09 14:25 | NUR ---
REYES CALZADA SAID THAT [facility] IS STARTING A PICC LINE. AND WILL HEAD THIS WAY FOR SEVERAL PTS SOON. WILL CONT TO WAIT.
--- NOTE | 2016-09-09 14:45 | NUR ---
CALLED DR FERRER OFFICE. SPOKE WITH HIS NURSE MARLEY, SHE IS GOING TO TALK WITH DR PATEL ABOUT DC FLUIDS AND CONSULTING RENAL SINCE DR WALTON GAVE OK THAT FRANCIS IS PATENT, URINE OUTPUT IS JUST LOW. WAITING ON PHONE CALL BACK..
--- NOTE | 2016-09-09 15:05 | NUR ---
PT SITTING UP IN BED SLEEPING NO S/S DISTRESS. FATHER AT BEDSIDE WILL CONT TO MONITOR.
--- NOTE | 2016-09-09 15:28 | NUR ---
[facility] NURSE SITED PT TO R HAND 22G X1 STICK. DRESSING ADHERED TO THE SKIN SWAB CAPS IN USE. SIGNED AND DATED.
[2016-09-09 17:13] VITALS: BP 95/42
[2016-09-09 19:00] VITALS: BP 101/43
--- NOTE | 2016-09-09 23:46 | NUR ---
PT RESTING WELL WITHOUT C/O OR DISTRESS NOTED. NO CHANGES NOTED IN ASSESSMENT. CALL LIGHT WITHIN REACH. WILL CONT TO MONITOR.
--- NOTE | 2016-09-10 00:32 | NUR ---
AT BED SIDE WITH 2 CNAS AND OTHER FLOOR NURSE, BATH AND LINEN CHANGE COMPLETE.
--- NOTE | 2016-09-10 01:58 | NUR ---
REPOSITIONED IN BED FOR COMFORT.
[2016-09-10 04:00] VITALS: BP 102/44
[2016-09-10 05:25] LABS: BASOPHILS 0.6 % (0-2); HEMATOCRIT 26.8 % (36.0-48.0); HEMOGLOBIN 8.3 g/dL (12-16); IMMATURE GRANULOCYTES 5.3 % (0-5); LYMPHOCYTES 9.8 % (15-50); MCH 28.3 pg (26.0-34.0); MCV 91.5 fL (80.0-100.0); MEAN PLATELET VOLUME 9.4 fL (7.4-10.4); MONOCYTES 9.7 % (2-11); NEUTROPHILS 69.6 % (40-80); PLATELET COUNT 407 10x3/uL (130-400); RBC 2.93 10x6/uL (4.00-5.40); RDW 19.3 % (11.5-14.5)
[2016-09-10 05:35] LABS: ANION GAP 19.4 mmol/L (8-16); CALCIUM 8.9 mg/dL (8.5-10.1); CARBON DIOXIDE 17.5 mmol/L (21.0-32.0); CREATININE - SERUM 3.8 mg/dL (0.6-1.3); PHOSPHOROUS 5.4 mg/dL (2.5-4.9); POTASSIUM - SERUM 4.9 mmol/L (3.5-5.1); VANCOMYCIN - RANDOM 18.3 ug/mL (10.0-20.0)
[2016-09-10 08:35] VITALS: BP 121/50
--- NOTE | 2016-09-10 10:08 | NUR ---
PT IN BED. MOD AMOUT OF LOOSE STOOL VIA BEDPAN. SMALL AMOUT OF DARK YELLOW CONCENTRATED URINE IN FOLLEY TUBE. BED CHANGED AND REST OF AM MEDS GIVEN NO S/S OF DISTRESS FAMILY AT BEDSIDE WILL CONTINUE TO MONITOR
[2016-09-10 11:07] VITALS: BP 88/43
--- NOTE | 2016-09-10 14:37 | NUR ---
HAVE BEEN CALLING [facility] SINCE 12:15 FOR MEDICATIONS VANCOMYCIN 500MG AND SODIUM BICARB DRIP. THEY HAVE STILL NOT BROUGHT UP. CALLED [facility] AGAIN AND SPOKE WITH BRIDGER. TOLD HIM THAT MEDICATIONS ARE NOT IN THE [facility], [facility], OR [facility] STILL. HE SAID THAT THEY HAVE BEEN DISPENSED ETC. CHECKED AGAIN JUST TO SAY THEY WERENT THERE. TOLD HIM THEY WERE STILL NOT THERE. BRIDGER HUNG UP. CALLED JAKE AND TOLD HIM WHAT WAS GOING ON, HE SAID HE WOULD TAKE CARE OF IT.
--- NOTE | 2016-09-10 14:57 | NUR ---
PT LETHARGIC, RESPONDS TO VERBAL STIMULI. NO S/S OF DISTRESS. FAMILY IN ROOM WILL CONTINUE TO MONITOR
[2016-09-10 16:00] VITALS: BP 88/42
--- NOTE | 2016-09-10 18:20 | NUR ---
PT LOC HAS DECREASED SHE IS CONFUSED AND LETHARGIC. ORDERS PUT IN FOR BLOODWORK TO DRAW AMONIA. NO S/S OF DISTRESS FAMILY AT BEDSIDE AND CALLLIGHT IN REACH WILL CONTINUE TO MONITOR
[2016-09-10 18:54] LABS: ANION GAP 18.9 mmol/L (8-16); CALCIUM 8.8 mg/dL (8.5-10.1); CARBON DIOXIDE 15.8 mmol/L (21.0-32.0); CREATININE - SERUM 4.2 mg/dL (0.6-1.3); PHOSPHOROUS 5.5 mg/dL (2.5-4.9); POTASSIUM - SERUM 4.7 mmol/L (3.5-5.1)
--- NOTE | 2016-09-10 19:22 | NUR ---
YANET DE OLIVEIRA APN R/T YAMIL OUT PUT OF 25CC WAITING CALL BACK
--- NOTE | 2016-09-10 19:24 | NUR ---
PT HAS BEEN CLEANED AND DOMENICA APPLIED.STILL HAS TREMORS IN HANDS. STILL LETHARGIC. NO S/S OF DISTRESS FAMILY IN ROOM
--- NOTE | 2016-09-10 19:26 | NUR ---
TALKED WITH RONEL ABOUT PT INCREASING CONFUSION DECREASED URINE OUTPUT OF ONLY 25 CC, HIGH AMMONIA AND INCREASING RENAL LABS. SAID TO INCREASE FLUIDS TO 100 CC/HR AND SEE WHAT AM LABS ARE, DONE. COMPLETE BED CHANGE GIVEN. FAMILY NOTIFIED. NIGHT NURSE, CHARGE NURSE, AND HOUSE SUP AWARE OF PT CURRENT CONDITION.
--- NOTE | 2016-09-10 20:00 | NUR ---
PT IN BED WITH HOB UP FOR COMFORT. EYES CLOSED. CHEST RISNING AND FALLING. WEEPING EDEMA. LEFT THIGH DRESSING C/D/I. FSBS ACHS. TELEMETRY. TREMORS. 02 @1.5L VIA N/C. FRANCIS CATH. BED IN LOWEST POSITION AND CALL LIGHT WITHIN REACH.
[2016-09-10 22:50] VITALS: BP 110/45
--- NOTE | 2016-09-10 23:00 | NUR ---
ASSISTED GLUING MACHINE FEEDER'S WITH GIVING PT A BED BATH.
--- NOTE | 2016-09-11 03:41 | NUR ---
PT LYING IN BED RESTING QUIETLY. BED IN LOWEST POSITION AND CALL LIGHT WITHIN REACH.
[2016-09-11 04:00] VITALS: BP 130/50
[2016-09-11 06:50] LABS: HEMATOCRIT 26.4 % (36.0-48.0); HEMOGLOBIN 8.3 g/dL (12-16); IMMATURE GRANULOCYTES 6.3 % (0-5); LYMPHOCYTES 11.2 % (15-50); MCH 28.9 pg (26.0-34.0); MCHC 31.4 g/dL (31.0-37.0); MEAN PLATELET VOLUME 10.2 fL (7.4-10.4); MONOCYTES 8.8 % (2-11); NEUTROPHILS 66.7 % (40-80); PLATELET COUNT 342 10x3/uL (130-400); RBC 2.87 10x6/uL (4.00-5.40); RDW 19.6 % (11.5-14.5); WBC 22.9 10x3/uL (4.8-10.8)
[2016-09-11 07:45] LABS: % SATURATION 42 % (15-55); IRON 45 ug/dl (35-150); TOTAL IRON BIND CAPACITY 105 ug/dl (260-445); UNSAT IRON BIND CAPACITY 60 ug/dl (150-375)
[2016-09-11 07:58] LABS: ANION GAP 18.8 mmol/L (8-16); CARBON DIOXIDE 17.9 mmol/L (21.0-32.0); CREATININE - SERUM 4.4 mg/dL (0.6-1.3); PHOSPHOROUS 5.8 mg/dL (2.5-4.9); POTASSIUM - SERUM 4.7 mmol/L (3.5-5.1); VANCOMYCIN - RANDOM 20.4 ug/mL (10.0-20.0)
--- NOTE | 2016-09-11 08:00 | NUR ---
AM ROUNDS - PT IS AWAKE IN THE BED WITH SIDE RAILS UP X2. BED AT LOWEST POSITION. CALL HAZEL IN USE/REACH. AT BEDSIDE. IV IN RIGHT HAND WITH D5W@100CC/HR. FRANCIS WITH NO DRAINAGE SEEN. LAB CALLED WITH CRITICAL ELEVATED AMMONIA AT 70, COME DOWN FROM YESTERDAY AMMONIA. MONITOR SHOWING SR, HR 59. NO FUTHER NEEDS AT THIS TIME. WILL CONTINUE TO MONITOR.
[2016-09-11 11:52] VITALS: BP 107/52
--- NOTE | 2016-09-11 14:53 | NUR ---
DRESSING CHANGE TO LEFT LEG. LOOSLY PACKS WITH NS 4X4, COVERED WITH DRY 4X4 AND BOARDER5 GAUZE. FATHER IN THE ROOM BEING VERY HATEFUL AND RUDE. WILL CONTINUE TO MONITOR
[2016-09-11 16:00] VITALS: BP 109/49
--- NOTE | 2016-09-11 18:13 | NUR ---
2OCC OF URINE IN FRANCIS FOR THE SHIFT. KWAME PAGED. WAITING HARVEST WORKER BACK
--- NOTE | 2016-09-11 18:21 | NUR ---
TOPHER DE OLIVEIRA APN CALLED BACK AND INFORMED OF URINARY OUTPUT. NEW ORDERS RECEIVED.
[2016-09-11 18:58] LABS: ANION GAP 20.5 mmol/L (8-16); CALCIUM 8.8 mg/dL (8.5-10.1); CARBON DIOXIDE 16.1 mmol/L (21.0-32.0); CREATININE - SERUM 4.7 mg/dL (0.6-1.3); POTASSIUM - SERUM 4.6 mmol/L (3.5-5.1)
[2016-09-11 21:30] VITALS: BP 113/62
[2016-09-12 01:07] VITALS: BP 124/47
[2016-09-12 05:26] VITALS: BP 108/59
[2016-09-12 07:20] LABS: BASOPHILS 0.8 % (0-2); EOSINOPHILS 6.7 % (0-7); HEMATOCRIT 25.7 % (36.0-48.0); HEMOGLOBIN 8.2 g/dL (12-16); IMMATURE GRANULOCYTES 6.7 % (0-5); LYMPHOCYTES 11.3 % (15-50); MCH 28.8 pg (26.0-34.0); MCHC 31.9 g/dL (31.0-37.0); MCV 90.2 fL (80.0-100.0); MEAN PLATELET VOLUME 9.7 fL (7.4-10.4); MONOCYTES 8.5 % (2-11); PLATELET COUNT 350 10x3/uL (130-400); RBC 2.85 10x6/uL (4.00-5.40); RDW 19.7 % (11.5-14.5); WBC 19.9 10x3/uL (4.8-10.8)
[2016-09-12 07:39] LABS: ALBUMIN 1.9 g/dL (3.4-5.0); BILIRUBIN - TOTAL 1.2 mg/dL (0.2-1.3); CALCIUM 8.6 mg/dL (8.5-10.1); CARBON DIOXIDE 18.7 mmol/L (21.0-32.0); CREATININE - SERUM 5.1 mg/dL (0.6-1.3); MAGNESIUM - SERUM 2.1 mg/dL (1.8-2.4); PHOSPHOROUS 6.5 mg/dL (2.5-4.9); POTASSIUM - SERUM 4.7 mmol/L (3.5-5.1); PROTEIN - SERUM 6.8 g/dL (6.4-8.2); VANCOMYCIN - RANDOM 18.9 ug/mL (10.0-20.0)
[2016-09-12 08:00] VITALS: BP 101/44
--- NOTE | 2016-09-12 11:58 | NUR ---
WOUND VAC DRESSING CHANGE WOUND TYPE: OPEN WOUND WOUND LOCATION: LEFT THIGH WOUND AGE IN MONTHS: UNKNOWN DEBRIDEMENT ATTEMPTED IN LAST 10 DAYS? DATE/TYPE: SERIAL DEBRIDEMENTS REQUIRED? MEASUREMENT DATE: 09/12/16 2CM X 4.5CM X 3CM X 5CM 12 TO 12 OCLOCK FULL THICKNESS? YES MUSCLE, TENDON OR BONE EXPOSED? NO UNDERMINING? YES SEE ABOVE TUNNELING/SINUS? NO APPEARANCE OF WOUND BED : FERRARI EXUDATE (AMOUNT, COLOR, ODOR): LARGE, EFRRARI, FOUL ODOR FOAM TYPE: BLACK # OF PIECES USED: 2 PIECES -125MMHG LOW CONTINUOUS EDUCATION: PURPOSE OF WOUND VAC - FATHER VOICED UNDERSTANDING WOUND CARE WILL CONTINUE MONITORING
[2016-09-12 12:00] VITALS: BP 95/42
--- NOTE | 2016-09-12 12:04 | NUR ---
LETHARGIC. AROUSES TO STIMULI. CONSENTS FOR TRIALYSIS CATHETER PLACEMENT SIGNED BY FATHER POA. STERILE GLOVES, US MACHINE, TRIALYSIS TRAYS, AND LIDOCAINE AT BEDSIDE FOR DR. VELASCO. FATHER ASSIST WITH ADLs. DENIES ANY NEEDS. CONTINUE PLAN OF CARE AND SAFETY PRECAUTIONS.
--- NOTE | 2016-09-12 13:40 | NUR ---
ALERT AND ORIENTED X4. PLACED TRIALYSIS CATHETER LT IJ. STAT CHEST XRAY ORDERED PER PROTOCOL. CONTINUE PLAN OF CARE AND SAFETY PRECAUTIONS.
[2016-09-12 16:00] VITALS: BP 99/48
[2016-09-12 19:00] VITALS: BP 113/48
--- NOTE | 2016-09-12 19:45 | NUR ---
PT ASSESSMENT COMPLETE LYING IN BED FOWLERS HOB AT 25 DEGREES PT WITH EYES CLOSED BUT MOANS INTERMITTENLY. WEEPING EDEMA NOTED TO ABDOMEN AND BLE. FRANCIS PATENT TO DARK CONCENTRATED URINE JOSÉ IN COLOR SCANT URINE NOTED TO FRANCIS COLLECTION BAG. PER GRAVITY DRAIN. WOUND VAC NOTED TO LEFT THIGH.
--- NOTE | 2016-09-12 23:29 | OP ---
PATIENT NAME: JANETTE RUSSO MEDICAL RECORD: [id number] :70 LOCATION:D. D.2140 ADMISSION DATE:09/04/16 SURGEON: YENNIFER VELASCO MD DATE OF OPERATION: 09/12/2016 SURGEON: Yennifer Velasco MD. PREOPERATIVE DIAGNOSES: 1. Elevated ammonia. 2. End-stage renal disease. 3. Hyperkalemia. POSTOPERATIVE DIAGNOSES: 1. Elevated ammonia. 2. End-stage renal disease. 3. Hyperkalemia. PROCEDURE PERFORMED: Ultrasound-guided left internal jugular Trialysis catheter placement. ANESTHESIA: Local. COMPLICATIONS: None. SPECIMENS: None. Case was clean. ESTIMATED BLOOD LOSS: 5 cc. OPERATIVE COURSE: After consent was obtained, the patient was placed in the supine position on her hospital bed. The left neck and chest were prepped and draped in the typical sterile fashion. A timeout was taken to confirm the correct patient and procedure. Local anesthetic was injected into the left neck. The ultrasound probe was used to identify the left internal jugular vein. With the ultrasound probe in place, the left internal jugular vein was cannulated under ultrasound guidance. Blood was aspirated. A wire was placed and the needle was removed. The skin was incised with an 11-blade scalpel. The dilator was passed over the wire in a standard Seldinger fashion. The Trialysis catheter was then passed over the wire in standard Seldinger fashion. The wire was removed. All 3 ports were aspirated and flushed. Catheter was secured to the skin with a 2-0 nylon suture and a sterile Tegaderm dressing. At the end of procedure, all needle and instrument counts were correct. No complications occurred. Immediate postoperative chest x-ray was performed. TRANSINT:[id number] Voice Confirmation ID: [id number] DOCUMENT ID: [id number] OPERATIVE REPORT [id number] JANETTE RUSSO YENNIFER VELASCO MD at 0289 CC: [id number] DICTATION DATE: 09/12/16 1350 VBA DEVELOPER: 09/12/162131 ADM IN [facility] [address] [place] [address]
[2016-09-13] VITALS: BP 109/46
--- NOTE | 2016-09-13 01:14 | NUR ---
NURSE ROUNDS 09/12/16 22:15 - PT LYING IN BED, EYES CLOSED, RESPIRATIONS EVEN AND UNLABORED. PT MOANS FREQUENTLY, DEMONSTRATES CONFUSION WHEN ROUSED, ROUSABLE TO TOUCH, PULLING O2 OFF, PULLING TELEMETRY LEADS, HARD TO REORIENT AT THIS TIME. CONTINUE TO MONITOR CLOSELY.
--- NOTE | 2016-09-13 02:51 | NUR ---
PT CALLED FOR PRN PAIN MEDICATION, GIVEN WITH APPLESAUCE. PT HAD NO DIFFICULTY SWALLOWING WITH APPLESAUCE. PT IS CONFUSED, BUT MORE ALERT AT THIS TIME. CONTINUE TO MONITOR CLOSELY.
[2016-09-13 04:00] VITALS: BP 123/63
--- NOTE | 2016-09-13 04:44 | NUR ---
BED BATH GIVEN PER STAFF PATTED DRY IN ALL CREASES AND NYSTATIN POWDER APPLIED PER ORDER REINFORCED DRESSING TO WOUND VAC AFTER BATH TO STOP LEAKING.
--- NOTE | 2016-09-13 05:35 | NUR ---
PT LYING IN BED, EYES CLOSED, EVEN BUT LABORED. PT IS ROUSABLE TO VERBAL STIMULI, IS TALKING BUT NOT MAKING ANY SENSE. AM LABS DRAWN AND TAKEN TO LAB. CONTINUE TO MONITOR CLOSELY.
[2016-09-13 05:37] LABS: BASOPHILS 0.9 % (0-2); EOSINOPHILS 6.1 % (0-7); HEMATOCRIT 24.2 % (36.0-48.0); HEMOGLOBIN 7.7 g/dL (12-16); IMMATURE GRANULOCYTES 6.4 % (0-5); LYMPHOCYTES 10.4 % (15-50); MCH 28.7 pg (26.0-34.0); MCHC 31.8 g/dL (31.0-37.0); MCV 90.3 fL (80.0-100.0); MEAN PLATELET VOLUME 9.8 fL (7.4-10.4); MONOCYTES 9.6 % (2-11); NEUTROPHILS 66.6 % (40-80); PLATELET COUNT 342 10x3/uL (130-400); RBC 2.68 10x6/uL (4.00-5.40); RDW 19.7 % (11.5-14.5); WBC 19.1 10x3/uL (4.8-10.8)
[2016-09-13 05:59] LABS: ANION GAP 18.2 mmol/L (8-16); CALCIUM 8.7 mg/dL (8.5-10.1); CARBON DIOXIDE 18.5 mmol/L (21.0-32.0); CREATININE - SERUM 5.1 mg/dL (0.6-1.3); PHOSPHOROUS 6.4 mg/dL (2.5-4.9); POTASSIUM - SERUM 4.7 mmol/L (3.5-5.1); VANCOMYCIN - RANDOM 16.2 ug/mL (10.0-20.0)
[2016-09-13 08:17] VITALS: BP 94/50
--- NOTE | 2016-09-13 09:59 | CN ---
PATIENT NAME:JANETTE RUSSO MEDICAL RECORD: [id number] : 70 LOCATION:[facility] D.2140 ADMIT DATE: 09/04/16 ACCOUNT: [id number] CONSULTING PHYSICIAN: YENNIFER VELASCO MD REFERRING PHYSICIAN: YENNIFER BIRCH MD DATE OF CONSULTATION: 09/12/2016 Surgical Consultation CHIEF COMPLAINT: End-stage renal disease. HISTORY OF PRESENT ILLNESS: All history was obtained through chart review and discussion with the patient's father. The patient has altered mental status from a hyperammonemia level and end-stage renal disease. She is a poor historian. This is a 46-year-old female who I have previously seen in my clinic for a weight loss surgery. She was admitted approximately 1 week ago from a care home for altered mental status and hyperammonemia level as well as hyperkalemia and renal failure. She has been there for several days. Her renal failure has failed to improve during that time. She is now requiring hemodialysis and needs dialysis access. PAST MEDICAL HISTORY: Significant for severe morbid obesity, depression, diabetes, pulmonary hypertension, hyperlipidemia, hypothyroidism, hypertension. PAST SURGICAL HISTORY: Cholecystectomy, bilateral ankle fracture repairs, bilateral left hip replacement. FAMILY HISTORY: Cancer, obesity and hypertension. SOCIAL HISTORY: Single. She is disabled. Former smoker. No alcohol use. The patient is completely bedbound, living in care home. ALLERGIES: DYAZIDE, HYDROCHLOROTHIAZIDE, SULFA, TRIAMTERENE. MEDICATIONS: Please see electronic medical report for full list of inpatient medications. REVIEW OF SYSTEMS: A 10-point review of systems was unobtainable secondary to the patient's altered mental status. PHYSICAL EXAMINATION: VITAL SIGNS: Temperature 97.7, heart rate 60, respiratory rate 18, blood pressure 95/42, satting 100% on 2 L nasal cannula. GENERAL: This is a morbidly obese female. She is alert, responsive, but confused. EYES: Extraocular muscles are intact. EAR, NOSE AND THROAT: Mucous membranes are dry. Poor dentition. NECK: Supple. No JVD. CARDIOVASCULAR: Normal sinus rhythm. LUNGS: Decreased breath sounds bilaterally. ABDOMEN: Soft, nontender, and nondistended. SKIN: Warm and dry, there are multiple areas in the perineum that are open and draining. EXTREMITIES: She has got 4+ edema. CONSULT REPORT [id number] JANETTE RUSSO LABORATORY DATA: Please see electronic medical record for full list of laboratory data. Labs reviewed today includes CBC, chemistry. Chest x-ray from yesterday reveals cardiomegaly and hypoinflated lungs. IMPRESSION: A 46-year-old female with acute renal failure, hyperkalemia and hyperammonemia levels requiring hemodialysis. Case was discussed with the patient's father. PLAN: Risks and benefits were discussed with the patient's father, consent was obtained. We will place an urgent left internal jugular Trialysis line for hemodialysis access. Immediate post-procedure chest x-ray. TRANSINT:[id number] Voice Confirmation ID: [id number] DOCUMENT ID: [id number] YENNIFER VELASCO MD at 0959 CC: [id number] DICTATION DATE: 09/12/16 1348 HOUSE SUPERVISOR: 09/12/162037 ADM IN [facility] [address] [id number]
[2016-09-13 11:17] LABS: HEPATITIS C ANTIBODY <0.1 (0.0-0.9)
--- NOTE | 2016-09-13 13:19 | NUR ---
Nutrition follow-up: Diet: ADA consistent CHO PO intake has been ~72% average of last 9 meals; due to confusion now, pts po intake is decreasing. Dialysis is soon to start Multiple loose BM's charted Labs reviewed Wt: 521# Will continue to provide food choices with selective menus. Due to elevated PO4, will need to change diet order to renal ADA. RDN following.
--- NOTE | 2016-09-13 17:17 | NUR ---
LETHARGIC. AROUSES TO STIMULI. LINENS SOILED FROM WHEEPING PITTING EDEMA. LINEN CHANGE COMPLETE. WAITING FOR DIALYSIS TREATMENT AND PRBC TRANSFUSION DURING DIALYSIS. FAMILY AT BEDSIDE. SINUS RHTHYM 64bpm ON TELEMETRY. WOUND VAC INTACT NO AIR LEAKS. EDEMA WORSENING. CONTINUE PLAN OF CARE. BED LOCKED AND LOW. CALL LIGHT IN REACH. TWO SIDERAILS UP.
--- NOTE | 2016-09-13 18:35 | NUR ---
LETHARGIC. AROUSES TO STIMULI. RECIEVING DIALYSIS AT BEDSIDE. 2 UNITS OF PRBC TRANSFUSE ON DIALYSIS. CONTINUE PLAN OF CARE AND SAFETY PRECAUTIONS. PREPARE SHIFT CHANGE REPORT.
--- NOTE | 2016-09-13 19:33 | NUR ---
PT LYING IN BED, DYALIZING NOW, TOLERATING WELL. FATHER AND BROTHER AT BEDSIDE. PT IS RESTLESS, BUT IN NO ACUTE DISTRESS AT THIS TIME. CONTINUE TO MONITOR CLOSELY.
[2016-09-13 19:41] VITALS: BP 127/73
--- NOTE | 2016-09-13 21:46 | NUR ---
TRYING TO ADMINISTER PATIENTS 21:00 MEDICATIONS, BUT PT WILL NOT STAY AWAKE LONG ENOUGH TO TAKE THEM SAFELY AND SWALLOW EFFECTIVELY. WILL HOLD AND CONTINUE TO MONITOR CLOSELY.
[2016-09-13 23:26] VITALS: BP 120/58
--- NOTE | 2016-09-14 02:51 | NUR ---
PT LYING IN BED, STILL DIFFICULT TO ROUSE WITH VERBAL STIMULI, WILL WAKE FOR A SHORT TIME AND IMMEDIATELY FALL BACK TO SLEEP. PT DEMONSTRATES INCREASED CONFUSION AND CONTINUES TO PULL HER O2 VIA NC OFF, CANNOT BE REDIRECTED OR REORIENTED AT THIS TIME. CONTINUE TO MONITOR CLOSELY.
[2016-09-14 03:24] VITALS: BP 142/58
--- NOTE | 2016-09-14 04:25 | NUR ---
PROTOCOL MANAGER ALONG WITH 4 OTHER STAFF MEMBERS AT BED SIDE, BATH AND LINEN CHANGE COMPLETE. WOUND VAC TO LEFT THIGH DRAINING, NO MARKINGS NOTED ON CANNISTER FOR MEASUREMENTS FROM PREVIOUS SHIFT, MARKED WITH BLACK MARKER TO NOTIFY DAY SHIFT NURSE OF HOW MUCH HAD BEED DRAININED PREVIOUSLY, WILL CONT TO MONITOR.
[2016-09-14 05:53] LABS: BASOPHILS 1.1 % (0-2); EOSINOPHILS 5.6 % (0-7); IMMATURE GRANULOCYTES 6.4 % (0-5); LYMPHOCYTES 9.5 % (15-50); MCH 28.7 pg (26.0-34.0); MCV 89.8 fL (80.0-100.0); MONOCYTES 8.8 % (2-11); NEUTROPHILS 68.6 % (40-80); PLATELET COUNT 349 10x3/uL (130-400); WBC 18.6 10x3/uL (4.8-10.8)
[2016-09-14 06:05] LABS: HEMATOCRIT 29.1 % (36.0-48.0); HEMOGLOBIN 9.3 g/dL (12-16); RBC 3.24 10x6/uL (4.00-5.40)
[2016-09-14 06:13] LABS: CALCIUM 8.5 mg/dL (8.5-10.1); CARBON DIOXIDE 20.1 mmol/L (21.0-32.0); CREATININE - SERUM 4.5 mg/dL (0.6-1.3); POTASSIUM - SERUM 4.1 mmol/L (3.5-5.1)
[2016-09-14 08:00] VITALS: BP 119/46
--- NOTE | 2016-09-14 10:21 | NUR ---
WOUND VAC DRESSING CHANGE WOUND TYPE: CHRONIC OPEN WOUND WOUND LOCATION: LEFT THIGH WOUND AGE IN MONTHS: WEEKS DEBRIDEMENT ATTEMPTED IN LAST 10 DAYS? DATE/TYPE: N/A SERIAL DEBRIDEMENTS REQUIRED? N/A MEASUREMENT DATE: 09/14/16 5.5CM X 9CM X 2.3CM X 5.2CM @ 4 OCLOCK X 4.7CM @ 5 OCLOCK X 1.5CM FROM 6-3 OCLOCK MEASUREMENTS INCLUDE NECROTIC TISSUE THAT IS DEVELOPING ON PERIWOUND FULL THICKNESS? YES MUSCLE, TENDON OR BONE EXPOSED? NO UNDERMINING? YES TUNNELING/SINUS? YES APPEARANCE OF WOUND BED : PINK WITH BROWN NECROTIC TISSUE EXUDATE (AMOUNT, COLOR, ODOR): LARGE SEROUS FOUL ODOR FOAM TYPE: WHITE # OF PIECES USED:2 PIECES IN TUNNELS FOAM TYPE: BLACK # OF PIECES USED:3 PIECES EDUCATION: DISCUSSED WITH FATHER, PURPOSE OF WOUND VAC AND WHEN DRESSING CHANGES ARE DONE. HE VOICED UNDERSTANDING. -125MMHG MOD CONTINUOUS PT TOLERATED WELL.
[2016-09-14 12:00] VITALS: BP 105/53
--- NOTE | 2016-09-14 12:30 | NUR ---
ALERT AND ORIENTED X4. ACTIVELY VOMITING IN BED. NO ZOFRAN ON MAY. CALL FOR ZOFRAN ORDER. ASSIST BATHING AND CHANGING LINENS. SINUS RHTHYM 75bpm ON TELEMETRY. CONTINUE PLAN OF CARE. FAMILY AT BEDSIDE. LT IJ TRIALYSIS CATH DRESSING CHANGED. RECIEVES LOVENOX INJ. WOUND VAC CHANGED BY WOUND CARE NURSE. BED LOCKED AND LOW. CALL LIGHT IN REACH. TWO SIDERAILS UP.
--- NOTE | 2016-09-14 15:23 | NUR ---
RECIEVING DIALYSIS TREATMENT AT BEDSIDE.
[2016-09-14 20:04] VITALS: BP 128/55
--- NOTE | 2016-09-14 21:43 | NUR ---
HS MEDS GIVEN WITH PTS DR CAMPBELL, BS 168, COVERED PER S/S. PT DENIES NEEDS AT THIS TIME, WILL CONT TO MONITOR.
--- NOTE | 2016-09-14 23:41 | NUR ---
RESTING WITH EYES CLOSED, RESPERATIONS EVEN, NO S/S DISTRESS NOTED.
[2016-09-14 23:53] VITALS: BP 96/45
--- NOTE | 2016-09-15 02:59 | NUR ---
NORCO 1 TAB GIVEN FOR C/O PAIN, RATES PAIN AT AN 8 ON PAIN SCALE.
[2016-09-15 03:47] VITALS: BP 117/50
[2016-09-15 05:07] LABS: BASOPHILS 1.1 % (0-2); EOSINOPHILS 4.8 % (0-7); HEMOGLOBIN 9.4 g/dL (12-16); IMMATURE GRANULOCYTES 5.5 % (0-5); LYMPHOCYTES 9.8 % (15-50); MCH 29.2 pg (26.0-34.0); MCHC 32.4 g/dL (31.0-37.0); MCV 90.1 fL (80.0-100.0); MEAN PLATELET VOLUME 9.6 fL (7.4-10.4); MONOCYTES 9.3 % (2-11); NEUTROPHILS 69.5 % (40-80); PLATELET COUNT 326 10x3/uL (130-400); RBC 3.22 10x6/uL (4.00-5.40); RDW 20.2 % (11.5-14.5); WBC 19.7 10x3/uL (4.8-10.8)
[2016-09-15 05:38] LABS: ALBUMIN 1.7 g/dL (3.4-5.0); ANION GAP 17.3 mmol/L (8-16); BILIRUBIN - TOTAL 1.2 mg/dL (0.2-1.3); CALCIUM 8.1 mg/dL (8.5-10.1); CARBON DIOXIDE 20.8 mmol/L (21.0-32.0); POTASSIUM - SERUM 4.1 mmol/L (3.5-5.1); PROTEIN - SERUM 6.2 g/dL (6.4-8.2)
--- NOTE | 2016-09-15 07:29 | NUR ---
AM ROUNDING DONE WITH PATIENT IN GOOD SPIRITS, STATES THAT SHE IS FEELING MUCH BETTER. DAD AT BEDSIDE. LEFT IJ TRIALYSIS SEEN WITH DRY INTACT DRESSING. ON HEART MONITOR SHOWING SR, HR 63. FRANCIS CATH PATENT WITH CLEAR CONCENTRATED URINE. ON BIG BOY BED. WOUND VAC SEEN TO LEFT THIGH WITH NO LEAK SEEN TO DEVICE. ON 2L PER NC.
[2016-09-15 08:04] VITALS: BP 119/48
--- NOTE | 2016-09-15 10:02 | NUR ---
0918-IN ROOM DIALYSIS BEING SET UP
[2016-09-15 11:44] VITALS: BP 102/49
--- NOTE | 2016-09-15 11:51 | NUR ---
Patient Name: JANETTE RUSSO Encounter No: [id number] : 1970 Primary Insurance: MEDICAID [facility] [place] Date: Planned Disposition: Nursing Facility [facility] External Planned Provider: [facility], LONG TERM MEDICAID BED DCP follow-up note: CM RECEIVED CALL FROM BARB, CLINICAL LIAISON FOR [facility], WHO INFORMED CM THAT PT CANNOT RETURN TO [facility] IF SHE REQUIRES OUTPATIENT DIALYSIS; PT IS AMBULANCE TRANSPORT. CM FAXED CLINICAL UPDATE TO [facility] VIA [facility]B AT [phone]. PT PLANS TO RETURN TO [facility] FOR CLIENT ONBOARDING ANALYST CARE AT DISCHARGE. THE [facility] CANNOT ACCEPT BACK IF PT REQUIRES OUTPATIENT HEMODIALYSIS DUE TO TRANSPORTATION ISSUES/COSTS. Adriel Kramer, CASE MANAGEMENT
--- NOTE | 2016-09-15 13:01 | NUR ---
Mrs. Escobar had bedside hemodialysis today from 1005 until 1235 via her left IJ Trialysis catheter. Blood flow was 300mls/minute. Net fluid removed was 2000 mls. Pt. ran a little hypotensive but never dropped below 100 systolic. Post vital signs were: B/P: 107/54, HR: 68, Temp: 97.6, Resps: 16. Heparin dose increased per Dr. Myers due to clots building yesterday. UF increased per verbal orders as well.
--- NOTE | 2016-09-15 13:21 | NUR ---
CALLED AND SPOKE WITH NOELLE AT DR MCFARLAND OFFICE TO SEE ABOUT RESUMING NORCO 10 MG. AWAITING CALL BACK.
--- NOTE | 2016-09-15 13:37 | NUR ---
NEW ORDERS RECIEVED PER DR MCFARLAND.
--- NOTE | 2016-09-15 13:57 | NUR ---
1344-NORCO 10 MG GIVEN PER REQUEST FOR LEG PAIN.
[2016-09-15 16:00] VITALS: BP 102/40
[2016-09-15 19:00] VITALS: BP 111/47
--- NOTE | 2016-09-15 20:13 | NUR ---
SHIFT ROUNDS - PT IS AWAKE AND ALERT IN BED. O2 AT 2L VIA NC. LEFT IJ TRIALYSIS, SL. WOUND VAC TO LEFT THIGH. MONITOR SHOWING SR, HR 69. BED AT LOWEST POSITION, SIDE RAILS ARE PADDED AND UP X2. PT HAS A FRANCIS THAT IS DRAINING DARK, CONCENTRADED URINE. NO NEEDS AT THIS TIME. WILL CONTINUE TO MONITOR
[2016-09-16] VITALS: BP 146/63
--- NOTE | 2016-09-16 01:02 | NUR ---
CALL LIGHT IN REACH, WILL CONTINUE WITH PLAN OF CARE.
[2016-09-16 04:00] VITALS: BP 139/62
[2016-09-16 06:27] LABS: BASOPHILS 0.8 % (0-2); EOSINOPHILS 4.4 % (0-7); HEMATOCRIT 28.3 % (36.0-48.0); IMMATURE GRANULOCYTES 4.6 % (0-5); LYMPHOCYTES 9.5 % (15-50); MCH 29.1 pg (26.0-34.0); MCHC 31.8 g/dL (31.0-37.0); MCV 91.6 fL (80.0-100.0); MEAN PLATELET VOLUME 10.3 fL (7.4-10.4); MONOCYTES 11.2 % (2-11); NEUTROPHILS 69.5 % (40-80); PLATELET COUNT 314 10x3/uL (130-400); RBC 3.09 10x6/uL (4.00-5.40); RDW 20.7 % (11.5-14.5); WBC 19.1 10x3/uL (4.8-10.8)
[2016-09-16 06:42] LABS: ALBUMIN 1.5 g/dL (3.4-5.0); ANION GAP 13.1 mmol/L (8-16); BILIRUBIN - TOTAL 1.09 mg/dL (0.2-1.3); CALCIUM 8.3 mg/dL (8.5-10.1); CARBON DIOXIDE 25.5 mmol/L (21.0-32.0); CREATININE - SERUM 3.8 mg/dL (0.6-1.3); POTASSIUM - SERUM 3.6 mmol/L (3.5-5.1); PROTEIN - SERUM 6.4 g/dL (6.4-8.2)
--- NOTE | 2016-09-16 07:32 | NUR ---
AM ROUNDS AT THIS TIME, PT IN BED, WITH EYES CLOSED, CALL LIGHT IN REACH, DAD AT BEDSIDE. NAD NOTED, CALL LIGHT IN REACH, WILL CONTINUE TO MONITOR.
[2016-09-16 08:00] VITALS: BP 107/40
--- NOTE | 2016-09-16 09:08 | NUR ---
ADMINISTERED MORNING MEDICATIONS. PT IN BED, DENIES ANY NEEDS AT THIS TIME. DAD AT BEDSIDE, NAD NOTED, CALL LIGHT IN REACH, WILL CONTINUE TO MONITOR.
--- NOTE | 2016-09-16 10:17 | NUR ---
Nutrition Consult: Consult received for Renal ADA diet education. Spoke with pt and father regarding K+, Phos, Na, fluid in diet. Provided pt and father with written information. Encouraged pt compliance with diet and pt stated that she wanted to make changes to improve her health. Pt and father were encouraged to contact RD with any questions/concerns. Thank you for the consult. RD will continue to monitor pt progress.
--- NOTE | 2016-09-16 10:49 | NUR ---
NORCO 10MG GIVEN FOR PAIN LEVEL OF 4/10. BLOOD SUGAR OF 140, NO COVERAGE NEEDED PER S/S. THROAT CULTURE COLLECTED AT THIS TIME AND TAKEN TO LAB. PT DENIES ANY OTHER NEED AT THIS TIME. CALL LIGHT IN REACH, NAD NOTED, WILL CONTINUE TO MONITOR.
--- NOTE | 2016-09-16 11:53 | NUR ---
WOUND VAC DRESSING CHANGE WOUND TYPE: chronic open wound WOUND LOCATION: left thigh WOUND AGE IN MONTHS: DEBRIDEMENT ATTEMPTED IN LAST 10 DAYS? DATE/TYPE: SERIAL DEBRIDEMENTS REQUIRED? MEASUREMENT DATE: 09/16/16 5.5cm x 9cm x 3cm x 6.5cm @ 4 oclock x 7.5cm @ 5 oclock x 3.5cm from 6-7 oclock FULL THICKNESS? yes MUSCLE, TENDON OR BONE EXPOSED? no UNDERMINING? yes TUNNELING/SINUS? yes APPEARANCE OF WOUND BED : pale pink with necrotic metzger wound bed EXUDATE (AMOUNT, COLOR, ODOR): moderate serous with foul odor FOAM TYPE: white # OF PIECES USED: 2 pieces in tunnels FOAM TYPE: black # OF PIECES USED: 2 pieces EDUCATION: negative pressure dressings -125mmhg mod continuous
[2016-09-16 12:00] VITALS: BP 102/36
[2016-09-16 16:00] VITALS: BP 101/47
--- NOTE | 2016-09-16 17:52 | NUR ---
ADMINISTERED NORCO 10MG FOR PAIN LEVEL OF 5/10. PT IN BED, DENIES ANY NEEDS AT THIS TIME. CALL LIGHT IN REACH, NAD NOTED, WILL CONTINUE TO MONITOR.
--- NOTE | 2016-09-16 18:51 | NUR ---
PT RECEIVED LYING IN BED AAOX3 WATCHING TV AT THIS TIME. ASSESSMENT COMPLETED PER FLOW SHEET. PT REQUESTS ICE. DENIES OTHER NEEDS. BED LOW. PHONE AND CALL LIGHT IN REACH. SRX2.
[2016-09-16 19:00] VITALS: BP 118/43
--- NOTE | 2016-09-16 23:48 | NUR ---
PT SITTING UP IN BED WATCHING TV AT THIS TIME. DENIES NEEDS. BED LOW. PHONE AND CALL LIGHT IN REACH. SRX2.
[2016-09-17] VITALS: BP 106/46
--- NOTE | 2016-09-17 00:54 | NUR ---
PT RESTING QUIETLY AT THIS TIME WITH EYES CLOSED. RESPIRATIONS EVEN, NON-LABORED. NO ACUTE DISTRESS NOTED AT THIS TIME. BED LOW. PHONE AND CALL LIGHT IN REACH. SRX2.
[2016-09-17 05:06] LABS: EOSINOPHILS 4.4 % (0-7); HEMATOCRIT 27.9 % (36.0-48.0); HEMOGLOBIN 8.7 g/dL (12-16); IMMATURE GRANULOCYTES 3.9 % (0-5); LYMPHOCYTES 8.7 % (15-50); MCH 28.9 pg (26.0-34.0); MCHC 31.2 g/dL (31.0-37.0); MCV 92.7 fL (80.0-100.0); MEAN PLATELET VOLUME 9.8 fL (7.4-10.4); MONOCYTES 10.3 % (2-11); NEUTROPHILS 71.7 % (40-80); PLATELET COUNT 273 10x3/uL (130-400); RBC 3.01 10x6/uL (4.00-5.40); RDW 20.7 % (11.5-14.5); WBC 18.4 10x3/uL (4.8-10.8)
--- NOTE | 2016-09-17 05:17 | NUR ---
PT RESTING QUIETLY AT THIS TIME WITH EYES CLOSED. AROUSED EASILY. FSBS 139 AT THIS TIME. DENIES NEEDS. BED LOW. PHONE AND CALL LIGHT IN REACH. SRX2.
[2016-09-17 05:23] LABS: CALCIUM 8.1 mg/dL (8.5-10.1); CARBON DIOXIDE 26.5 mmol/L (21.0-32.0); CREATININE - SERUM 3.8 mg/dL (0.6-1.3); PHOSPHOROUS 4.7 mg/dL (2.5-4.9); POTASSIUM - SERUM 3.5 mmol/L (3.5-5.1)
--- NOTE | 2016-09-17 06:19 | NUR ---
AM MEDS GIVEN AT THIS TIME WELL COMPLETE BED BATH. PT DENIES NEEDS. BED LOW. PHONE AND CALL LIGHT IN REACH. SRX2.
--- NOTE | 2016-09-17 07:54 | NUR ---
PT IS RESTING IN BED, FAMILY AT BEDSIDE. PT HAD COMPLETE BED BATH THIS AM. PT WOUND VAC CDI AND FRANCIS IS PATENT. PT DENEIS NEEDS AT THIS TIME. SHERYL.
[2016-09-17 08:00] VITALS: BP 101/49
--- NOTE | 2016-09-17 10:53 | NUR ---
PT PLACED ON TEMPORARY DROPLET ISOLATION UNTIL STAPH RULED OUT.
--- NOTE | 2016-09-17 11:19 | NUR ---
PT FSBS 134. NO INSULIN GIVEN AT THIS TIME. PT CURRENTLY IN DIALYSIS.
[2016-09-17 12:00] VITALS: BP 115/51
--- NOTE | 2016-09-17 14:49 | NUR ---
PT HAD LARGE LOOSE BM. PT CLEANED AND BEDDING CHANGED. NYSTATIN APPLIED. PT REQUESTED AND REC'D PAIN MEDICATION. WCTM.
[2016-09-17 16:00] VITALS: BP 111/51
[2016-09-17 19:00] VITALS: BP 94/49
--- NOTE | 2016-09-18 02:00 | NUR ---
RECIEVED PATIENT AND REPORT , ALERT AND ORIENTED, SIDERAILS UP X 2 , CALL LIGHT AND BEDSIDE TABLE IN REACH, BED LOW AND LOCKED, PRN NORCO GIVEN AT 2054 FOR PAIN, NO ACUTE DISTRESS NOTED, CPOC.
[2016-09-18 04:00] VITALS: BP 109/51
[2016-09-18 06:44] LABS: BASOPHILS 0.9 % (0-2); EOSINOPHILS 2.2 % (0-7); HEMATOCRIT 28.4 % (36.0-48.0); HEMOGLOBIN 8.7 g/dL (12-16); IMMATURE GRANULOCYTES 2.4 % (0-5); LYMPHOCYTES 6.7 % (15-50); MCH 28.3 pg (26.0-34.0); MCHC 30.6 g/dL (31.0-37.0); MCV 92.5 fL (80.0-100.0); MEAN PLATELET VOLUME 10.1 fL (7.4-10.4); MONOCYTES 8.5 % (2-11); NEUTROPHILS 79.3 % (40-80); PLATELET COUNT 271 10x3/uL (130-400); RBC 3.07 10x6/uL (4.00-5.40); RDW 20.5 % (11.5-14.5); WBC 23.5 10x3/uL (4.8-10.8)
[2016-09-18 07:01] LABS: ANION GAP 12.1 mmol/L (8-16); CALCIUM 8.1 mg/dL (8.5-10.1); CARBON DIOXIDE 26.1 mmol/L (21.0-32.0); CREATININE - SERUM 3.8 mg/dL (0.6-1.3); PHOSPHOROUS 4.2 mg/dL (2.5-4.9); POTASSIUM - SERUM 3.2 mmol/L (3.5-5.1)
[2016-09-18 08:00] VITALS: BP 111/56
[2016-09-18 12:00] VITALS: BP 101/46
[2016-09-18 16:00] VITALS: BP 105/51
--- NOTE | 2016-09-18 20:03 | NUR ---
RESUMED CARE OF PT, LYING IN BED WITH EYES CLOSED RESPIRATIONS EVEN AND UNLABORED ON 2LPM VIA NC. 90 SR WITH BBB ON TELEMETRY. FRANCIS TO GRAVITY. CALL LIGHT IN REACH. LEFT IJ SALINE LOCKED. NO NEEDS NOTED AT THIS TIME. SEE NURSE ASSESSMENT.
[2016-09-18 20:36] VITALS: BP 118/51
[2016-09-18 23:59] VITALS: BP 127/53
--- NOTE | 2016-09-19 00:49 | NUR ---
BED BATH AND LINENS CHANGED, NYSTATIN APPLIED TO AFFECTED AREAS. APPOXIMATELY 1 BOTTLE OF NYSTATIN IS NEEDED TO CORRECTLY MEDICATE AFFECTED AREAS. FRANCIS CARE PROVIDED. BARRIER SPRAY APPLIED TO BOTTOM. REPOSITIONED FOR COMFORT. CALL LIGHT IN REACH.
[2016-09-19 04:00] VITALS: BP 116/51
[2016-09-19 05:13] LABS: EOSINOPHILS 3.1 % (0-7); HEMATOCRIT 28.7 % (36.0-48.0); HEMOGLOBIN 9.3 g/dL (12-16); IMMATURE GRANULOCYTES 2.3 % (0-5); LYMPHOCYTES 10.6 % (15-50); MCH 29.7 pg (26.0-34.0); MCHC 32.4 g/dL (31.0-37.0); MCV 91.7 fL (80.0-100.0); MEAN PLATELET VOLUME 9.8 fL (7.4-10.4); PLATELET COUNT 246 10x3/uL (130-400); RBC 3.13 10x6/uL (4.00-5.40); RDW 20.5 % (11.5-14.5); WBC 18.8 10x3/uL (4.8-10.8)
[2016-09-19 05:25] LABS: ANION GAP 13.8 mmol/L (8-16); CALCIUM 8.3 mg/dL (8.5-10.1); CARBON DIOXIDE 23.5 mmol/L (21.0-32.0); CREATININE - SERUM 4.3 mg/dL (0.6-1.3); POTASSIUM - SERUM 3.3 mmol/L (3.5-5.1)
[2016-09-19 08:23] VITALS: BP 109/55
[2016-09-19 12:21] VITALS: BP 130/62
--- NOTE | 2016-09-19 13:23 | NUR ---
DIALYSIS COMPLETE. 3L TAKEN OFF DURING DIALYSIS. ALERT AND ORIENTED X4. FRANCIS DRAINING AT BEDSIDE BY GRAVITY. URINE CONCENTRATED. 10mL OUTPUT SINCE 629. SINUS RHTHYM 78bpm ON TELEMETRY. DENIES ANY NEEDS. FAMILY AT BEDSIDE. BED LOCKED AND LOW. CALL LIGHT IN REACH. TWO SIDERAILS UP. RECIEVES LOVENOX INJ. NO SCDs.
--- NOTE | 2016-09-19 15:24 | NUR ---
WOUND VAC DRESSING CHANGE WOUND TYPE: CHRONIC OPEN WOUND WOUND LOCATION: LEFT THIGH WOUND AGE IN MONTHS:WEEK DEBRIDEMENT ATTEMPTED IN LAST 10 DAYS? DATE/TYPE: NO SERIAL DEBRIDEMENTS REQUIRED?N/A MEASUREMENT DATE: 09/19/16 5.5CM X 7CM X 7CM X 6CM AT 4 OCLOCK X 5.5CM FROM 5-7 OCLOCK FULL THICKNESS? YES MUSCLE, TENDON OR BONE EXPOSED? NO UNDERMINING? YES TUNNELING/SINUS? YES APPEARANCE OF WOUND BED : FERRARI, BROWN EXUDATE (AMOUNT, COLOR, ODOR): MODERATE SEROPURULENT - FOUL ODOR FOAM TYPE: WHITE # OF PIECES USED: 2 PIECES FOAM TYPE: BLACK # OF PIECES USED: 1 PIECE -125MMHG MOD CONTINUOUS PT TOLERATED WELL.
[2016-09-19 17:03] VITALS: BP 125/60
[2016-09-19 21:16] VITALS: BP 108/38
--- NOTE | 2016-09-19 23:11 | NUR ---
NURSE ROUNDS 21:45 - PT LYING IN BED, EYES CLOSED, RESPIRATIONS EVEN AND UNLABORED. PT IS EASILY ROUSABLE TO VERBAL STIMULI, DENIES ANY NEEDS. CONTINUE TO MONITOR CLOSELY.
[2016-09-19 23:55] VITALS: BP 112/42
--- NOTE | 2016-09-20 00:55 | NUR ---
PT AWAKE, ALERT, ORIENTED, DENIES ANY NEEDS. BED BATH GIVEN, LINEN AND GOWN CHANGE WELL. PT TOLERATED WELL, WAS ABLE TO HELP. CONTINUE TO MONITOR CLOSELY. BED LOW, CALL LIGHT IN REACH, SIDE RAILS X 2, HOB 40 DEGREES.
[2016-09-20 03:56] VITALS: BP 115/60
[2016-09-20 05:56] LABS: BASOPHILS 1.4 % (0-2); EOSINOPHILS 4.4 % (0-7); HEMATOCRIT 29.5 % (36.0-48.0); HEMOGLOBIN 9.4 g/dL (12-16); IMMATURE GRANULOCYTES 2.9 % (0-5); LYMPHOCYTES 11.2 % (15-50); MCH 29.1 pg (26.0-34.0); MCHC 31.9 g/dL (31.0-37.0); MCV 91.3 fL (80.0-100.0); MEAN PLATELET VOLUME 10.1 fL (7.4-10.4); MONOCYTES 11.5 % (2-11); NEUTROPHILS 68.6 % (40-80); PLATELET COUNT 245 10x3/uL (130-400); RBC 3.23 10x6/uL (4.00-5.40); RDW 20.5 % (11.5-14.5); WBC 19.2 10x3/uL (4.8-10.8)
--- NOTE | 2016-09-20 06:12 | NUR ---
PT AWAKE, ALERT, ORIENTED, LYING IN BED, DENIES ANY NEEDS. CONTINUE TO MONITOR CLOSELY.
[2016-09-20 07:31] LABS: ANION GAP 15.6 mmol/L (8-16); CALCIUM 8.2 mg/dL (8.5-10.1); CARBON DIOXIDE 22.9 mmol/L (21.0-32.0); CREATININE - SERUM 4.3 mg/dL (0.6-1.3); PHOSPHOROUS 4.6 mg/dL (2.5-4.9); POTASSIUM - SERUM 3.5 mmol/L (3.5-5.1); THYROID STIMULATING HORMONE 12.49 uIU/mL (0.36-3.74)
[2016-09-20 08:00] VITALS: BP 133/55
--- NOTE | 2016-09-20 08:10 | NUR ---
PATIENT IS AWAKE AND ALERT, DOZES OFF DURING ANY GAP IN CONVERSATION. IV ABTS BEGUN TO THE LEFT TRIALYSIS NURSE PORT. DRESSING IS CLEAN, DRY AND INTACT. INSULIN GIVEN PER THE SLIDING SCALE. SHE C/O "I'M FREEZING". FATHER IS AT THE BEDSIDE AND STATES THAT THIS IS VERY UNUSUAL FOR HER. SHE IS SHIVERING. WARM BLANKET PROVIDED.
--- NOTE | 2016-09-20 09:45 | NUR ---
PATIENT TOOK HER ORAL MEDICATIONS WITHOUT DIFFICULTY. LOVENOX GIVEN IN THE LEFT UPPER QUADRANT OF THE ABDOMEN. ANOTHER WARM BLANKET PROVIDED DUE TO CONTINUED C/O BEING COLD. WILL NOTIFY . ORAL TEMP THIS AM NOTED.
--- NOTE | 2016-09-20 10:15 | NUR ---
PATIENT'S LINENS CHANGED, BACK WASHED AND MEDICATIONS APPLIED TO FOLDS.
--- NOTE | 2016-09-20 10:51 | NUR ---
RONEL DE OLIVEIRA APN NOTIFIED OF PATIENT'S CHANGE OF CONDITION. NEW ORDERS RECEIVED FOR BLOOD CULTURES. DR. STONE PAGED FOR UPDATE OF PATIENT'S CONDITION.
[2016-09-20 11:56] VITALS: BP 110/55
--- NOTE | 2016-09-20 14:28 | NUR ---
SPOKE WITH [place] IN DIALYSIS. SHE REPORTS THAT THE PATINET'S DIALYSIS WILL BE DELAYED UNTIL TOMORROW PER RONEL DE OLIVEIRA APN. INFORMED THE PATIENT'S FATHER WHO IS AT THE BEDSIDE. HE VOICED UNDERSTANDING.
[2016-09-20 17:48] VITALS: BP 104/47
[2016-09-20 19:00] VITALS: BP 113/59
[2016-09-21] VITALS: BP 98/50
--- NOTE | 2016-09-21 00:36 | NUR ---
PT ROUSABLE TO VERBAL STIMULI, ASKING FOR ICE, DENIES ANY OTHER NEEDS. PT DEMONSTRATES STUPOR. SHE WILL WAKE WHEN SPOKEN TO BUT IMMEDIATELY RETURNS TO SLEEP. CONTINUE TO MONITOR CLOSELY.
[2016-09-21 04:00] VITALS: BP 144/98
--- NOTE | 2016-09-21 04:58 | NUR ---
PT AWAKE NOW, ALERT, ORIENTED, DRINKING BROTH AND ASKING FOR ICE CHIPS. PT STATES SHE IS FEELING BETTER, DENIES LETHARGY AT THIS TIME. CONTINUE TO MONITOR CLOSELY.
[2016-09-21 05:22] LABS: CARBON DIOXIDE 24.9 mmol/L (21.0-32.0); CREATININE - SERUM 4.8 mg/dL (0.6-1.3); POTASSIUM - SERUM 3.9 mmol/L (3.5-5.1)
[2016-09-21 05:35] LABS: HEMATOCRIT 28.4 % (36.0-48.0); MCH 28.7 pg (26.0-34.0); MCHC 31.7 g/dL (31.0-37.0); MCV 90.4 fL (80.0-100.0); MEAN PLATELET VOLUME 10.6 fL (7.4-10.4); PLATELET COUNT 291 10x3/uL (130-400); RBC 3.14 10x6/uL (4.00-5.40); RDW 20.3 % (11.5-14.5); WBC 31.9 10x3/uL (4.8-10.8)
[2016-09-21 05:54] LABS: CALCIUM 8.5 mg/dL (8.5-10.1)
[2016-09-21 07:15] LABS: ANISOCYTOSIS OCC; EOSINOPHILS 2 % (0-7); LYMPHOCYTES 12 % (15-50); MONOCYTES 8 % (2-11); NEUTROPHILS 68 % (40-80); PLATELET ESTIMATE NORMAL; SMUDGE CELLS OCC
[2016-09-21 08:00] VITALS: BP 101/52
--- NOTE | 2016-09-21 08:07 | NUR ---
0730- AM ROUNDING- RECEIVED REPORT FROM BUYER GRAIN NURSE SADIE. PT IS CURRENTLY REQUESTING TO PLACED ON BED PAIN. PLACED PT ON BED WHITEHEAD WITH ASSISTANCE FROM EDUARDO ALVARENGA AND LAMIN JARQUIN. 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 ON 02 AT 2L VIA NC. ON MONITOR SHOWING SR, HR 85. LEFT IJ TRIALYSIS CATHETER SEEN WITH NURSE PORT CURRENTLY SALINE LOCKED. FRANCIS CATHETER SEEN WITH CONCENTRATED URINE. WOUND VAC SEEN TO LEFT INNER THIGH AREA. JUST RECEIVED NURSING MESSAGE TO CHANGE FRANCIS. WILL CHANGE FRANCIS ORDERED. NO NEED AT CURRENT TIME. WILL CONTINUE TO MONITOR AND CONTINUE WITH PLAN OF CARE.
--- NOTE | 2016-09-21 09:50 | NUR ---
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 SHAKA JULES ATTEMPTED TO PLACE NEW FRANCIS CATHETER IN PT THAT WAS SUCCESSFUL WITH URINE RETURN. 10CC OF SALINE PLACED IN TO THE BALLOON SYRINGE. PT STATES SHE IS IN PAIN. WILL SEE WHAT PT HAS FOR PAIN AND GIVE ORDERED.
--- NOTE | 2016-09-21 11:10 | NUR ---
UPON GIVING PT MEDICATIONS, NOTICED NO URINE IN FRANCIS CATHETER BAG AND IN TUBING (THERE WAS URINE IN TUBING ON INSERTION) AND URINE ON PTS LINEN. 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 MAC STATES HER AND SHAKA GARCÍA WILL TRY AND PLACE NEW FRANCIS CATHETER IN PT. WILL CONTINUE TO MONITOR.
--- NOTE | 2016-09-21 11:15 | NUR ---
WOUND VAC DRESSING CHANGE WOUND TYPE: CHRONIC OPEN WOUND WOUND LOCATION: LEFT THIGH WOUND AGE IN MONTHS: DEBRIDEMENT ATTEMPTED IN LAST 10 DAYS? DATE/TYPE: SERIAL DEBRIDEMENTS REQUIRED? MEASUREMENT DATE: 09/21/16 5.5CM X 6CM X 4.5CM X 8.3CM @ 4 OCLOCK X 6CM FROM 5 TO 7 OCLOCK FULL THICKNESS? YES MUSCLE, TENDON OR BONE EXPOSED? NO UNDERMINING? YES TUNNELING/SINUS? YES APPEARANCE OF WOUND BED : FERRARI/BROWN NECROTIC EXUDATE (AMOUNT, COLOR, ODOR): SEROPURULENT MODERATE AMOUNT WITH FOUL ODOR FOAM TYPE: SILVER # OF PIECES USED:4 PIECES -125MMHG MODERATE CONTINUOUS SETTINGS WOUND CARE WILL CONTINUE TO MONITOR.
--- NOTE | 2016-09-21 11:29 | NUR ---
EDUARDO ALVARENGA AND LAMIN JARQUIN ARE CHANGING PTS LINEN. GEOMAGNETICIAN CAME TO INFORM ME THAT PT DOES HAVE URINE IN FRANCIS CATHETER TUBING. SHAKA GARCÍA WENT INTO ROOM AND STATES THERE IS URINE OUTPUT IN FRANCIS BAG. WILL CONTINUE TO MONITOR.
[2016-09-21 12:00] VITALS: BP 98/72
--- NOTE | 2016-09-21 12:08 | NUR ---
CHECKED PTS FRANCIS CATHETER WITH SCANT AMOUNT OF WHAT APPEARS TO BE CONCENTRATED URINE. OBTAINED UA WRITTEN BY DR. BIRCH IN NURSING MESSAGE. CALLED LAB TO INFORM THEM THAT I WILL DRAW BLOOD CULTURES WRITTEN IN NURSING MESSAGE BY DR. BIRCH. LAB STATES OK. WILL CONTINUE TO MONITOR.
--- NOTE | 2016-09-21 15:02 | NUR ---
MICHELLE, GRANULATING MACHINE OPERATOR AND NURSING INTSTUCTOR (Max SAHASILVIA) CHANGED PTS DRESSING TO LEFT IJ TRIALYSIS CATHETER.
[2016-09-21 15:51] VITALS: BP 103/25
[2016-09-21 17:52] LABS: APPEARANCE CLEAR (CLEAR); BILIRUBIN NEGATIVE (NEGATIVE); COLOR YELLOW (YELLOW); GLUCOSE NEGATIVE (NEGATIVE); KETONE NEGATIVE (NEGATIVE); LEUKOCYTE ESTERASE 1+ (NEGATIVE); NITRITE NEGATIVE (NEGATIVE); PROTEIN TRACE mg/dL (NEGATIVE); SPECIFIC GRAVITY 1.015 (1.005-1.020); UROBILINOGEN NORMAL (NORMAL)
[2016-09-21 17:53] LABS: BACTERIA MANY /hpf (NONE SEEN); EPITHELIAL CELLS 0-5 /hpf (0-5); RED CELLS - URINE 0-5 /hpf (0-5); WHITE CELLS - URINE 0-5 /hpf (0-5)
[2016-09-21 17:54] LABS: YEAST <1+ /hpf (NONE SEEN)
--- NOTE | 2016-09-21 18:10 | NUR ---
PT IS CURRENTLY SITTING UP IN BED WITH EYES OPEN RESTING RECEIVING DIALYSIS. FAMILY MEMBER (FATHER) IS AT BEDSIDE. NO NEED AT CURRENT TIME. WILL CONTINUE TO MONTIOR.
[2016-09-21 19:00] VITALS: BP 123/59
--- NOTE | 2016-09-21 21:00 | NUR ---
DIALYSIS COMPPLETED. SHIFT ASSESSMENT COMPLETED. AWAKE AKERT AND ORIENTED. MNO VOICED NEEDS AT THIS TIME. MONITOR SHOWS SR WITH BBB @ 70 CC/HR. O2 @ 2L/NC. RIGHT SUBCLAVIAN TRIPLE LUMEN PATENT. NO FREE WATER. BED LOW POSITION. CALL LIGHT IN REACH. WILL CONTINUE TO MONITOR.
--- NOTE | 2016-09-21 22:09 | NUR ---
NORCO 1 PO GIVEN FOR LEVEL #6 LEFT INNER THIGH PAIN AND GENERALIZED PAIN.
[2016-09-22] VITALS: BP 91/51
[2016-09-22 04:00] VITALS: BP 106/52
[2016-09-22 06:45] LABS: BASOPHILS 0.8 % (0-2); EOSINOPHILS 4.5 % (0-7); HEMOGLOBIN 8.7 g/dL (12-16); IMMATURE GRANULOCYTES 4.6 % (0-5); LYMPHOCYTES 12.4 % (15-50); MCH 28.1 pg (26.0-34.0); MCHC 31.1 g/dL (31.0-37.0); MCV 90.3 fL (80.0-100.0); MEAN PLATELET VOLUME 10.9 fL (7.4-10.4); MONOCYTES 11.3 % (2-11); NEUTROPHILS 66.4 % (40-80); PLATELET COUNT 258 10x3/uL (130-400); RDW 20.4 % (11.5-14.5); WBC 20.2 10x3/uL (4.8-10.8)
[2016-09-22 06:51] LABS: ANION GAP 12.2 mmol/L (8-16); CALCIUM 8.5 mg/dL (8.5-10.1); CARBON DIOXIDE 26.9 mmol/L (21.0-32.0)
[2016-09-22 06:52] LABS: CREATININE - SERUM 3.5 mg/dL (0.6-1.3); POTASSIUM - SERUM 3.1 mmol/L (3.5-5.1)
--- NOTE | 2016-09-22 07:32 | NUR ---
DR. BIRCH ON UNIT NOW. INFORMED DR. BIRCH OF PTS AM POTASSIUM LEVEL (3.1). DR. BIRCH STATES PT IS SUPPOSE TO DIALYZE TODAY SO LET DR. JOHANSEN KNOW WHEN ON UNIT INCASE THEY WANT TO CHANGE SOMETHING WITH DIALYSIS. WILL LET DR. JOHANSEN KNOW WHEN HE GETS TO UNIT.
--- NOTE | 2016-09-22 08:02 | NUR ---
AM ROUNDING- RECEIVED REPORT FROM ARCHEOLOGY PROFESSOR NURSE CUCO. PT IS CURRENTLY LAYING IN BED ON BACK WITH EYES CLOSED RESTING. FATHER IS AT BEDSIDE. RESP IN ROOM NOW GIVING PT INHALER. 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 ON 02 AT 2L VIA NC. ON MONITOR SHOWING SR, HR 71. IV SEEN TO LEFT IJ WITH NS RUNNING AT KVO (10CC). FRANCIS CATHETER SEEN. NO NEED AT CURRENT TIME. WILL CONTINUE TO MONITOR AND CONTINUE WITH PLAN OF CARE.
[2016-09-22 08:30] VITALS: BP 106/51
--- NOTE | 2016-09-22 11:49 | NUR ---
PAGED DR. STONE TO INFORM HER OF MICROBILOGY CALLING TO INFORM ME OF + BLOOD CULTURES. WILL AWAIT CALLBACK AND CONTINUE TO MONITOR.
--- NOTE | 2016-09-22 11:53 | NUR ---
RUTHY, SALES ENABLEMENT LEAD STATES DR. STONE IS OUT OF TOWN. LAW, SALES ENABLEMENT LEAD IS PAGING DR. BIRCH NOW.
[2016-09-22 11:57] VITALS: BP 104/51
--- NOTE | 2016-09-22 11:57 | NUR ---
RECEIVED CALL FROM DR. BIRCH. INFORMED DR. BIRCH OF PTS BLOOD CULTURE PER MICROBIOLOGY. DR. BIRCH GAVE NO NEW ORDERS. WILL CONTINUE TO MONITOR.
--- NOTE | 2016-09-22 14:04 | NUR ---
DIALYSIS NURSE CAME TO INFORM ME THAT THEY TOOK OFF 4L. PTS ENDING BLOOD PRESSURE PER DIALYSIS IS 112/57 WITH HEART RATE OF 80. WILL CONTINUE TO MONITOR.
--- NOTE | 2016-09-22 15:02 | NUR ---
Nutrition Follow Up: Pt is eating 67% meal avg on a renal ADA diet. Wt loss since admit noted - r/t fluid. +BM 09/22/16. Labs reviewed. Meds noted including MV, Lasix, Humalog, Lantus. Noted pt with chronic open wound to leg and wound vac is in place. Rec continue current diet. Will send Shakeel BID to promote wound healing. RD following.
[2016-09-22 15:13] VITALS: BP 96/44
--- NOTE | 2016-09-22 16:44 | NUR ---
PT IS CURRENTLY SITTING UP IN BED WITH EYES OPEN RESTING. PT DENIES ANY NEED AT CURRENT TIME. BED IS IN LOW POSITION, SIDE RAILS ARE UP X2, AND CALL LIGHT IS IN REACH. WILL CONTINUE TO MONITOR.
--- NOTE | 2016-09-22 17:08 | NUR ---
PT GIVEN ADAMARIS WITH DIET SPRITE AT DINNER TIME AND ENCOURAGED TO DRINK. PT AGREES.
--- NOTE | 2016-09-22 18:00 | NUR ---
PT IS CURRENTLY SITTING UP IN BED WITH EYES CLOSED RESTING. LEFT DINNER TRAY. NO NEED AT CURRENT TIME. WILL CONTINUE TO MONITOR.
[2016-09-22 19:00] VITALS: BP 103/52
--- NOTE | 2016-09-22 21:00 | NUR ---
REPORT RECEIVED AND CARE ASSUMED. EYES CLOSED WITH EVEN AND UNLABORED RESP. IN DROPLET ISOLATION FOR MRSA IN SPUTUM AND THROAT. ON O2 @ 2L/NC. WOUND VAC TO LEFT THIGH IN PLACE. WILL CONTINUE CURRENT PLAN OF CARE AND MONITOR FOR ANY CHANGES.
--- NOTE | 2016-09-22 23:00 | NUR ---
SHIFT ASSESSMENT COMPLETED PER FLOW SHEET. REFUSED TO TAKE CHRONULAC AT THIS TIME. SHE NEEDS TO WAIT A AN HOUR OR SO.
[2016-09-23] VITALS: BP 107/51
[2016-09-23 04:00] VITALS: BP 110/58
[2016-09-23 05:57] LABS: EOSINOPHILS 4.4 % (0-7); HEMATOCRIT 29.8 % (36.0-48.0); HEMOGLOBIN 9.3 g/dL (12-16); IMMATURE GRANULOCYTES 5.6 % (0-5); LYMPHOCYTES 14.9 % (15-50); MCH 28.4 pg (26.0-34.0); MCHC 31.2 g/dL (31.0-37.0); MCV 90.9 fL (80.0-100.0); MEAN PLATELET VOLUME 9.7 fL (7.4-10.4); MONOCYTES 8.2 % (2-11); NEUTROPHILS 64.9 % (40-80); PLATELET COUNT 250 10x3/uL (130-400); RBC 3.28 10x6/uL (4.00-5.40); RDW 20.5 % (11.5-14.5); WBC 19.9 10x3/uL (4.8-10.8)
[2016-09-23 06:09] LABS: ANION GAP 13.9 mmol/L (8-16); CALCIUM 8.9 mg/dL (8.5-10.1); CARBON DIOXIDE 25.8 mmol/L (21.0-32.0); CREATININE - SERUM 4.3 mg/dL (0.6-1.3); POTASSIUM - SERUM 3.7 mmol/L (3.5-5.1)
--- NOTE | 2016-09-23 08:26 | NUR ---
ASSESSMENT DONE. DENIES NEEDS.
[2016-09-23 08:44] VITALS: BP 89/95
--- NOTE | 2016-09-23 10:20 | NUR ---
RESTS IN ISOLATION ROOM. ON DIALYSIS AT BS. WILL CONT. PLAN OF CARE.
--- NOTE | 2016-09-23 10:27 | NUR ---
WOUND VAC DRESSING CHANGE WOUND TYPE: CHRONIC OPEN WOUND WOUND LOCATION: LEFT THIGH WOUND AGE IN MONTHS: DEBRIDEMENT ATTEMPTED IN LAST 10 DAYS? DATE/TYPE: SERIAL DEBRIDEMENTS REQUIRED? MEASUREMENT DATE: 09/23/16 5.5CM X 6CM X 4CM X 6CM @ 4 OCLOCK X 6CM FROM 5-7 OCLOCK FULL THICKNESS? YES MUSCLE, TENDON OR BONE EXPOSED? NO UNDERMINING? YES TUNNELING/SINUS? YES APPEARANCE OF WOUND BED : FERRARI EXUDATE (AMOUNT, COLOR, ODOR): MODERATE BLOODY - MODERATE ODOR FOAM TYPE:SILVER # OF PIECES USED:4 PIECES -125MMHG MOD CONTINUOUS
--- NOTE | 2016-09-23 16:53 | NUR ---
WITHOUT CHANGES OR DISTRESS NOTED AT THIS TIME. DENIES NEEDS.
[2016-09-23 18:24] VITALS: BP 147/72
[2016-09-23 19:00] VITALS: BP 108/53
--- NOTE | 2016-09-24 01:34 | NUR ---
NURSE ROUNDS 09/23/16 21:45 - PT LYING IN BED, EYES CLOSED, RESPIRATIONS EVEN, MILDLY LABORED. PT ROUSABLE TO VERBAL STIMULI, DEMONSTRATES STUPOR. PT WAKENS, AND IMMEDIATELY RETURNS BACK TO SLEEP. PT IS VERY SHAKEY, UNABLE TO HOLD ANYTHING WITHOUT DROPPING IT, HAS DIFFICULTY TAKING ANYTHING PO AT THIS TIME R/T BEING ABLE TO STAY AWAKE LONG ENOUGH, AND THE SHAKING. PT DENIES ANY NEEDS. CONTINUE TO MONITOR CLOSELY.
[2016-09-24 04:00] VITALS: BP 119/56
[2016-09-24 06:47] LABS: BASOPHILS 1.6 % (0-2); EOSINOPHILS 4.5 % (0-7); HEMATOCRIT 29.5 % (36.0-48.0); HEMOGLOBIN 9.1 g/dL (12-16); IMMATURE GRANULOCYTES 7.1 % (0-5); LYMPHOCYTES 14.5 % (15-50); MCH 28.3 pg (26.0-34.0); MCHC 30.8 g/dL (31.0-37.0); MCV 91.6 fL (80.0-100.0); MEAN PLATELET VOLUME 10.3 fL (7.4-10.4); MONOCYTES 9.3 % (2-11); PLATELET COUNT 252 10x3/uL (130-400); RBC 3.22 10x6/uL (4.00-5.40); RDW 20.3 % (11.5-14.5); WBC 21.9 10x3/uL (4.8-10.8)
[2016-09-24 07:04] LABS: ALBUMIN 1.5 g/dL (3.4-5.0); ANION GAP 16.9 mmol/L (8-16); BILIRUBIN - TOTAL 0.96 mg/dL (0.2-1.3); CALCIUM 8.8 mg/dL (8.5-10.1); CARBON DIOXIDE 22.8 mmol/L (21.0-32.0); POTASSIUM - SERUM 3.7 mmol/L (3.5-5.1); PROTEIN - SERUM 7.1 g/dL (6.4-8.2)
[2016-09-24 08:00] VITALS: BP 110/48
--- NOTE | 2016-09-24 08:15 | NUR ---
AM ROUNDING DONE WITH PATIENT IN DROPLET ISOLATION. ON 2L PER NC. FATHER AT [facility]. ON HEART MONITOR SHOWING SR C BBB, HR 78. LEFT IJ TRIALYSIS SEEN WITH NS INFUSING AT 10 CC/HR. FRANCIS CATH PATENT. ON BARIATRIC BED. LEFT THIGH SEEN WITH DRY, INTACT DRESSING FOR WOUND VAC, NO LEAKS. WILL COMPLETE ASSESSMENT DURING SHIFT.
[2016-09-24 12:00] VITALS: BP 110/53
[2016-09-24 16:00] VITALS: BP 108/43
--- NOTE | 2016-09-24 18:07 | NUR ---
PATIENT TOLERATED 4 KILO'S TAKEN OFF WITH DIALYSIS. JUST FINSHED HER SUPPER TRAY. HAS HAD 2 LIQUID BM'S THIS SHIFT. WILL CONTINUE TO FOLLOW AND MONITOR NEEDS.
[2016-09-24 20:00] VITALS: BP 95/46
[2016-09-25 04:00] VITALS: BP 87/53
--- NOTE | 2016-09-25 07:39 | NUR ---
AM ROUNDING DONE, FATHER AT BEDSIDE. IN DROPLET ISOLATION. ON HEART MONITOR SHOWING ST, HR 101. ON 2L PER NC. LEFT IJ TRIALYSIS WITH NS INFUSING AT 10 CC/HR. ON BIG BOY BED. STILL WITH YEASTY AREAS UNDER BREASTS AND IN ABDOMINAL FOLDS. LEFT THIGH WOUND VAS DRESSING SEEN, CDI, NO LEAKS. FRANCIS CATH PATENT WITH CONCENTRATED URINE TO BAG.
[2016-09-25 08:09] VITALS: BP 127/86
[2016-09-25 09:13] LABS: BASOPHILS 1.9 % (0-2); EOSINOPHILS 3.6 % (0-7); HEMATOCRIT 30.7 % (36.0-48.0); HEMOGLOBIN 9.4 g/dL (12-16); MCH 28.2 pg (26.0-34.0); MCHC 30.6 g/dL (31.0-37.0); MCV 92.2 fL (80.0-100.0); MONOCYTES 9.2 % (2-11); NEUTROPHILS 62.3 % (40-80); PLATELET COUNT 253 10x3/uL (130-400); RBC 3.33 10x6/uL (4.00-5.40); RDW 20.2 % (11.5-14.5); WBC 21.3 10x3/uL (4.8-10.8)
[2016-09-25 09:33] LABS: ALBUMIN 1.7 g/dL (3.4-5.0); ANION GAP 15.2 mmol/L (8-16); BILIRUBIN - TOTAL 1.18 mg/dL (0.2-1.3); CALCIUM 8.6 mg/dL (8.5-10.1); CARBON DIOXIDE 24.2 mmol/L (21.0-32.0); CREATININE - SERUM 4.4 mg/dL (0.6-1.3); MAGNESIUM - SERUM 1.9 mg/dL (1.8-2.4); PHOSPHOROUS 4.4 mg/dL (2.5-4.9); POTASSIUM - SERUM 3.4 mmol/L (3.5-5.1)
--- NOTE | 2016-09-25 09:37 | NUR ---
AM MEDS GIVEN ALONG WITH NORCO FOR LEG PAIN 08/03.
[2016-09-25 12:00] VITALS: BP 124/54
--- NOTE | 2016-09-25 17:01 | NUR ---
BLOOD SUGAR IS 182, 2 U OF INSULING GIVEN TO RIGHT ARM PER SLIDING SCALE. DENIES ANY FURTHER NEEDS.
--- NOTE | 2016-09-25 17:03 | NUR ---
ON HEART MONITOR NOW SHOWING SR, HR 84.
[2016-09-25 20:00] VITALS: BP 97/53
[2016-09-26 04:00] VITALS: BP 128/60
[2016-09-26 05:38] LABS: BASOPHILS 1.7 % (0-2); EOSINOPHILS 3.8 % (0-7); IMMATURE GRANULOCYTES 10.7 % (0-5); LYMPHOCYTES 14.1 % (15-50); MCH 29.2 pg (26.0-34.0); MCV 91.4 fL (80.0-100.0); MEAN PLATELET VOLUME 10.3 fL (7.4-10.4); NEUTROPHILS 61.7 % (40-80); RDW 20.2 % (11.5-14.5)
[2016-09-26 05:42] LABS: HEMATOCRIT 41.3 % (36.0-48.0); HEMOGLOBIN 13.2 g/dL (12-16); PLATELET COUNT 162 10x3/uL (130-400); RBC 4.52 10x6/uL (4.00-5.40); WBC 13.8 10x3/uL (4.8-10.8)
[2016-09-26 05:55] LABS: ALBUMIN 1.5 g/dL (3.4-5.0); ANION GAP 17.1 mmol/L (8-16); BILIRUBIN - TOTAL 1.08 mg/dL (0.2-1.3); CALCIUM 8.6 mg/dL (8.5-10.1); CARBON DIOXIDE 23.2 mmol/L (21.0-32.0); CREATININE - SERUM 5.2 mg/dL (0.6-1.3); MAGNESIUM - SERUM 1.9 mg/dL (1.8-2.4); PHOSPHOROUS 4.8 mg/dL (2.5-4.9); POTASSIUM - SERUM 3.3 mmol/L (3.5-5.1); PROTEIN - SERUM 6.7 g/dL (6.4-8.2)
--- NOTE | 2016-09-26 07:28 | NUR ---
AM ROUNDS- PT IN BED, C/O OF HONG, NIGHT NURSE TO BRING ZORRAN, PT DENIES ANY OTHER NEEDS, FATHER AT BEDSIDE. BED LOW AND WHEELS LOCKED. BEDRAILS X2, CALL LIGHT IN REACH, NAD NOTED, WILL CONTINUE TO MONITOR.
--- NOTE | 2016-09-26 07:37 | NUR ---
AM ROUNDS- PT IN BED, STATES THAT SHE IS HURTING, WANTS TO KNOW IF DOCTOR ORDERED SOMETHING FOR PAIN. INFORMED PT THAT SHE IS SCHEDULE FOR A PIPIDA SCAN AND IS NOT ABLE TO HAVE PAIN MED UNTIL SHE HAS THAT DONE. PT VERBALIZED UNDERSTANDING. DENIES ANY NEEDS AT THIS TIME. BED LOW AND WHEELS LOCKED, BEDSIDE RAILS X2. RT HAND IV SL. CALL LIGHT IN REACH, NAD NOTED, WILL CONTINUE TO MONITOR.
[2016-09-26 08:40] VITALS: BP 98/50
--- NOTE | 2016-09-26 09:36 | NUR ---
ADMINISTERED 10MG NORCO FOR PAIN LEVEL OF 3/10, ALSO WOUND CARE NURSE, RAQUEL MATT FIXING TO CHANGE WOUND VAC. PT STATES NAUSEA BETTER, A LITTLE SLEEPY THIS AM. PT DENIES ANY OTHER NEEDS AT THIS TIME. FATHER AT BEDSIDE, CALL LIGHT IN REACH, WILL CONTINUE TO MONITOR.
--- NOTE | 2016-09-26 10:18 | NUR ---
WOUND VAC DRESSING CHANGE WOUND TYPE: chronic open wound WOUND LOCATION: left thigh WOUND AGE IN MONTHS: DEBRIDEMENT ATTEMPTED IN LAST 10 DAYS? DATE/TYPE: SERIAL DEBRIDEMENTS REQUIRED? MEASUREMENT DATE: 09/26/16 5cm x 6cm x 3cm x 8.8cm @ 3 oclock x 5cm @ 4oclock x 4.5cm from 5-6 oclock FULL THICKNESS? yes MUSCLE, TENDON OR BONE EXPOSED? no UNDERMINING? yes TUNNELING/SINUS? yes APPEARANCE OF WOUND BED : 40% red/beefy 60% metzger EXUDATE (AMOUNT, COLOR, ODOR): moderate bloody odorous FOAM TYPE: ellis # OF PIECES USED: 5 total (4 in wound 1 on top) -125mmhg mod continuous
--- NOTE | 2016-09-26 11:26 | NUR ---
BLOOD SUGAR OF 130, NO COVERAGE NEEDED PER S/S. PT A LITTLE LETHARGIC TODAY , BUT AROUSES WHEN SPOKEN TO. FATHER STATES THAT SHE GETS LETHARGIC AND WEAK, WHEN HER AMMONIA LEVELS ARE HIGH, NO AMMONIA LEVEL FOR TODAY. FATHER STATED THAT THERE IS NO NEED TO HAVE IT CHECKED TODAY, BECAUSE HE ALREADY KNOWS THAT IT IS HIGH AND THAT THEY WILL CHECK IT IN THE AM TOMORROW. PT DENIES ANY NEEDS, CALL LIGHT IN REACH, NAD NOTED, WILL CONTINUE TO MONITOR.
[2016-09-26 12:39] VITALS: BP 102/52
--- NOTE | 2016-09-26 15:27 | NUR ---
Patient Name: JANETTE RUSSO Encounter No: [id number] : 1970 Primary Insurance: MEDICAID [facility] [place] Date: 09-27-2016 Planned Disposition[facility] External Planned Provider: EYAL IRIZARRY DCP follow-up note: CM RECEIVED ORDER FOR [facility] EVALUATION AND THE POSSIBILITY THAT PT WILL NEED TO FIND ANOTHER NURSING FACILITY UPON DISCHARGE FROM HOSPITAL. ABRIL SPOKE TO RENAL NURSE TUTU WHO REPORTS THEY ARE NOT ABLE TO DETERMINE IF PT WILL REQUIRE [facility] AT THIS TIME, BUT CHANCES ARE HIGH THAT SHE WILL. ABRIL SPOKE TO BARB, CLINICAL LIAISON FOR [facility] WHO REPORTS THAT ADMINISTRATION AT THE [facility] IS LOOKING INTO TRANSPORTATION OPTIONS FOR PT'S NEEDS IN CASE SHE NEEDS OUTPATIENT DIALYSIS. BARB ASKED IF PT IS WILLING TO CONSIDER [facility] IN [place]. CM CALLED SANDY OF [facility] TO DETERMINE OUTPATIENT DIALYSIS UNIT LIMITS; [facility] AND [facility] CAN ACCOMODATE ONLY UP TO 315 LBS AND HAVE NO LIFTS. [facility] IN [place] CAN ACCOMODATE UP TO 450 LBS AND HAVE LIFT AND BERICHAIR. ABRIL SPOKE TO PT AND HER FATHER IN ROOM TO DISCUSS [facility] OPTIONS AND [facility] OPTIONS. PT'S FATHER WANTS REFERRAL SENT TO [facility] AT [facility]]; THEY DO NOT WANT TO CONSIDER [facility] FOR [facility] AND WANT TO WAIT TO SEE IF THE [facility] CAN WORK ANYTHING OUT FOR TRANSPORTATION TO AND FROM DIALYSIS AND TRY TO GET PT BACK TO THE [facility] WHEN STABLE. BARIL CALLED NURSE SCREENER G[facility]ON FOR [facility], , LEFT MESSAGE WITH REFERRAL INFORMATION; CM FAXED REFERRAL TO [facility] AT [phone]. CM FAXED UPDATE TO THE [facility]IA [facility]N AT [phone]. CM CALLED [facility], , SPOKE TO BARB, PROVIDED BACKGROUND INFORMATION, ASKED IF PT'S [facility] [employer]BER[employer]IP WOULD ASSIST WITH DECREASING COSTS OF AMBULANCE TRANSPORT TO AND FROM OUTPATIENT DIALYSIS. BARB ADVISED THAT NO IT WOULD NOT IF PT IS PLACED IN [facility], THE FACILITY IS RESPONSIBLE FOR TRANSPORTATION COSTS. CM WAITING [facility] ADMISSION DETERMINATION FROM [facility]. Adriel Kramer, CASE MANAGEMENT
--- NOTE | 2016-09-26 15:33 | NUR ---
Dialysis Coordinator: [facility]: Patient new to dialysis. Needing OPHD arrangements. Patient needs bariatric chair and lift. [facility] has a chair and lift with a larger weight capacity. Referral has been created and sent to admissions. Waiting to see if this clinic can accomodate this patient. Will update the CM once DC hears back from the clinic. RHETT MENDEZ.
--- NOTE | 2016-09-26 16:39 | NUR ---
BLOOD SUGAR OF 150, NO COVERAGE NEEDED PER S/S. PT GETTING DIALYSIS AT THIS TIME. PT IN BED WITH EYES CLOSED, FATHER AT BEDSIDE. NAD NOTED, WILL CONTINUE TO MONITOR.
[2016-09-26 16:51] VITALS: BP 118/53
[2016-09-26 18:08] LABS: AEROBE ID Final report (())
[2016-09-26 19:00] VITALS: BP 91/593
--- NOTE | 2016-09-26 20:18 | NUR ---
PT LYING IN BED, AWAKE, ALERT, JUST FINISHED DIALYZING. PT STATES SHE DOES NOT FEEL WELL AT ALL RIGHT NOW. PT IS WEAK. PT IS CURRENTLY ON BED WHITEHEAD. CONTINUE TO MONITOR CLOSELY.
[2016-09-27] VITALS (10 sets, daily range): BP systolic 90–114; BP diastolic 48–70
--- NOTE | 2016-09-27 01:16 | NUR ---
PT REFUSED 21:00 DOSE OF LACTULOSE AFTER REQUESTING TWO DIFFERENT TIMES FOR PT TO TAKE IT. PT STATES SHE CANNOT TOLERATE IT RIGHT NOW. CONTINUE TO MONITOR CLOSELY.
--- NOTE | 2016-09-27 06:10 | NUR ---
BED BATH GIVEN, LINEN CHANGED, GOWN CHANGED, PT TOLERATED WELL. CONTINUE TO MONITOR CLOSELY.
--- NOTE | 2016-09-27 08:27 | NUR ---
AM ROUNDS - PT IS IN BED AWAKE WITH FAMILY MEMBER (DAD) AT BEDSIDE. PT'S DAD IS TRYING TO GET PT TO EAT BREAKFAST. MONITOR SHOWING SR, HR 82. BED AT LOWEST POSITION. SIDE RAILS UP X2. CALL HAZEL IN USE/REACH. O2 AT 2L VIA NC. LEFT IJ TRIALYSIS WITH A NURSE PORT. PT IS ON DROPLET ISOLATION. NO FUTHER NEEDS AT THIS TIME. WILL CONTINUE TO MONITOR
[2016-09-27 10:05] LABS: RBC 3.21 10x6/uL (4.00-5.40); WBC 26.2 10x3/uL (4.8-10.8)
[2016-09-27 10:06] LABS: HEMATOCRIT 29.3 % (36.0-48.0); HEMOGLOBIN 9.2 g/dL (12-16); MCH 28.7 pg (26.0-34.0); MCHC 31.4 g/dL (31.0-37.0); MCV 91.3 fL (80.0-100.0); MEAN PLATELET VOLUME 10.7 fL (7.4-10.4); PLATELET COUNT 233 10x3/uL (130-400); RDW 19.4 % (11.5-14.5)
[2016-09-27 10:10] LABS: ANION GAP 19.1 mmol/L (8-16); CALCIUM 8.5 mg/dL (8.5-10.1); CARBON DIOXIDE 21.5 mmol/L (21.0-32.0); CREATININE - SERUM 6.3 mg/dL (0.6-1.3); POTASSIUM - SERUM 3.6 mmol/L (3.5-5.1)
[2016-09-27 10:11] LABS: BASOPHILS 1 % (0-2); EOSINOPHILS 2 % (0-7); LYMPHOCYTES 21 % (15-50); MONOCYTES 2 % (2-11); NEUTROPHILS 74 % (40-80)
[2016-09-27 10:13] LABS: PLATELET ESTIMATE NORMAL
--- NOTE | 2016-09-27 11:20 | NUR ---
MORNING MEDICATION GIVEN. PT TOLERATED WELL. WILL CONTINUE TO MONITOR
--- NOTE | 2016-09-27 17:47 | NUR ---
Mrs. Escobar had bedside hemodialysis today via her left IJ Trialysis from 1448 until 1705. At 1700 pt. started having uncontrolled atrial fib with a HR 140./P was 82/31. Dr. Mares notified and treatment was terminated at this time per orders. Net fluid removed was 4000 mls. Post vital signs were: B/P: 102/36, HR: 136, Temp:7.5, Resps: 18.
[2016-09-27 20:17] LABS: CKMB 0.1 U/L (0.0-3.6); CREATINE KINASE 23 UL (21-215)
[2016-09-27 20:18] LABS: TROPONIN-I < 0.017 ng/mL (0.000-0.060)
--- NOTE | 2016-09-27 20:25 | NUR ---
PT RECEIVED TO ROOM 2310. DID RECEIVE REPORT FROM JORGE A CARDOZO FROM [facility] WHO STATED HR IN 120'S AND PT IN AFIB. PT CONNECTED TO STANDARD ICU MONITORS AND PT HR 69 SINUS RHYTHM. PT ORIENTATED TO ROOM, IN DROPLET ISOLATION AND ON SPECIALTY BED. WILL MONITOR AND RECORD ANY CHANGES
--- NOTE | 2016-09-27 21:45 | NUR ---
DR. JOHANSEN CALLED FOR UPDATE. ORDERS RECEIVED FOR LABS IN AM
--- NOTE | 2016-09-27 23:00 | NUR ---
SHIFT REASSESSMENT COMPLETED SEE FLOWSHEET. NO ACUTE CHANGES NOTED. PT SLEEPING BUT EASILY AWAKEN TO VERBAL STIMULI AND ABLE TO ENGAGE IN CONVERSATION IN A MEANINGFUL MANNER. VSS AFEBRILE AND WAX PATTERN COATER SHOWS SR
[2016-09-28] VITALS (24 sets, daily range): BP systolic 81–116; BP diastolic 40–94
--- NOTE | 2016-09-28 01:00 | NUR ---
PT CONTINUES TO BE TOTAL CARE. PT TURNED AND PILLOWS USED FOR SUPPORT AND TO RELIEVE PRESSURE. HEELS BRIDGED. PT IS ON [facility] MAX[facility] BED WITH TRAPEZE BAR TO ASSIST WITH TURNING. PT ABLE TO HELP VERY MINIMALLY. PT CONTINUES TO HAVE WOUND VAC THERPY TO LEFT LEG AT 125MMHG OF CONTINUOUS THERAPY. CELLUTLITS PERSISTS ON LOWER LEGS BILAT. NO ACUTE CHANGES IN PT. PT CONTINUES TO EASILY AWAKEN AND RESPONDS APPROPRIATLY.
--- NOTE | 2016-09-28 01:30 | NUR ---
ASSUMED CARE. REPORT RECIEVED FROM MONO. PT'S VSS AT THIS TIME. CALL LIGHT IN REACH.
--- NOTE | 2016-09-28 02:32 | NUR ---
PT HAS COMPLAINT OF HIP AND LEG PAIN. RATES IT A 6/10. REPOSITONED PT FOR COMFORT. ADMINISTERED PRN TYLENOL. WILL REASSESS OCCORDINGLY. CALL LIGHT IN REACH.
--- NOTE | 2016-09-28 03:00 | NUR ---
REASSESSMENT COMPLETE. PT STATES THAT HER PAIN HAS NOT SUBSIDED AND IS STILL A 6/10. PT ADIMENT ABOUT HAVING NORCO. ADMINISTERED PRN MEDICATION. PT STATES THAT SHE WANTS TO REMAIN POSITIONED ON HER BACK AT THIS TIME. NO CHANGES NOTED FROM PREVIOUS ASSESSMENT OTHER THAN PAIN LEVEL. CVL DRESSING WAS CHANGED ON 09/26/16 WELL WOUND VAC DRESSING. BOTH ARE CDI. PT CALL LIGHT IN REACH. DENIES ANY FURTHER REQUESTS.
--- NOTE | 2016-09-28 05:05 | NUR ---
PT SLEEPING AT THIS TIME. NURSE PORT WOULD NOT DRAW FOR AM LABS. CALLED LAB TO DRAW. NO APPARENT NEEDS AT THIS TIME. CALL LIGHT IN REACH. WILL CONTINUE TO MONITOR.
[2016-09-28 05:44] LABS: BASOPHILS 1.9 % (0-2); HEMATOCRIT 30.1 % (36.0-48.0); HEMOGLOBIN 9.4 g/dL (12-16); IMMATURE GRANULOCYTES 8.4 % (0-5); LYMPHOCYTES 13.1 % (15-50); MCH 28.5 pg (26.0-34.0); MCHC 31.2 g/dL (31.0-37.0); MCV 91.2 fL (80.0-100.0); MEAN PLATELET VOLUME 10.9 fL (7.4-10.4); MONOCYTES 7.9 % (2-11); NEUTROPHILS 64.7 % (40-80); PLATELET COUNT 226 10x3/uL (130-400); RDW 19.7 % (11.5-14.5); WBC 23.7 10x3/uL (4.8-10.8)
[2016-09-28 06:05] LABS: ANION GAP 18.5 mmol/L (8-16); CALCIUM 8.3 mg/dL (8.5-10.1); CREATININE - SERUM 5.2 mg/dL (0.6-1.3); DIGOXIN 0.96 ng/mL (0.90-2.00); MAGNESIUM - SERUM 1.9 mg/dL (1.8-2.4); PHOSPHOROUS 4.4 mg/dL (2.5-4.9); POTASSIUM - SERUM 3.5 mmol/L (3.5-5.1)
--- NOTE | 2016-09-28 08:37 | NUR ---
FRANCIS CATHETER REMOVED. TIP INTACT. NEW 16F CATHETER PLACED. PT HAD LARGE BOWEL MOVEMENT THAT WAS CLEANED UP. ALL NEW LINENS PROVIDED. PT HAS EXTENSIVE SKIN BREAKDOWN IN ABDOMENAL FOLDS AND ON RIGHT ABDOMEN. HAS SCRATCH AND OPEN WOUND ON INNER THIGHS WELL.
--- NOTE | 2016-09-28 09:46 | NUR ---
NUTRITION MONITORING & EVAL CHART REVIEWED, PT CURRENTLY IN ICU. NO PO INTAKE BREAKFAST. WILL CONTINUE TO MONITOR PT PROGRESS, PROVIDE DIET. RD FOLLOWING
--- NOTE | 2016-09-28 11:18 | NUR ---
WOUND VAC DRESSING CHANGE WOUND TYPE: chronic wound WOUND LOCATION: left thigh WOUND AGE IN MONTHS: weeks DEBRIDEMENT ATTEMPTED IN LAST 10 DAYS? DATE/TYPE: SERIAL DEBRIDEMENTS REQUIRED? MEASUREMENT DATE: 09/28/16 5cm x 6cm x 3cm x 8.8cm @ 3 oclock x 5cm @ 4oclock x 4.5cm from 5-6 oclock no change in wound except odor does not seem as strong FULL THICKNESS? yes MUSCLE, TENDON OR BONE EXPOSED? no UNDERMINING? yes TUNNELING/SINUS? yes APPEARANCE OF WOUND BED : 30%red 70% metzger/ellis EXUDATE (AMOUNT, COLOR, ODOR): moderate seropurulent odorous FOAM TYPE: ellis # OF PIECES USED: 4 pieces -125mmhg mod continuous
--- NOTE | 2016-09-28 13:10 | NUR ---
Patient Name: JANETTE RUSSO Encounter No: [id number] : 1970 Primary Insurance: MEDICAID [place] Anticipated DC Date: 09-27-2016 Planned Disposition: Nursing Facility [facility] External Planned Provider: [facility] MEDICAID B[facility] DCP follow-up note: CM REIVED CALL FROM MONALISA OF [facility], SHE IS IN PROCESS OF SETTING PT UP FOR OUTPATIENT DIALYSIS CLINIC AND NEEDS LAST TWO HEMODIALYSIS FLOW SHEETS. CM FAXED REQUESTED INFORMATION TO [facility] AT [phone]. CM WAITING OUTPATINET DILAYSIS CLINIC ARRANGEMENT BY [facility]. CM WAITING [facility] ADMISSION DETERMINATION FROM [facility]. PT'S FAMILY CONTINUE TO REPORT PLAN FOR PT TO RETURN TO THE [facility] FOR DRAGLINE OILER CARE AT END OF HOSPITAL STAY (ACUTE OR SNF.) Adriel Kramer, CASE MANAGEMENT
--- NOTE | 2016-09-28 15:00 | NUR ---
FATHER AT BEDSIDE FOR 3PM VISITATION. PT HAS BEEN SLEEPING. NO DISTRESS.
--- NOTE | 2016-09-28 18:23 | NUR ---
FATHER AND BROTHER AT BEDSIDE FOR 6PM VISITATION. I WAS UNABLE TO GET PATIENT TO EAT. THEY ARE ATTEMPTING TO GET HER TO EAT SOMETHING. PT HAS ALSO ASKED FOR A BEDPAN. PLACED ON BEDPAN WITH ASSISTANCE FROM NURSING STAFF AND FATHER.
--- NOTE | 2016-09-28 19:00 | NUR ---
REPORT RECEIVED. ASSESSMENT COMPLETE PER FLOW SHEET. 2L NC RR 14. LUNG SOUNDS DIMINISHED ALL LOBES. S1S2 PRESENT. TELEMETRY MONITORING RATE OF 68, NORMAL SINUS. BP 107/55 VIA R ARM NIBP. L IJ TRIALYSIS CATHETER, DRESSING CLEAN, DRY, AND INTACT. NS AT 10 MLS/HR KVO. EXCORIATION NOTED UNDER BOTH BREASTS. BS ACTIVE X4. OBESE ABDOMEN. REDDENED AREA UNDER ABDOMENAL FOLDS. EXCORIATION NOTED ON R SIDE OF ABDOMEN. FRANCIS CATHETER INTACT, NO URINE OUTPUT NOTED IN FRANCIS BAG. L LEG PRESSURE ULCER, WOUND VAC IN PLACE, BROWN DRAINAGE NOTED IN COLLECTION CHAMBER, DRESSING CLEAN AND INTACT. SCABS/SORES NOTED BILAT LEGS. WEEEPING EDEMA BILAT UPPER AND LOWER EXTREMITIES. BILAT INNER THIGH EXCORIATION. CAPILLARY REFILL <3 UPPER AND LOWER EXTREMITIES. BILAT RADIAL PULSES PALP. POPLITEAL PULSES WEAK BILAT. SKIN IS COOL AXILLARY TEMP 96.9, ROOM TEMP INCREASED TO 86 F AND WARM BLANKET APPLIED. WILL REASSESS TEMP. BED IN LOWEST POSITION. CALL LIGHT WITHIN REACH. SEE FLOW SHEET FOR COMPLETE ASSESSMENT.
--- NOTE | 2016-09-28 19:30 | NUR ---
TEMP REASSESSED. AXILLARY 97.2. SKIN WARM TO TOUCH.
--- NOTE | 2016-09-28 20:30 | NUR ---
MEDS ADMINISTERED. VSS. BED IN LOWEST POSITION. CALL LIGHT WITHIN REACH. DENIES FURTHER NEEDS AT THIS TIME. WILL CONTINUE TO MONITOR.
--- NOTE | 2016-09-28 21:00 | NUR ---
FSBS 136. HUMALOG WITHHEALD PER DOCTOR'S ORDERS. SCHEDULED 40 UNITS OF LANTUS ADMINISTERED. VSS. BED IN LOWEST POSITION. DENIES FURTHER NEEDS AT THIS TIME. WILL CONTINUE TO MONITOR.
--- NOTE | 2016-09-28 23:00 | NUR ---
ASLEEP, RESTING IN BED. REASSESSMENT COMPLETE PER FLOW SHEET. NO CHANGES NOTED. VSS. BED IN LOWEST POSITION. CALL LIGHT WITHIN REACH. WILL CONTINUE TO MONITOR.
[2016-09-29] VITALS (24 sets, daily range): BP systolic 89–133; BP diastolic 47–87
--- NOTE | 2016-09-29 00:25 | NUR ---
LAYING IN BED ASLEEP. PROTONIX ADMINISTERED. BED IN LOWEST POSITION. VSS. WILL CONTINUE TO MONITOR.
--- NOTE | 2016-09-29 02:00 | NUR ---
LAYING IN BED SLEEPING. VSS. BED IN LOWEST POSITION. CALL LIGHT WITHIN REACH. WILL CONTINUE TO MONITOR.
--- NOTE | 2016-09-29 03:00 | NUR ---
REASSESSMENT COMPLETE PER FLOW SHEET. VSS. BED IN LOWEST POSITION. WILL CONTINUE TO MONITOR.
--- NOTE | 2016-09-29 04:00 | NUR ---
COMPLETE BED BATH GIVEN WITH SOAP AND WATER. REPOSITIONED FOR COMFORT. BED IN LOWEST POSITION. CALL LIGHT WITHIN REACH. WILL CONTINUE TO MONITOR.
--- NOTE | 2016-09-29 05:00 | NUR ---
LAYING IN BED SLEEPING. VSS. BED IN LOWEST POSITION. CALL LIGHT WITHIN REACH. WILL CONTINUE TO MONITOR.
[2016-09-29 05:11] LABS: BASOPHILS 1.7 % (0-2); EOSINOPHILS 4.4 % (0-7); HEMATOCRIT 30.1 % (36.0-48.0); HEMOGLOBIN 9.3 g/dL (12-16); IMMATURE GRANULOCYTES 6.9 % (0-5); LYMPHOCYTES 14.8 % (15-50); MCH 28.4 pg (26.0-34.0); MCHC 30.9 g/dL (31.0-37.0); MCV 91.8 fL (80.0-100.0); MEAN PLATELET VOLUME 10.1 fL (7.4-10.4); MONOCYTES 7.7 % (2-11); NEUTROPHILS 64.5 % (40-80); PLATELET COUNT 203 10x3/uL (130-400); RBC 3.28 10x6/uL (4.00-5.40); RDW 19.4 % (11.5-14.5); WBC 23.8 10x3/uL (4.8-10.8)
[2016-09-29 05:46] LABS: ALBUMIN 1.4 g/dL (3.4-5.0); BILIRUBIN - TOTAL 1.07 mg/dL (0.2-1.3); CALCIUM 8.6 mg/dL (8.5-10.1); MAGNESIUM - SERUM 2.2 mg/dL (1.8-2.4); PROTEIN - SERUM 6.8 g/dL (6.4-8.2); T4 THYROXIN - FREE 0.89 ng/dL (0.76-1.46); THYROID STIMULATING HORMONE 12.05 uIU/mL (0.36-3.74)
--- NOTE | 2016-09-29 07:30 | NUR ---
REPORT RECD PT CARE ASSUMED. PT IS DISORIENTED/ CONFUSED. PT ASKS THE SAME THING REPEATEDLY AND HAS DIFFICULTY KEEPING HEAD UP/OPENING EYES. S1S2 NOTED, SR PER CM. LUNG SOUNDS CLR BUT DIMINISHED. PT IS OBESE, MANY AREAS OF SKIN BREAKDOWN SEE SHIFT ASSESSMENT FOR FURTHER DETAILS. PT HAS FRANCIS IN PLACE, NO URINE NOTED. VSS. WILL MONITOR.
--- NOTE | 2016-09-29 09:10 | NUR ---
PT RECEIVES FULL LINEN CHANGE. PT PULLED UP IN BED AND PUT IN SITTING POSITION TO ATTEMPT BREAKFAST/MED PASS. BEFORE I AM ABLE TO ASSESS SWALLOWING PT FATHER IS FEEDING PT BREAD. PT IS CHEWING BREAD BUT NEEDS CONSTANT REMINDER TO CHEW AND SWALLOW. PT FALLS ASLEEP WHILE CHEWING AND DOES NOT TOLERATE DRINKING WITHOUT DROOLING. PT PO MEDS HELD AND NOTIFIED FOR SWALLOW EVAL.
--- NOTE | 2016-09-29 09:35 | NUR ---
NUTRITION MONITORING & EVAL CHART REVIEWED, NOTE DNR STATUS. NURSING REPORTS PT WITH NO PO AT BREAKFAST. POSSIBLE SWALLOW EVAL. RD FOLLOWING
--- NOTE | 2016-09-29 12:00 | NUR ---
PT FAMILY AT BEDSIDE. PT FAMILY PROVIDED WITH UPDATE. PT RESTING COMFORTABLY, NO DISTRESS NOTED, VSS.
--- NOTE | 2016-09-29 14:20 | NUR ---
PT HAS SWALLOW EVAL. OK TO HAVE THIN LIQUIDS AND MECHANICLE DIET.
--- NOTE | 2016-09-29 15:05 | NUR ---
PT STILL CONFUSED BUT DRINKS MOST OF LACTULOSE. POWDER APPLIED AND PARTIAL LINEN CHANGE RECD. GOWN CHANGED WELL. PT FAMILY AT BEDSIDE FOR VISITATION.
--- NOTE | 2016-09-29 17:20 | NUR ---
ASSUMED CARE OF PT
--- NOTE | 2016-09-29 19:00 | NUR ---
REPORT REC'D, ASSUMED PATIENT CARE. ASSESSMENT COMPLETED. PT AROUSES EASILY WITH VOICES, ANSEREWD SIMPLE QUESTIONS. FOLLOW COMMANDS. SR ON CM WITH HR AT 68. LUNG SOUNDS DIMINISHED TO ALL WEIR. LEFT IJ TRIALYSIS INTACT, CLEAN AND DRY. NS AT K[facility] INFUSING VIA PUMP TO NURSE PORT. LEFT THIGH WOUND VAC INTACT TO SUCTION. FRANCIS INTACT TO GRAVITY WITH SCANT DRAINAGE, PPP, BARIMAXX BED IN USE. CALL LIGHT IN REACH. CONT TO MONITOR.
--- NOTE | 2016-09-29 21:00 | NUR ---
NO VISITORS AT THIS TIME. SCHEDULED MEDS GIVEN PER ORDER. REPOSITIONED FOR COMFORT. CALL LIGHT IN REACH. CPOC
--- NOTE | 2016-09-29 23:00 | NUR ---
REASSESSMENT COMPLETED PER FLOW SHEETS. PT AROUSES EASILY WITH VOICES, NO SIGNS OF DISTRESS NOTED AT THIS TIME. VSS. REPOSITIONED FOR COMFORT. HOB UP. SIDE RAILS UP. CALL LIGHT IN REACH. CPOC.
[2016-09-30] VITALS (24 sets, daily range): BP systolic 84–119; BP diastolic 31–105
--- NOTE | 2016-09-30 01:00 | NUR ---
PT RESTING QUIETLY WITHOUT DISTRESS. NO SIGNS OF ACUTE CHANGES IN PT'S STATUS NOTED. VSS.
--- NOTE | 2016-09-30 03:00 | NUR ---
REASSESSMENT COMPLETED. SEE FLOW FLOW SHEETS. PT RESTING QUIETLY WITHOUT DISTRESS, VSS. NO NEEDS VOICES AT THIS TIME. REPOSITIONED FOR COMFORT. CALL LIGHT IN REACH. CPOC.
[2016-09-30 04:44] LABS: ANION GAP 21.8 mmol/L (8-16); BASOPHILS 1.6 % (0-2); CALCIUM 8.6 mg/dL (8.5-10.1); CARBON DIOXIDE 19.9 mmol/L (21.0-32.0); CREATININE - SERUM 6.9 mg/dL (0.6-1.3); DIGOXIN 0.92 ng/mL (0.90-2.00); EOSINOPHILS 3.6 % (0-7); HEMATOCRIT 28.5 % (36.0-48.0); HEMOGLOBIN 8.7 g/dL (12-16); IMMATURE GRANULOCYTES 4.9 % (0-5); LYMPHOCYTES 14.6 % (15-50); MCH 27.9 pg (26.0-34.0); MCHC 30.5 g/dL (31.0-37.0); MCV 91.3 fL (80.0-100.0); MEAN PLATELET VOLUME 10.6 fL (7.4-10.4); MONOCYTES 6.9 % (2-11); NEUTROPHILS 68.4 % (40-80); PLATELET COUNT 173 10x3/uL (130-400); POTASSIUM - SERUM 3.7 mmol/L (3.5-5.1); RBC 3.12 10x6/uL (4.00-5.40); WBC 20.7 10x3/uL (4.8-10.8)
[2016-09-30 04:49] LABS: PHOSPHOROUS 5.8 mg/dL (2.5-4.9)
--- NOTE | 2016-09-30 07:00 | NUR ---
SHIFT ASSESSMENT COMPLETED, PT ALERT TO VERBAL STIMULI, CONFUSION NOTED, REOREINTED NEEDED, LEFT IJ TRIALYSIS CATHETER IN PLACE DRESSING CDI, FRANCIS CATHETER IN PLACE, NO OUTPUT NOTED, O2 2L NC, REPOSITIONED, DENIES ALL NEEDS, VSS, WILL CONTINUE TO MONITOR
--- NOTE | 2016-09-30 09:00 | NUR ---
NO CHANGES NOTED, VSS, REPOSITIONED, DENIES ALL NEEDS, CALL LIGHT WITHIN REACH, WILL CONTINUE TO MONITOR
--- NOTE | 2016-09-30 11:00 | NUR ---
PT REPOSITIONED, LINEN CHANGED AND PARTIAL BED BATH GIVEN, VSS, WILL CO NTIUE TO LESLEE LUCIANO
--- NOTE | 2016-09-30 13:00 | NUR ---
PT REPOSITIONED, VSS, NO CHANGES NOTED, WILL CONTINUE TO MONITOR
--- NOTE | 2016-09-30 13:32 | NUR ---
WOUND VAC DRESSING CHANGE WOUND TYPE: chronic open wound WOUND LOCATION: right thigh WOUND AGE IN MONTHS: DEBRIDEMENT ATTEMPTED IN LAST 10 DAYS? DATE/TYPE: SERIAL DEBRIDEMENTS REQUIRED? MEASUREMENT DATE: 09/30/16 5cm x 6cm x 4cm x 8.8cm @ 3 oclock x 5cm @ 4 oclock x 4.5cm from 5-6 oclock FULL THICKNESS? yes MUSCLE, TENDON OR BONE EXPOSED? no UNDERMINING? yes TUNNELING/SINUS? yes APPEARANCE OF WOUND BED : pink, brown EXUDATE (AMOUNT, COLOR, ODOR): moderate sanguinous/odor has decreased FOAM TYPE: ellis # OF PIECES USED: 1(tunnel) + 1(wound bed)+1(trac pad)=3 ttl EDUCATION: pt sedated -125mmhg mod continuous
--- NOTE | 2016-09-30 15:00 | NUR ---
PT REPOSITIONED, ABLE TO VOICE NEEDS, FLUIDS PROVIDED, DENIES PAIN AND ALL NEEDS, VSS, WILL CONTINUE TO MONITOR
--- NOTE | 2016-09-30 17:45 | NUR ---
CHANGED SHEET AND GOWN. WAS SOILED WITH GREEN/BROWN STOOL
--- NOTE | 2016-09-30 18:27 | NUR ---
FAMILY AT BEDSIDE. UPDATE PROVIDED, QUESTIONS ANSWERED. JOSHUA WITH DIALYSIS PREPARING FOR DIALYSIS.
--- NOTE | 2016-09-30 19:30 | NUR ---
REPORT RECIEVED, ININTIAL ASSESSMENT COMPLETE, PLEASE SEE FLOW SHEETS FOR DETAILS. LUNG SOUNDS DIMINISHED IN ALL LOBES, S1S2 AUSCULTATED AND NSR NOTED ON MONITIOR. PPP. DENIES PAIN/NEEDS ATT. WOUND VAC IN PLACE AND RUNNING. ORAL CARE AND TURNING PROVIDED. VSS ATT, BED LOW AND LOCKED, CALL LIGHT IN REACH. PT CONFUSED TO CURRENT YEAR BUT ORIENTED TO PLACE, SITUATION, AND SELF, WAS ABLE TO TELL ME CURRENT PRESIDENT. WILL CPOC.
--- NOTE | 2016-09-30 21:15 | NUR ---
PT RECIEVING HD ATT. TOLERATING WELL. DENIES PAIN/NEEDS ATT. BED LOW AND LOCKED, CALL LIGHT IN REACH. ORAL CARE AND TURNING PROVIDED. WILL CPOC.
--- NOTE | 2016-09-30 22:34 | NUR ---
PT COPMPLAINED OF PAIN IN BACK AND HIPS, GAVE TYLENOL PER ORDERS, WILL FOLLOW UP AND MONITOR.
--- NOTE | 2016-09-30 22:40 | NUR ---
Mrs. Escobar had bedside hemodialysis today via her left IJ Trialysis from 1915 until 2215. Average blood flow was 400 mls/minute. Net fluid removed was 3000 mls. Pt. was a little hypotensive during treatment but her (map) never dropped below 60. Post vital signs were: B/P: 102/58, HR: 74, Temp: 97.4, Resps:18.
--- NOTE | 2016-09-30 23:09 | NUR ---
REASSESSMENT COMPLETE, PLEASE SEE FLOW SHEETS FOR DETAILS. HD FINISHED NOW, 3L OF FLUID REMOVED PER HD NURSE. PT COMPAINED THAT STILL IN PAIN 9/10 IN BACK AND HIPS, GAVE NORCO PER ORDERS. VSS ATT, BED LOW AND LOCKED, CALL LIGHT IN REACH. WILL CPOC.
[2016-10-01] VITALS (23 sets, daily range): BP systolic 87–126; BP diastolic 43–83
--- NOTE | 2016-10-01 00:43 | NUR ---
PT RESTING, WAS C/O PAIN IN LEFT HIP AND LEG, NOW RESTING WITH NO S&S OF ACUTE DISTRESS NOTED. VSS ATT, BED LOW AND LOCKED, CALL LIGHT IN REACH. WILL CPOC.
--- NOTE | 2016-10-01 03:01 | NUR ---
REASSESSMENT COMPLETE, PLEASE SEE FLOW SHEETS FOR DETAILS. ORAL CARE AND TURNING PROVIDED. VSS, BED LOW AND LOCKED, CALL LIGHT IN REACH. WILL CPOC.
[2016-10-01 04:28] LABS: BASOPHILS 1.3 % (0-2); EOSINOPHILS 1.8 % (0-7); HEMATOCRIT 27.3 % (36.0-48.0); HEMOGLOBIN 8.4 g/dL (12-16); IMMATURE GRANULOCYTES 3.2 % (0-5); LYMPHOCYTES 11.8 % (15-50); MCH 28.1 pg (26.0-34.0); MCHC 30.8 g/dL (31.0-37.0); MCV 91.3 fL (80.0-100.0); MEAN PLATELET VOLUME 10.9 fL (7.4-10.4); MONOCYTES 6.3 % (2-11); NEUTROPHILS 75.6 % (40-80); PLATELET COUNT 149 10x3/uL (130-400); RBC 2.99 10x6/uL (4.00-5.40); RDW 19.1 % (11.5-14.5); WBC 21.1 10x3/uL (4.8-10.8)
--- NOTE | 2016-10-01 05:00 | NUR ---
PLEASE SEE AMENDED NOTE AT 0643 FROM 0639 THAT OCCURRED AT 0500. PT WAS RESTING WELL AND HAD NO NEEDS. VSS ETC.
[2016-10-01 05:24] LABS: ANION GAP 17.7 mmol/L (8-16); CALCIUM 8.6 mg/dL (8.5-10.1); CARBON DIOXIDE 24.7 mmol/L (21.0-32.0); DIGOXIN 0.69 ng/mL (0.90-2.00); POTASSIUM - SERUM 3.4 mmol/L (3.5-5.1)
[2016-10-01 05:27] LABS: PHOSPHOROUS 4.3 mg/dL (2.5-4.9)
--- NOTE | 2016-10-01 06:15 | NUR ---
FAMILY AT BEDSIDE, GAVE UPDATE. NO NEEDS ATT. WILL CPOC.
--- NOTE | 2016-10-01 06:39 | NUR ---
PT RESTING, NO S&S OF ACUTE DISTRESS NOTED. ORAL CARE AND TURNING PROVIDED. BED LOW AND LOCKED, CALL LIGHT IN REACH. VSS, WILL CPOC.
--- NOTE | 2016-10-01 10:31 | NUR ---
0700 RECEIVED PT RESTING QUIETLY IN BED VSS, NO COMPLAINTS AND NO DISTRESS NOTED. 0730 BREAKFAST TRAY TAKEN TO PT, PT REFUSED STATED SHE DOESN'T REALLY EAT BREAKFAST, PT WAS NOTED TO HAVE HAD A BM, PT CLEANED AND LINENS CHANGED. SKIN APPEARS RED WITH WEEPING AND OPEN AREAS TO ABDOMENAL FOLDS AND BUTTOCKS, NYSTATING POWDER APPLIED AND CREAMS PER TO. 0900 DAD AT BEDSIDE MEDS GIVEN WHOLE IN APPLESAUCE WITH OUT DIFFICULTY. QUESTIONS ANSWERED. NO COMPLAINTS OR REQUEST AT THIS TIME.
--- NOTE | 2016-10-01 19:03 | NUR ---
REPORT RECIEVED, LOOKED OVER ORDERS, NOTICED 1 UNIT OF BLOOD WAS SUPPOSED TO BE GIVEN DURING HD, ASKED NURSE AND HD NURSE AND IT WAS NOT GIVEN. PAGED AND SPOKE TO DR JOHANSEN AND HE SAID TO HOLD IT AND HE WOULD LOOK AND SEE IF IT NEEDED TO BE GIVEN TOMORROW.
--- NOTE | 2016-10-01 19:56 | NUR ---
DR JOHANSEN CAME ON UNIT, TALKED ABOUT TRANSFERING PT TO FLOOR HER HD WENT WELL. HE SAID HE WAS OKAY WITH IT. WILL CONTACT PRIMARY MD FOR FURTHER INSTRUCTION.
--- NOTE | 2016-10-01 20:01 | NUR ---
PAGED DR PATEL, WILL AWAIT CALL BACK.
--- NOTE | 2016-10-01 20:03 | NUR ---
SPOKE WIT DR PATEL, HE WOULD LIKE FOR HER TO STAY IN ICU FOR TONIGHT AND HE WILL SEE HER IN MORNING AND GIVE ORDERS FOR TRANSFER THEN. HE ALSO SAID IF WE NEED A BED, TO CALL HIM AND HE MAY ALLOW A TRANSFER IN THAT CASE.
--- NOTE | 2016-10-01 21:00 | NUR ---
PT HAS HAD BM, NEED MORE ASSISTANCE TO CLEAN UP, WILL CLEAN UP BARRY WHEN ASSISTANCE AVAILABLE. PT DENIES PAIN/NEEDS ATT. VSS, BED LOW AND LOCKED, CALL LIGHT IN REACH. WILL CPOC.
--- NOTE | 2016-10-01 23:00 | NUR ---
Reassessment complete, please see flow sheets for details. Full bed bath and linen change provided att. Pt tolerated well. Oral care and turning provided. Vss, bed low and locked, call light in reach. Will CPOC. Small care also provided att.
[2016-10-02] VITALS (13 sets, daily range): BP systolic 93–126; BP diastolic 39–64
--- NOTE | 2016-10-02 02:42 | NUR ---
REASSESSMENT COMPLETE, PLEASE SEE FLOW SHEETS FOR DETAILS. ORAL CARE AND TURNING PROVIDED. DENIES PAIN/NEEDS ATT. BED LOW AND LOCKED, CALL LIGHT IN REACH. VSS, WILL CPOC.
[2016-10-02 04:13] LABS: BASOPHILS 1.2 % (0-2); EOSINOPHILS 1.8 % (0-7); HEMATOCRIT 27.7 % (36.0-48.0); HEMOGLOBIN 8.7 g/dL (12-16); IMMATURE GRANULOCYTES 2.6 % (0-5); LYMPHOCYTES 12.1 % (15-50); MCH 28.7 pg (26.0-34.0); MCHC 31.4 g/dL (31.0-37.0); MCV 91.4 fL (80.0-100.0); MEAN PLATELET VOLUME 11.6 fL (7.4-10.4); MONOCYTES 6.7 % (2-11); NEUTROPHILS 75.6 % (40-80); PLATELET COUNT 148 10x3/uL (130-400); RBC 3.03 10x6/uL (4.00-5.40); RDW 19.5 % (11.5-14.5); WBC 22.3 10x3/uL (4.8-10.8)
[2016-10-02 04:34] LABS: ANION GAP 19.3 mmol/L (8-16); CALCIUM 8.9 mg/dL (8.5-10.1); CARBON DIOXIDE 23.7 mmol/L (21.0-32.0); CREATININE - SERUM 3.6 mg/dL (0.6-1.3); DIGOXIN 0.67 ng/mL (0.90-2.00); PHOSPHOROUS 3.7 mg/dL (2.5-4.9)
--- NOTE | 2016-10-02 04:50 | NUR ---
ASKED FOR PAIN PILL, PAIN 10/10 IN BACK, NORCO GIVEN PER ORDERS. WILL MONITOR.
--- NOTE | 2016-10-02 10:28 | NUR ---
0700 RECEIVED PT IN BED EYES CLOSED, OPENS TO SPEECH ANSWERS ALL QUESTIONS APPROP. NO DISTRESS NOTED. 0730 PT OFFERED BREAKFAST TRAY, REFUSED STATES SHE DOESN'T EAT BREAKFAST 0945 PT NOTED WITH LARGE BM, PT CLEANED AND LINENS CHANGED 1015 PT GIVEN PRN PAIN MED C/O PAIN GENERAL
--- NOTE | 2016-10-02 13:44 | NUR ---
PT RECEIVED TO ROOM 2140, VIA BED, PT ORIENTED TO ROOM AND CALL LIGHT. PT CLEANED UP FROM INCONT EPISODE. PT DENIES ANY NEEDS AT THIS TIME. CALL LIGHT IN REACH, NAD NOTED, CALL LIGHT IN REACH, WILL CONTINUE TO MONITOR.
--- NOTE | 2016-10-02 14:33 | NUR ---
10MG OF NORCO GIVEN FOR PAIN LEVEL OF 6/10. LACTULOSE DOSE GIVEN AT THIS TIME. PT PROVEDED WITH DIET [place]. DAD AT BEDSIDE, CALL LIGHT IN REACH, NAD NOTED, WILL CONTINUE TO MONITOR.
--- NOTE | 2016-10-02 20:01 | NUR ---
RESUMED CARE OF PT, LYING IN BED RESPIRATIONS EVEN AND UNLABORED ON 2LPM VIA NC. 78 SR ON TELEMETRY. LEFT IJ TRIALYSIS INFUSING NS @ KVO. FRANCIS TO GRAVITY. WOUND VAC IS PATENT. NO NEEDS VOICED AT THIS TIME. CALL LIGHT IN REACH. SEE NURSE ASSESSMENT.
[2016-10-03] VITALS: BP 114/67
[2016-10-03 04:00] VITALS: BP 102/52
[2016-10-03 05:50] LABS: BASOPHILS 1.1 % (0-2); HEMATOCRIT 27.1 % (36.0-48.0); HEMOGLOBIN 8.3 g/dL (12-16); IMMATURE GRANULOCYTES 1.7 % (0-5); LYMPHOCYTES 14.6 % (15-50); MCHC 30.6 g/dL (31.0-37.0); MCV 91.6 fL (80.0-100.0); MEAN PLATELET VOLUME 10.5 fL (7.4-10.4); MONOCYTES 8.9 % (2-11); NEUTROPHILS 70.7 % (40-80); PLATELET COUNT 132 10x3/uL (130-400); RBC 2.96 10x6/uL (4.00-5.40); RDW 19.4 % (11.5-14.5); WBC 18.1 10x3/uL (4.8-10.8)
[2016-10-03 06:08] LABS: ANION GAP 19.7 mmol/L (8-16); CALCIUM 8.9 mg/dL (8.5-10.1); CARBON DIOXIDE 22.6 mmol/L (21.0-32.0); CREATININE - SERUM 4.9 mg/dL (0.6-1.3); PHOSPHOROUS 4.1 mg/dL (2.5-4.9); POTASSIUM - SERUM 3.3 mmol/L (3.5-5.1)
--- NOTE | 2016-10-03 07:25 | NUR ---
AM ROUNDING DONE WITH PATIENT SEEN TO BE IN DROPLET ISOLATION. FATHER AT [facility]. ON SR, HR 74. PATIENT IS DNR CODE STATUS. WOUND VAC SEEN TO LEFT THIGH WITH NO LEAKS SEEN OR HEARD. FRANCIS CATH SEEN WITH SCANT AMOUNT OF URINE TO BAG, WILL MONITOR THIS. LEFT IJ TRIALYSIS SEEN WITH INTACT DRESSING WITH NS INFUSING AT 10 CC/HR. ON 2.3 L PER NC. WILL CPOC.
[2016-10-03 08:00] VITALS: BP 96/53
--- NOTE | 2016-10-03 09:32 | NUR ---
AM MEDS GIVEN WITH APPLESAUCE.
--- NOTE | 2016-10-03 10:01 | NUR ---
Patient Name: JANETTE RUSSO Encounter No: [id number] : 1970 Primary Insurance: MEDICARE A & B Anticipated DC Date: 10-03-2016 Planned [facility]position[facility] External Planned Provider: EYAL IRIZARRY DCP follow-up note: CM RECEIVED CALL FROM [facility], , WHO REPORTS THAT [facility] PLANS TO ACCEPT PT TODAY AND [facility] WILL CALL CM SHORTLY WITH FINAL ADMISSION DETERMINATION SHORTLY. CM MET WITH PT AND FATHER IN ROOM WHO ARE IN AGREEMENT WITH DISCHARGE TO [facility] TODAY IF ACCEPTED. IMPORTANT MESSAGE FROM MED[employer] PROVIDED AND EXPLAINED. CM WAITING ADMISSION DETERMINATION FROM [facility]. Adriel Kramer, CASE MANAGEMENT
--- NOTE | 2016-10-03 10:35 | NUR ---
IN ROOM DIALYSIS BEING SET UP.
--- NOTE | 2016-10-03 11:27 | NUR ---
WOUND VAC DRESSING CHANGE WOUND TYPE: chronic nonhealing ulcer WOUND LOCATION: left thigh WOUND AGE IN MONTHS: DEBRIDEMENT ATTEMPTED IN LAST 10 DAYS? DATE/TYPE: SERIAL DEBRIDEMENTS REQUIRED? MEASUREMENT DATE: 10/03/16 6cm x 5cm x 2.5cm x 7.5cm @ 3 oclock x 4.5cm from 4-7 oclock (improved) FULL THICKNESS? yes MUSCLE, TENDON OR BONE EXPOSED? no UNDERMINING? yes TUNNELING/SINUS? yes APPEARANCE OF WOUND BED : red with necrotic tissue on edge EXUDATE (AMOUNT, COLOR, ODOR): moderate/sanguinous/no odor FOAM TYPE: black # OF PIECES USED: 3 pieces (1 to tunnel, 1 to wound bed, 1 for trac pad total 3 pieces) -125mmhg mod continuous Pt tolerated well.
[2016-10-03 12:00] VITALS: BP 97/45
[2016-10-03 16:00] VITALS: BP 90/51
--- NOTE | 2016-10-03 16:52 | NUR ---
PATIENT HAS HAD 3 LOOSE STOOLS THIS SHIFT SO FAR. EATING SUPPER. TOLERATED 4L TAKEN OFF OF DIALYSIS. FATHER AT BEDSIDE.
--- NOTE | 2016-10-03 19:12 | NUR ---
PT IN BED RESTING. ASKS FOR PAIN MEDS WITH NIGHT TIME MEDS. BP 93/57 RESPIRATIONS 18 WILL CHECK BP AGAIN AFTER REASSESMENT. PT DENIES ANY OTHER NEEDS. NO S/S OF DISTRESS. WILL CONTINUE TO MONITOR
--- NOTE | 2016-10-03 22:59 | NUR ---
PT STATES PAIN IS NOW 7/10 LOCATION IN BILATERAL HIPS. BP 92/58 RESPIRATIONS 18 PT DENIES ANY NEEDS. NO S/S OF DISTRESS. TRIED REPOSITONING. PT WILL CALL IF ANY NEEDS OCCUR
[2016-10-03 23:00] VITALS: BP 93/57
--- NOTE | 2016-10-04 01:27 | NUR ---
PT NOT ABLE TO STAY AWAKE RESPONSIVE TO VERBAL STIMULI AND CONTACT STIMULI BP IS 98/57 RESPIRATIONS 16. OUTPUT FROM [facility] CATH IS 4ML CONCENTRATED DARK BROWN URINE. NO S/S OF DISTRESS WILL CONTINUE TO MONITOR
[2016-10-04 01:51] VITALS: BP 98/53
[2016-10-04 05:04] LABS: BASOPHILS 1.3 % (0-2); EOSINOPHILS 2.2 % (0-7); HEMATOCRIT 28.3 % (36.0-48.0); HEMOGLOBIN 8.7 g/dL (12-16); IMMATURE GRANULOCYTES 1.6 % (0-5); LYMPHOCYTES 17.4 % (15-50); MCH 27.8 pg (26.0-34.0); MCHC 30.7 g/dL (31.0-37.0); MCV 90.4 fL (80.0-100.0); MEAN PLATELET VOLUME 10.8 fL (7.4-10.4); NEUTROPHILS 67.5 % (40-80); PLATELET COUNT 130 10x3/uL (130-400); RBC 3.13 10x6/uL (4.00-5.40); RDW 19.1 % (11.5-14.5); WBC 18.3 10x3/uL (4.8-10.8)
[2016-10-04 05:14] LABS: ALBUMIN 1.9 g/dL (3.4-5.0); ANION GAP 20.5 mmol/L (8-16); BILIRUBIN - TOTAL 1.16 mg/dL (0.2-1.3); CALCIUM 9.3 mg/dL (8.5-10.1); CARBON DIOXIDE 22.1 mmol/L (21.0-32.0); CREATININE - SERUM 5.6 mg/dL (0.6-1.3); MAGNESIUM - SERUM 2.1 mg/dL (1.8-2.4); PHOSPHOROUS 4.6 mg/dL (2.5-4.9); POTASSIUM - SERUM 3.6 mmol/L (3.5-5.1); PROTEIN - SERUM 7.3 g/dL (6.4-8.2)
[2016-10-04 05:36] VITALS: BP 104/54
--- NOTE | 2016-10-04 05:42 | NUR ---
PT RESTING IN BED. PT HAS HAD LINEN AND GOWN CHANGED AND HAS BEEN WIPED DOWN. AND NYSTATIN PUT ON. PILLOWCASE BETWEEN FOLDS OF SKIN. PT STILL NOT ABLE TO STAY AWAKE AT TIMES VERBAL STIMULI AROUSES PT. ONLY 6ML OF OUTPUT FROM FOLLEY. CONCENTRATED DARK BROWN. NO S/S OF DISTRESS WILL CONTINUE TO MONITOR PT.
--- NOTE | 2016-10-04 07:30 | NUR ---
RECEIVED REPORT. ASSUMED CARE OF PATIENT. CALL LIGHT WITHIN REACH. PATIENT ALERT TO NAME, AMMONIA ELEVATED THIS AM. FRANCIS CATH PATENT. WOUND VAC PATENT TO LEFT THIGH. PATIENTS DAD IS AT BEDSIDE. PATIENT FOUND WITH O2 SITTING ON FOREHEAD, PATIENT CONTINUES TO TAKE OXYGEN OFF. OXYGEN REAPPLIED AND ENCOURAGED TO KEEP ON. NO ACUTE DISTRESS NOTED. REPORTED THAT PATIENT SHOULD BE TRANFERRING TO [facility] TODAY.
[2016-10-04 08:00] VITALS: BP 97/61
--- NOTE | 2016-10-04 08:48 | NUR ---
SPOKE WITH DR. GARZA. HE WILL REPLACE TRIALYSIS CATH TODAY AT BEDSIDE.
[2016-10-04 12:03] VITALS: BP 113/56
--- NOTE | 2016-10-04 15:52 | NUR ---
Patient Name: JANETTE RUSSO Encounter No: [id number] : 1970 Primary Insurance: MEDICARE A & B Anticipated DC Date: 10-04-2016 [facility] External Planned Provider: EYAL IRIZARRY DCP follow-up note: CM CALLED AND SPOKE TO [facility], , WHO REPORTS THEY WILL ACCEPT PT TODAY. CM NOTIFIED PT'S FATHER OUTSIDE PT'S ROOM, PT'S FATHER REPORTS PT IS HAVING NEW DIALYSIS CATHETER PLACED AND THEY ARE IN AGREEMENT WITH DISCHARGE TO [facility] TODAY. CM FAXED DISCHARGE INFORMATION TO [facility] AT [phone]. NURSE REPORT TO BE CALLED TO [facility], . PT TO TRANSPORT VIA AMBULANCE. DYLLAN KENNEDY, CASE MANAGEMENT
--- NOTE | 2016-10-04 16:00 | NUR ---
AT BEDSIDE FOR TRIALYSIS PLACEMENT AT THIS TIME.
--- NOTE | 2016-10-04 16:34 | NUR ---
FSBS 202. 4 UNITS HUMALOG ADMINISTERED PER SLIDING SCALE.
--- NOTE | 2016-10-04 16:34 | NUR ---
MEDICATED FOR PAIN AT THIS TIME. NO DISTRESS.
--- NOTE | 2016-10-04 17:16 | NUR ---
REPORT CALLED TO MARILOU AT [facility] [phone]. INFORMED HER THAT [facility] IS BACKED UP SO IT MAY BE AWHILE BEFORE SHE IS TRANSPORTED. PATIENT STILL HAS TO HAVE LEFT IJ TRIALYSIS REMOVED AT THIS TIME.
--- NOTE | 2016-10-04 17:24 | NUR ---
DIRECTOR OF [facility] CALLED, LOIS BEJARANO, DUE TO PATIENT NEWLY PLACED TRIALYSIS CATHETER SEEPING FROM INSERTION SITE, THE FACILITY WOULD RATHER WAIT UNTIL THE MORNING FOR THE PATIENT TO BE TRANSFERRED BECAUSE IF PATIENT DOES NOT CLOT FROM THE SITE, [facility] DOES NOT HAVE THE RESOURCES TO HAVE A SURGEON COME IN AND FIX IT. [facility] WILL BE GLAD TO ACCEPT PATIENT IN AM WHEN SITE HAS CLOTTED. INFORMED CASE MANAGEMENT.
--- NOTE | 2016-10-04 19:12 | NUR ---
PT HOB 50,THE NEW RIGHT IJ TRYALISIS IS STILL BLEEDING FROM INCISON SITE. STEVE WHOM GAVE ME REPORT CHANGED IT MULTIPLE TIMES APPROX 4. R/T THE AMOUNT OF BLEEDING. DR GARZA CALLED, ORDERS ARE TO CALL HOUSE SUP. AND GET A SHEET OF CIBRILAR (MISPELLED) APPLY TO INCISON SITE. COVER WITH PRESSURE DRESSING AND CONTINUE TO DO A NORMAL DRESSING CHANGE. PT DENIES ANY NEEDS. RESPIRATIONS ARE EVEN AND UNLABORED. NO S/S OF DISTRESS, WILL CONTINUE TO MONITOR
--- NOTE | 2016-10-04 19:47 | NUR ---
SPOKE TO ABOUT PATIENT CONTINUES TO HAVE SMALL AREA AT INSERTION SITE OF TRIALYSIS CATHETER THAT IS SEEPING BLOOD. MD MADE AWARE OF ALL INTERVENTIONS THAT THIS DECISION SUPPORT MANAGER HAS PROVIDED. MD PLEASED WITH INVENTIONS PROVIDED. MD GAVE ORDERS TO CONTINUE PREVIOUS INTERVENTIONS BUT APPLY CIBRILAR TO INSERTION SITE, REAPPLY PRESSURE DRESSING. THANKED FOR RETURNING CALL AND EDUCATION GIVEN.
--- NOTE | 2016-10-04 19:49 | NUR ---
LOOM CHANGEOVER OPERATOR GANESH MADE AWARE OF THE NEED FOR CIBRILAR AT THIS TIME.
[2016-10-04 21:01] VITALS: BP 112/53
--- NOTE | 2016-10-04 22:05 | NUR ---
PT RIGHT IJ TRYALISIS DRESSING HAS BEEN CHANGED. PT TOLERATED BUT C/O TENDERNESS IN AREA. PT HAS NO NEEDS AT THIS TIME. NO S/S OF DISTRESS WILL CONTINUE TO MONITOR
--- NOTE | 2016-10-05 01:50 | NUR ---
AT 2208 I MADE A MED ERROR. PT BLOOD SUGAR IS 189 ACCORDING TO SLIDING SCALE SHE GETS 2 UNITS. WHILE IN THE ROOM SADIE COSIGNED AND I TOLD HER THE BLOOD SUGAR WAS 262 (WHICH WAS THE PT BLOOD SUGAR NEXT STORE IN ) WHICH CALLS FOR 6 UNITS. I INJECTED THE 6 UNITS TO THE RIGHT ARM. WE CHECKED THE SUGAR AND SEEN I HAD TOLD HER THE WRONG NUMBER. CHERYL THE CHARGE NURSE IS TOLD, ELENA THE HOUSE SUP IS NOTIFIED. WE ARE TO FILL OUT A INCIDENT REPORT ONLINE, PT BLOOD SUGAR WAS CHECKED AGAIN AT 0141 IT IS 167. WE WILL CHECK IT AGAIN AT 0430
[2016-10-05 04:18] VITALS: BP 112/54
--- NOTE | 2016-10-05 04:45 | NUR ---
BLOOD SUGAR TAKEN [id number]. PT DENIES ANY NEEDS. RESPIRATIONS EVEN AND UNLABORED. NO S/S OF DISTRESS. WILL CONTINUE TO MONITOR
[2016-10-05 05:27] LABS: BASOPHILS 1.5 % (0-2); HEMATOCRIT 27.1 % (36.0-48.0); HEMOGLOBIN 8.5 g/dL (12-16); IMMATURE GRANULOCYTES 1.8 % (0-5); LYMPHOCYTES 15.9 % (15-50); MCH 28.1 pg (26.0-34.0); MCHC 31.4 g/dL (31.0-37.0); MCV 89.4 fL (80.0-100.0); MEAN PLATELET VOLUME 11.4 fL (7.4-10.4); MONOCYTES 12.6 % (2-11); NEUTROPHILS 64.2 % (40-80); PLATELET COUNT 124 10x3/uL (130-400); RBC 3.03 10x6/uL (4.00-5.40); RDW 18.8 % (11.5-14.5); WBC 17.3 10x3/uL (4.8-10.8)
[2016-10-05 05:45] LABS: ANION GAP 19.5 mmol/L (8-16); CALCIUM 9.1 mg/dL (8.5-10.1); CARBON DIOXIDE 21.1 mmol/L (21.0-32.0); CREATININE - SERUM 6.5 mg/dL (0.6-1.3); PHOSPHOROUS 4.3 mg/dL (2.5-4.9); POTASSIUM - SERUM 3.6 mmol/L (3.5-5.1)
--- NOTE | 2016-10-05 06:47 | NUR ---
PT STILL FALLING ASLEEP DURING TASK. WOKE BY VOICE AND TOUCH. STILL HAS MOMENTS OF CONFUSION. FATHER IS AT BEDSIDE. DRESSING NEEDS TO BE CHANGED AGAIN RIGHT IJ TRYALISIS STILL HAS BLEEDING BUT NOT MUCH VOLUME OF BLOOD BEFORE. FOLLEY CATH STILL HAS NO OUTPUT. RESPIRATIONS EVEN AND UNLABORED. NO S/S OF DISTRESS. WILL CONTINUE TO MONITOR PT
[2016-10-05 08:00] VITALS: BP 112/51
--- NOTE | 2016-10-05 10:25 | NUR ---
WOUND VAC AND 3 PIECES OF BLACK FOAM REMOVED FROM LEFT THIGH. LIGHTLY PACKED WITH KERLIX MOSITIONED WITH NORMAL SALINE AND COVERED WITH NON ADHERENCE QUAZE, COVERED WITH MEDIPORE TAPE AND DATED.
--- NOTE | 2016-10-05 11:25 | NUR ---
D/C TO [facility] PER THEIR STAFF
--- NOTE | 2016-10-05 11:28 | NUR ---
TRANSFER TO [facility] PER [facility]
== END 2016-10-05 11:28 | disposition short-term general hospital (02) | DRG 871 ==
LOC: D.M2 → D.ER 16:05 → D.M2 19:06 → D.ICU 19:06 → D.M2 09-07 11:17 → D.ICU 09-27 19:53 → D.M2 10-02 13:15
PROVIDERS: Family Medicine; Internal Medicine Nephrology; Nurse Practitioner Family; ADMIT Family Medicine
PROC: 02HV33Z Insertion of Infusion Device into Superior Vena Cava, Percutaneous Approach (ICD-10-PCS; principal; 2016-09-12)
PROC: B5181ZA Fluoroscopy of Superior Vena Cava using Low Osmolar Contrast, Guidance (ICD-10-PCS; 2016-09-12)
PROC: 5A1D60Z (ICD-10-PCS; 2016-09-13)
DX: A41.9 Sepsis, unspecified organism (principal); G93.41 Metabolic encephalopathy; N17.9 Acute kidney failure, unspecified; N39.0 Urinary tract infection, site not specified; Z68.45 Body mass index [BMI] 70 or greater, adult; L02.416 Cutaneous abscess of left lower limb; B96.20 Unspecified Escherichia coli [E. coli] as the cause of diseases classified elsewhere; E66.01 Morbid (severe) obesity due to excess calories; E78.5 Hyperlipidemia, unspecified; I10 Essential (primary) hypertension; E11.42 Type 2 diabetes mellitus with diabetic polyneuropathy; I27.2 Other secondary pulmonary hypertension; E03.9 Hypothyroidism, unspecified; G89.29 Other chronic pain; J45.909 Unspecified asthma, uncomplicated; M25.552 Pain in left hip; Z79.4 Long term (current) use of insulin; D64.9 Anemia, unspecified; I87.2 Venous insufficiency (chronic) (peripheral); E87.5 Hyperkalemia; K72.90 Hepatic failure, unspecified without coma; K74.60 Unspecified cirrhosis of liver; I48.0 Paroxysmal atrial fibrillation